=== PATIENT | female | born 1930 | race Caucasian/White ===

== ENCOUNTER 2016-12-20 10:37 | Inpatient (IN) ==
--- OUTSIDE RECORDS SUMMARY | 2016-12-20 10:58 | External Medical Summary | Summary of Care ---
:1930 Author Name Bandar Santana M.D. Address Unavailable Unavailable , Care Team Providers Name Role Phone Max Salinas, Bandar Frye Unavailable Unavailable David Epperson M.D. Unavailable Unavailable Uday Santana Unavailable Unavailable [facility] (MD) Unavailable Unavailable [facility] (MD) Unavailable Unavailable Unavailable Unavailable Unavailable Functional Status Functional Status Health Issues Name Dates Details Functional status health issues are not documented Status: Cognitive Status Health Issues Name Dates Details Cognitive status health issues are not documented Status: Problems Name Dates Details Do Not Resuscitate Form In Chart Active Status: Active Hyperglycemia (790.29, R73.9) Status: Active Left ankle pain (719.47, M25.572) Status: Active Syncope (780.2, R55) Status: Active NSAID long-term use (V58.64, Z79.1) Status: Active Arthritis (716.90, M19.90) Status: Active Edema (782.3, R60.9) Status: Active Encounter for screening mammogram for malignant neoplasm of breast (V76.12, Z12.31) Status: Active Menopause (627.2, Z78.0) Status: Active Orthopedic aftercare for joint replacement (V54.81, Z47.1) Status: Active Osteoarthritis of right hand, 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, 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 Osteoporosis (733.00, M81.0) Status: Active Diastolic dysfunction (429.9, I51.9) Status: Active Hypercholesterolemia (272.0, E78.00) Status: Active 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, 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) Status: Active Right knee pain (719.46, M25.561) Status: Active Gastroesophageal reflux disease without esophagitis (530.81, K21.9) Status: Active De Quervain's tenosynovitis (727.04, M65.4) Status: Active Pes anserine bursitis (726.61, M70.50) Status: Active Knee pain, left anterior (719.46, M25.562) Status: Active Allergic rhinitis (477.9, J30.9) Status: Active Pulmonary hypertension, mild (416.8, I27.2) Status: Active Acute frontal sinusitis, recurrence not specified (461.1, J01.10) Status: Active Acute bronchitis, unspecified organism (466.0, J20.9) Status: Active CAD (coronary atherosclerotic disease) (414.00, I25.10) Status: Active PTCA Status: Active Hyperlipidemia (272.4, E78.5) Status: Active Dermatitis (692.9, L30.9) Status: Active 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, G90.3) Status: Active Anxiety (300.00, F41.9) Status: Active Hypotension (458.9, I95.9) Status: Active Anemia (285.9, D64.9) Status: Active Abdominal pain, acute, right upper quadrant (789.01, R10.11) Status: Active Abdominal pain, acute, left upper quadrant (789.02, R10.12) Status: Active Pain, abdominal, epigastric (789.06, R10.13) Status: Active Nausea and/or vomiting (787.01, R11.2) Status: Active Diarrhea, unspecified type (787.91, R19.7) Status: Active Constipation (564.00, K59.00) Status: Active Hip pain, acute, right (719.45, M25.551) Status: Active Hip pain, left (719.45, M25.552) Status: Active Low back pain (724.2, M54.5) Status: Active 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, Z96.652) Status: Active Arthrofibrosis of knee joint, 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, 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) Status: Active Dizziness (780.4, R42) Status: Active UTI (urinary tract infection) (599.0, N39.0) Status: Active Elevated d-dimer (790.92, R79.89) Status: Active Chest pain (786.50, R07.9) Status: Active Great toe pain, left (729.5, M79.675) Status: Active Left elbow pain (719.42, M25.522) Status: Active Left shoulder pain (719.41, M25.512) Status: Active Rib pain (786.50, R07.81) Status: Active Left knee pain (719.46, M25.562) Status: Active Depression (311, F32.9) Status: Active Shortness of breath (786.05, R06.02) Status: Active Exposure to influenza (V01.79, Z20.828) Status: Active Ingrowing nail (703.0, L60.0) Status: Active Medications Name Dates Details Cetirizine HCl - 10 MG Oral Tablet TAKE 1 TABLET BY MOUTH EVERY DAY FOR ALLERGY Quantity: 31 Refills: 3 Max Dean.Reva, Uday Portillo Start Active Vitamin C 500 MG Oral Tablet take 2 tabs daily Refills: 0 Uday Santana M.D. Start 12-Sep-2011 Active Latanoprost 0.005 % Ophthalmic Solution INSTILL 1 DROP IN BOTH EYES AT BEDTIME. Refills: 0 Uday Santana M.D. Start 04-Sep-2013 Active Hydrocodone-Acetaminophen 5-325 MG Oral Tablet take 1/2-1 tab po every 4-6 hours PRN Quantity: 15 Refills: 0 Max Dean.Reva, Uday Portillo Start 04-Sep-2013 Active Meloxicam 7.5 MG Oral Tablet TAKE 1 TABLET DAILY FOR ARTHRITIS Quantity: 31 Refills: 0 Uday Santana M.D. Start Active Esomeprazole Magnesium 40 MG Oral Capsule Delayed Release TAKE 1 CAPSULE DAILY. Quantity: 31 Refills: 5 Max Dean.Uday Ardon Start Active Vitamin D3 2000 UNIT Oral Tablet TAKE ONE TAB PO DAILY Refills: 0 Max Dean.Uday Ardon Start 20-Feb-2015 Active Atorvastatin Calcium 20 MG Oral Tablet TAKE 1 TABLET DAILY AT BEDTIME Quantity: 31 Refills: 0 Max Dean.Uday Ardon Start 26-Feb-2015 Active Aspirin 81 MG TABS Refills: 0 Zeenat SalinasDomingo Start 10-Mar-2015 Active Mapap 325 MG Oral Tablet TAKE 1 TO 2 TABLETS EVERY 4 HOURS NEEDED Refills: 0 Uday Santana M.D. Start 17-Jun-2015 Active Bisacodyl 10 MG Rectal Suppository INSERT 1 SUPPOSITORY RECTALLY ONCE DAILY. Refills: 0 Max Salinas, Uday Portillo Start 12-Jan-2016 Active Mucinex 600 MG Oral Tablet Extended Release 12 Hour TAKE 1 TABLET TWICE DAILY NEEDED. Refills: 0 Uday Santana M.D. Start 12-Jan-2016 Active Triamcinolone Acetonide 0.1 % External Cream APPLY THIN FILM TO AFFECTED AREA(S) ONCE DAILY. Refills: 0 Uday Santana M.D. Start 12-Jan-2016 Active Milk of Magnesia 1200 MG/15ML Oral Suspension USE DIRECTED. Refills: 0 Max Salinas, Uday Portillo Start 08-Feb-2016 Active Tylenol 325 MG Oral Tablet TAKE 1 TO 2 TABLETS EVERY 4 HOURS NEEDED Refills: 0 Uday Santana M.D. Start 08-Feb-2016 Active Pepto-Bismol 262 MG Oral Tablet Chewable USE DIRECTED. Refills: 0 Uday Santana M.D. Start 08-Feb-2016 Active Maalox Max 400-400-40 MG/5ML Oral Suspension USE DIRECTED. Refills: 0 Uday Santana M.D. Start 08-Feb-2016 Active Mylanta 200-200-20 MG/5ML Oral Suspension USE DIRECTED. Refills: 0 Uday Santana M.D. Start 08-Feb-2016 Active Midodrine HCl - 5 MG Oral Tablet take 1 tablet two times daily Quantity: 60 Refills: 5 Start 16-Feb-2016 Active ZyrTEC Allergy 10 MG Oral Capsule TAKE ONCE DAILY NEEDED FOR ALLERGIES Refills: 0 Uday Santana M.D. Start 12-Apr-2016 Active Ondansetron 4 MG Oral Tablet Dispersible TAKE 1 TABLET EVERY 6 HOURS NEEDED FOR NAUSEA/VOMITTING Quantity: 20 Refills: 0 Max Salinas, Uday Portillo Start 12-Apr-2016 Active Allergies and Adverse Reactions Name Dates Details Codeine Derivatives (Allergy) Reaction: Rash Status: Active Morphine Derivatives (Allergy) Reaction: Rash Status: Active Penicillins (Allergy) Reaction: Rash Status: Active Sulfa Drugs (Allergy) Reaction: Rash Status: Active Past Medical History Name Dates Details History of Abrasion, cheek with infection (910.1, S00.81XA) Status: Resolved History of Acute upper back pain (724.5, M54.9) Status: Resolved History of backache (V13.59, Z87.39) Status: Resolved History of Benign colon polyp (211.3, K63.5) Status: Resolved History of bronchitis (V12.69, Z87.09) Status: Resolved History of candidiasis (V12.09, Z86.19) Status: Resolved History of Dental infection (522.4, K04.7) Status: Resolved History of diarrhea (V12.79, Z87.898) Status: Resolved History of hematuria (V13.09, Z87.448) Status: Resolved History of herpes zoster (V12.09, Z86.19) Status: Resolved History of hypertension (V12.59, Z86.79) Status: Resolved History of Ingrown toenail (703.0, L60.0) Status: Resolved History of Joint pain, knee (719.46, M25.569) Status: Resolved History of Pleural effusion, left (511.9, J90) Status: Resolved History of Thoracic back pain (724.1, M54.6) Status: Resolved History of urethritis (V13.09, Z87.448) Status: Resolved History of Urinary retention (788.20, R33.9) Status: Resolved History of Urinary symptom or sign (788.99, R39.9) Status: Resolved History of Urinary Tract Infection (V13.02) Status: Resolved History of vomiting (V13.89, Z87.898) Status: Resolved History of Wheezing (786.07, R06.2) Status: Resolved Procedures Procedure Dates Details History of Total Abdominal Hysterectomy With Removal Of Both Ovaries History of Total Hip Replacement History of Total Knee Arthroplasty History of Neuroplasty Decompression Median Nerve At Carpal Tunnel History of Cath Stent Placement History of Diagnostic Esophagogastroduodenoscopy Completed: 03-May-2009 History of Cystoscopy With Biopsy Completed: 22-Dec-2010 History of Cystoscopy With Ureteral Catheterization Completed: 22-Dec-2010 History of Cath Stent Placement History of Spinal Diskectomy History of Complete Colonoscopy Completed: 19-Mar-2007 History of Appendectomy History of Cholecystectomy Procedures not documented Immunization Name Dates Details Pneumo (Pneumovax) on: 17-Feb-2005 Pneumo (Pneumovax) on: 28-Feb-2006 Influenza on: 25-Dec-2008 Prevnar 13 Intramuscular Suspension on: 09-Jan-2015 Lot #: [id number] Family History natural son Name Dates Details Family history of Bone Cancer Status: Active Family history of Family Health Status Children Status: Active Mother Name Dates Details Family history of Breast Cancer (V16.3) Status: Active Father Name Dates Details Family history of Coronary Artery Disease Status: Active Sister Name Dates Details Family history of Colon Cancer (V16.0) Status: Active Brother Name Dates Details Family history of Coronary Artery Disease Status: Active Social History Name Dates Details - Status: Smoking Status Name Dates Details Never smoker Vital Signs Date Test Result Details 23-Jun-2016 07:46 BP Systolic 122 mm[Hg] Status: Comments: Location: ; Position: BP Diastolic 64 mm[Hg] Status: Comments: Location: ; Position: Temperature 97.7 f Status: Comments: Method: Heart Rate 87 /min Status: Comments: Location: ; Physical Findings 20 Status: Comments: Respiration Weight 153.5 lb Status: Body Mass Index Calculated 22.67 kg/m2 Status: Body Surface Area Calculated 1.85 m2 Status: Results Date Description Value Details Results not documented Plan of Care Name Dates Details Planned Observations Planned Goals not documented Planned Encounters Appointment; Provider: Jag Jenkins M.D. On 15:00 Appointment; Provider: Lanie Conn On 14:00 Appointment; Provider: Uday Santana M.D. On 11-Jul-2016 10:00 Interventions Provided Medication ChangesHydrocodone-Acetaminophen 5-325 MG Oral Tablet - Renew Instructions Name Dates Details Instructions not documented Encounters Appointment; Allegra Estrada A.P.R.N. On 23-Jun-2016 Encounter Diagnosis: Problem not documented 09:30 Appointment; Uday Santana M.D. On 31-May-2016 Encounter Diagnosis: Problem not documented 13:45 Appointment; Uday Santana M.D. On 09-May-2016 Encounter Diagnosis: Problem not documented 13:30 Appointment; Nely Pantoja DPM On 27-Apr-2016 Encounter Diagnosis: Problem not documented 13:30 Appointment; Nely Pantoja DPM On 13-Apr-2016 Encounter Diagnosis: Problem not documented 09:45 Appointment; Uday Santana M.D. On 12-Apr-2016 Encounter Diagnosis: Problem not documented 10:00 Appointment; Graciela Barron P.A. On 05-Apr-2016 Encounter Diagnosis: Problem not documented 14:40 Appointment; Juan Moon M.D. On 08-Mar-2016 Encounter Diagnosis: Problem not documented 09:45 Appointment; Allegra Estrada A.P.R.N. On 23-Feb-2016 Encounter Diagnosis: Problem not documented 10:45 Appointment; Uday Santana M.D. On 08-Feb-2016 Encounter Diagnosis: Problem not documented 10:00 Appointment; Pierre Bruno D.O. On 03-Feb-2016 Encounter Diagnosis: Problem not documented 14:20 Appointment; Uday Santana M.D. On 12-Jan-2016 Encounter Diagnosis: Problem not documented 10:00 Appointment; Uday Santana M.D. On Encounter Diagnosis: Problem not documented 11:00 Appointment; Jag Jenkins M.D. On Encounter Diagnosis: Problem not documented 13:15 Appointment; Domingo Epperson M.D. On Encounter Diagnosis: Problem not documented 09:30 Appointment; Uday Santana M.D. On 22-Sep-2015 Encounter Diagnosis: Problem not documented 10:00 Appointment; Emilie Romo M.D. On 19-Sep-2015 Encounter Diagnosis: Problem not documented 15:50 Appointment; Jenny Lopez P.A. On 17-Sep-2015 Encounter Diagnosis: Problem not documented 13:00 Appointment; Juan Moon M.D. On 15-Sep-2015 Encounter Diagnosis: Problem not documented 09:15 Appointment; Juan Moon M.D. On 01-Sep-2015 Encounter Diagnosis: Problem not documented 10:15 Appointment; Uday Santana M.D. On 11-Aug-2015 Encounter Diagnosis: Problem not documented 13:15 Appointment; Uday Santana M.D. On 29-Jul-2015 Encounter Diagnosis: Problem not documented 11:00 Appointment; Uday Santana M.D. On 17-Jun-2015 Encounter Diagnosis: Problem not documented 10:00 Appointment; Jenny Lopez PMarin On 28-May-2015 Encounter Diagnosis: Problem not documented 13:00 Appointment; Uday Santana M.D. On 17-Apr-2015 Encounter Diagnosis: Problem not documented 09:30 Appointment; Ciro Lewis P.A. On 13-Apr-2015 Encounter Diagnosis: Problem not documented 11:30 Appointment; Domingo Epperson M.D. On 02-Apr-2015 Encounter Diagnosis: Problem not documented 14:45 Appointment; Uday Santana M.D. On 18-Mar-2015 Encounter Diagnosis: Problem not documented 14:30 Appointment; Juan Moon M.D. On 17-Mar-2015 Encounter Diagnosis: Problem not documented 08:45 Appointment; Domingo Epperson M.D. On 10-Mar-2015 Encounter Diagnosis: Problem not documented 13:00 Appointment; Juan Moon M.D. On 03-Mar-2015 Encounter Diagnosis: Problem not documented 09:45 Appointment; Jenny Lopez PMarin On 20-Feb-2015 Encounter Diagnosis: Problem not documented 09:30 Appointment; Uday Santana M.D. On 27-Jan-2015 Encounter Diagnosis: Problem not documented 13:15 Appointment; Juan Moon M.D. On 20-Jan-2015 Encounter Diagnosis: Problem not documented 14:30 Appointment; Uday Santana M.D. On 09-Jan-2015 Encounter Diagnosis: Problem not documented 10:00 Appointment; Uday Santana M.D. On Encounter Diagnosis: Problem not documented 09:15 Appointment; Uday Santana M.D. On 26-Sep-2014 Encounter Diagnosis: Problem not documented 16:30 Appointment; Jenny Lopez PZayAZay On 21-Aug-2014 Encounter Diagnosis: Problem not documented 13:15 Appointment; Jag Jenkins M.D. On 10-Jul-2014 Encounter Diagnosis: Problem not documented 14:30 Appointment; Uday Santana M.D. On 02-Jul-2014 Encounter Diagnosis: Problem not documented 09:00
--- OUTSIDE RECORDS SUMMARY | 2016-12-20 10:58 | External Medical Summary | Summary of Care ---
:1930 Author Name Bandar Santana M.D. Address Unavailable Unavailable , Care Team Providers Name Role Phone Bandar Santana M.D. Unavailable Unavailable David Epperson M.D. 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9, J30.9) Status: [...] Status: Active Anxiety (300.00, F41.9) Status: Active Left knee pain (719.46, M25.562) Status: Active Medications Name Dates Details Latanoprost 0.005 % Ophthalmic Solution INSTILL 1 DROP IN BOTH EYES AT BEDTIME. Refills: 0 Uday Santana M.D. Started 04-Sep-2013 ActiveCetirizine HCl - 10 MG Oral Tablet TAKE 1 TABLET BY MOUTH EVERY DAY FOR ALLERGY Quantity: 31 Refills: 3 Uday Santana M.D. Started ActiveEsomeprazole Magnesium 40 MG Oral Capsule Delayed Release TAKE 1 CAPSULE DAILY. Quantity: 31 Refills: 5 Uday Santana M.D. Started ActiveVitamin C 500 MG Oral Tablet take 2 tabs daily Refills: 0 Uday Santana M.D. Started 12-Sep-2011 ActiveMeloxicam 7.5 MG Oral Tablet TAKE 1 TABLET DAILY FOR ARTHRITIS Quantity: 31 Refills: 0 Uday Santana M.D. Started ActiveSertraline HCl - 50 MG Oral Tablet Take 1 tablet daily Quantity: 31 Refills: 0 Uday Santana M.D. Started 23-Dec-2011 ActiveHydrocodone-Acetaminophen 5-325 MG Oral Tablet take 1/2 tab po BID prn Quantity: 15 Refills: 0 Uday Santana M.D. Started 04-Sep-2013 ActiveHydrocortisone 1 % External Cream APPLY SPARINGLY AND RUB IN WELL TO AFFECTED AREA(S) DIRECTED. Refills: 0 Uday Santana M.D. Started 27-Jan-2015 ActiveVitamin D3 2000 UNIT Oral Tablet TAKE ONE TAB PO DAILY Refills: 0 Uday Santana M.D. Started 20-Feb-2015 ActiveAspirin 81 MG TABS Refills: 0 Domingo Epperson M.D. Started 10-Mar-2015 ActiveMapap 325 MG Oral Tablet TAKE 1 TO 2 TABLETS EVERY 4 HOURS NEEDED Refills: 0 Uday Santana M.D. Started 17-Jun-2015 ActiveAtorvastatin Calcium 20 MG Oral Tablet TAKE 1 TABLET DAILY AT BEDTIME Quantity: 31 Refills: 0 Uday Santana M.D. Started 26-Feb-2015 ActiveMidodrine HCl - 5 MG Oral Tablet TAKE 1 TABLET 3 TIMES DAILY. Quantity: 90 Refills: 1 Uday Santana M.D. Started 25-Feb-2015 Active Allergies and Adverse Reactions Name Dates Details Codeine Derivatives Reaction: Rash Status: Active Morphine Derivatives Reaction: Rash Status: Active Penicillins Reaction: Rash Status: Active Sulfa Drugs Reaction: Rash Status: Active Past Medical History Name Dates Details History of Abrasion, cheek with infection (910.1, S00.81XA) Status: Resolved History of Acute upper back pain (724.5, M54.9) Status: Resolved History of backache (V13.59, Z87.39) Status: Resolved History of Benign colon polyp (211.3, K63.5) Status: Resolved History of bronchitis (V12.69, Z87.09) Status: Resolved History of candidiasis (V12.09, Z86.19) Status: Resolved History of chest pain (V13.89, Z87.898) Status: Resolved History of Dental infection (522.4, [...] Resolved Procedures Procedure Dates Details History of Appendectomy History of Cholecystectomy History of Total Abdominal Hysterectomy With Removal Of Both Ovaries History of Total Hip Replacement History of Total Knee Arthroplasty History of Neuroplasty Decompression Median Nerve At Carpal Tunnel History of Cath Stent Placement History of Diagnostic Completed:03-May-2009 Esophagogastroduodenoscopy History of Cystoscopy With Biopsy Completed:22-Dec-2010 History of Cystoscopy With Ureteral Completed:22-Dec-2010 Catheterization History of Cath Stent Placement History of Spinal Diskectomy History of Complete Colonoscopy Completed:19-Mar-2007 BASIC METABOLIC PROFILE 1210 Ordered: CBC w/ Auto Diff 7150 Ordered: XRay SPINE-LUMBAR Ordered:22-Sep-2015 Immunization Name Dates Details Pneumo (Pneumovax) Administered on:17-Feb-2005 Pneumo (Pneumovax) Administered on:28-Feb-2006 Influenza Administered on:25-Dec-2008 Prevnar 13 Intramuscular Suspension Administered on:09-Jan-2015 Lot #: [id number] Family History natural son Name Dates Details [...] Status: Active Social History Name Dates Details Smoking StatusNever smoker Vital Signs Date Test Result Details 10:25 BP Systolic 134 mm[Hg] Status: BP Diastolic 68 mm[Hg] Status: Temperature 96.8 f Status: Heart Rate 94 /min Status: Respiration Rate 18 /min Status: Weight 169.375 lb Status: Body Mass Index Calculated 25.01 kg/m2 Status: Body Surface Area Calculated 1.92 m2 Status: 13:31 BP Systolic 160 mm[Hg] Status: BP Diastolic 74 mm[Hg] Status: Heart Rate 86 /min Status: Weight 171 lb Status: Body Mass Index Calculated 25.25 kg/m2 Status: Body Surface Area Calculated 1.93 m2 Status: 09:21 BP Systolic 132 mm[Hg] Status: BP Diastolic 74 mm[Hg] Status: Heart Rate 68 /min Status: Height 69 in Status: O2 SAT 98 % Status: Results Date Description Value Details 10:25 BASIC METABOLIC PROFILE 1210 SODIUM 142 mmol/L Range: 133-144 (Better) POTASSIUM 4.6 mmol/L Range: 3.5-5.1 (Better) CHLORIDE 105 mmol/L Range: 98-110 (Better) CARBON DIOXIDE 25.6 mmol/L Range: 23.0-33.0 (Better) ANION GAP 11 mmol/L (Better) Range: 6-16 BUN 20 mg/dL (Above Range: 7-18 high threshold) CREATININE, SERUM 1.02 mg/dL Range: 0.55-1.02 (Better) Comments: Please note new reference ranges effective 2014.- ---- EST GFR, >60 ml/min Range: >60 (Better) EST GFR, NON-AFR BURMESE 51 ml/min (Below Range: >60 low threshold) Comments: EST GFR is reported in ml/min per 1.73 m2 of body surface area. For -Maldivian, please multiple result by 1.2.----- BUN:CREATININE RATIO 20 (Better) GLUCOSE 98 mg/dL (Better) Range: 70-100 CALCIUM 9.3 mg/dL (Better) Range: 8.5-10.1 10:53 HEMOGLOBIN A1C 3507 Hemoglobin A1C 5.8 % (Better) ESTIMATED AVG. GLUCOSE 120 (Better) Plan of Care Planned Observations Name Dates Details Planned Goals not documented Goal Planned Encounters Appointment; Provider: Jag Jenkins On 15:00 Appointment; Provider: Domingo Epperson On 09:30 Appointment; Provider: Uday Santana On 12-Jan-2016 10:00 Appointment; Provider: Schedule Radiology On 20-Mar-2015 14:00 Appointment; Provider: Schedule Radiology On 12-Feb-2015 14:20 Appointment; Provider: Schedule Radiology On 12-Feb-2015 14:20 Appointment; Provider: Schedule Radiology On 12-Feb-2015 14:00 Appointment; Provider: Barry Macdonald On 22-Dec-2010 11:45 Appointment; Provider: Bryan Melara On 03-May-2009 08:30 Instructions Instructions not documented Encounters Appointment; Uday Santana On Encounter Diagnosis: Problem not documented 11:00 Appointment; Jag Jenkins On Encounter Diagnosis: Problem not documented 13:15 Appointment; Domingo Epperson On Encounter Diagnosis: Problem not documented 09:30 Appointment; Uday Santana On 22-Sep-2015 Encounter Diagnosis: Problem not documented 10:00 Appointment; Emilie Romo On 19-Sep-2015 Encounter Diagnosis: Problem not documented 15:50 Appointment; Jenny Lopez On 17-Sep-2015 Encounter Diagnosis: Problem not documented 13:00 Appointment; Juan Moon On 15-Sep-2015 Encounter Diagnosis: Problem not documented 09:15 Appointment; Juan Moon On 01-Sep-2015 Encounter Diagnosis: Problem not documented 10:15 Appointment; Uday Santana On 11-Aug-2015 Encounter Diagnosis: Problem not documented 13:15 Appointment; Uday Santana On 29-Jul-2015 Encounter Diagnosis: Problem not documented 11:00 Appointment; Uday Santana On 17-Jun-2015 Encounter Diagnosis: Problem not documented 10:00 Appointment; Jenny Lopez On 28-May-2015 Encounter Diagnosis: Problem not documented 13:00 Appointment; Uday Santana On 17-Apr-2015 Encounter Diagnosis: Problem not documented 09:30 Appointment; Ciro Lewis On 13-Apr-2015 Encounter Diagnosis: Problem not documented 11:30 Appointment; Domingo Epperson On 02-Apr-2015 Encounter Diagnosis: Problem not documented 14:45 Appointment; Uday Santana On 18-Mar-2015 Encounter Diagnosis: Problem not documented 14:30 Appointment; Juan Moon On 17-Mar-2015 Encounter Diagnosis: Problem not documented 08:45 Appointment; Domingo Epperson On 10-Mar-2015 Encounter Diagnosis: Problem not documented 13:00 Appointment; Juan Moon On 03-Mar-2015 Encounter Diagnosis: Problem not documented 09:45 Appointment; Jenny Lopez On 20-Feb-2015 Encounter Diagnosis: Problem not documented 09:30 Appointment; Uday Santana On 27-Jan-2015 Encounter Diagnosis: Problem not documented 13:15 Appointment; Juan Moon On 20-Jan-2015 Encounter Diagnosis: Problem not documented 14:30 Appointment; Uday Santana On 09-Jan-2015 Encounter Diagnosis: Problem not documented 10:00 Appointment; Uday Santana On Encounter Diagnosis: Problem not documented 09:15 Appointment; Uday Snatana On 26-Sep-2014 Encounter Diagnosis: Problem not documented 16:30 Appointment; Jenny Lopez On 21-Aug-2014 Encounter Diagnosis: Problem not documented 13:15 Appointment; Jag Jenkins On 10-Jul-2014 Encounter Diagnosis: Problem not documented 14:30 Appointment; Uday Santana On 02-Jul-2014 Encounter Diagnosis: Problem not documented 09:00 Appointment; Uday Santana On 28-May-2014 Encounter Diagnosis: Problem not documented 09:30 Appointment; Jenny Lopez On 19-Mar-2014 Encounter Diagnosis: Problem not documented 13:00 Appointment; Uday Santana On 20-Feb-2014 Encounter Diagnosis: Problem not documented 09:00 Appointment; Uday Santana On 18-Dec-2013 Encounter Diagnosis: Problem not documented 10:30 Appointment; Allegra Keating On Encounter Diagnosis: Problem not documented 09:45
--- OUTSIDE RECORDS SUMMARY | 2016-12-20 10:59 | External Medical Summary | Summary of Care ---
:1930 Author Name Emilie Romo M.D. Address [address], [place] [id number] Care Team Providers Name Role Phone Max Salinas, Bandar Frye Unavailable Unavailable David Epperson M.D. Unavailable Unavailable Uday Santana Primary Care Provider Unavailable [facility] ([place]) Referring Provider Unavailable Unavailable Unavailable Unavailable Functional Status Functional Status Health Issues Name Dates Details Functional status health issues are not documented Status: Cognitive Status Health Issues Name Dates Details Cognitive status health issues are not documented Status: Problems Name Dates Details Do Not Resuscitate Form In Chart Active Status: Active Anxiety (300.00, F41.9) Status: Active Hyperglycemia (790.29, R73.9) Status: Active Hematuria (599.70, R31.9) Status: Active Allergic rhinitis (477.9, J30.9) Status: Active Benign colon polyp (211.3, K63.5) Status: Active Left ankle pain (719.47, M25.572) Status: Active Joint pain, knee (719.46, M25.569) Status: Active Syncope (780.2, R55) Status: Active Hyperlipidemia (272.4, E78.5) Status: Active PTCA Status: Active Ingrown toenail (703.0, L60.0) Status: Active NSAID long-term use (V58.64, Z79.1) Status: Active Arthritis (716.90, M19.90) Status: Active Edema (782.3, R60.9) Status: Active Urinary symptom or sign (788.99, R39.9) Status: Active Knee pain, left anterior (719.46, M25.562) Status: Active Encounter for screening mammogram for malignant neoplasm of breast (V76.12, Z12.31) Status: Active Menopause (627.2, Z78.0) Status: Active Orthopedic aftercare for joint replacement (V54.81, Z47.1) Status: Active Osteoarthritis of right hand, 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, 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, Z96.652) Status: Active Bronchitis (490, J40) Status: Active 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, 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) Status: Active Left knee pain (719.46, M25.562) Status: Active Anemia (285.9, D64.9) Status: Active Osteoporosis (733.00, M81.0) Status: Active Hypotension (458.9, I95.9) Status: Active Pes anserine bursitis (726.61, M70.50) Status: Active Pleural effusion, left (511.9, J90) Status: Active Pulmonary hypertension, mild (416.8, I27.2) Status: Active Chest pain (786.50, R07.9) Status: Active Thoracic back pain (724.1, M54.6) Status: Active CAD (coronary atherosclerotic disease) (414.00, I25.10) Status: Active Depression (311, F32.9) Status: Active Diastolic dysfunction (429.9, I51.9) Status: Active Hypercholesterolemia (272.0, E78.0) Status: Active Gastroesophageal reflux disease without esophagitis (530.81, K21.9) Status: Active Medications Name Dates Details Cetirizine HCl - 10 MG Oral Tablet TAKE 1 TABLET BY MOUTH EVERY DAY FOR ALLERGY Quantity: 31 Refills: 11 Uday Santana M.D. Started ActiveVitamin C 500 MG Oral Tablet Take 1 tablet twice daily Refills: 0 Uday Santana M.D. Started 12-Sep-2011 ActiveSertraline HCl - 50 MG Oral Tablet Take 1 tablet daily Quantity: 31 Refills: 5 Uday Santana M.D. Started 23-Dec-2011 ActiveChildrens Aspirin 81 MG Oral Tablet Chewable CHEW AND SWALLOW 1 TABLET DAILY. Refills: 0 Uday Santana M.D. Started 04-Sep-2013 ActiveLatanoprost 0.005 % Ophthalmic Solution INSTILL 1 DROP IN BOTH EYES AT BEDTIME. Refills: 0 Uday Santana M.D. Started 04-Sep-2013 ActiveHydrocodone-Acetaminophen 5-325 MG Oral Tablet take 1/2 tab po BID prn Quantity: 15 Refills: 0 Uday Santana M.D. Started 04-Sep-2013 ActiveMeloxicam 7.5 MG Oral Tablet TAKE 1 TABLET DAILY FOR ARTHRITIS Quantity: 31 Refills: 0 Uday Santana M.D. Started ActiveFurosemide 40 MG Oral Tablet TAKE 1 TABLET Every morning Quantity: 31 Refills: 3 Uday Santana M.D. Started ActiveAtorvastatin Calcium 40 MG Oral Tablet TAKE 1/2 TABLET DAILY. Quantity: 15 Refills: 0 Uday Santana M.D. Started 24-Dec-2013 ActiveEsomeprazole Magnesium 40 MG Oral Capsule Delayed Release TAKE 1 CAPSULE DAILY. Quantity: 30 Refills: 5 Uday Santana M.D. Started ActiveHydrocortisone 1 % External Cream APPLY SPARINGLY AND RUB IN WELL TO AFFECTED AREA(S) DIRECTED. Refills: 0 Uday Santana M.D. Started 27-Jan-2015 ActiveMucinex 600 MG Oral Tablet Extended Release 12 Hour Take 1 po bid x10 days then prn Refills: 0 Started 27-Jan-2015 ActiveVitamin D3 2000 UNIT Oral Tablet TAKE ONE TAB PO DAILY Refills: 0 Uday Santana M.D. Started 20-Feb-2015 ActiveAlendronate Sodium 70 MG Oral Tablet TAKE 1 TABLET 30-60 MINUTES PRIOR TO BREAKFAST ON AN EMPTY STOMACH. DO NOT LIE DOWN AFTER TAKING MEDICATION. Refills: 0 Uday Santana M.D. Started 20-Feb-2015 ActiveMidodrine HCl - 5 MG Oral Tablet TAKE 1 TABLET BID Quantity: 60 Refills: 0 Uday Santana M.D. Started 25-Feb-2015 ActiveAtorvastatin Calcium 20 MG Oral Tablet TAKE 1 TABLET DAILY AT BEDTIME Quantity: 31 Refills: 0 Uday Santana M.D. Started 26-Feb-2015 ActiveAspirin 81 MG Oral Tablet Refills: 0 Domingo Epperson M.D. Started 10-Mar-2015 Active Allergies and Adverse Reactions Name Dates Details Codeine Derivatives Reaction: Rash Status: Active Morphine Derivatives Reaction: Rash Status: Active Penicillins Reaction: Rash Status: Active Sulfa Drugs Reaction: Rash Status: Active Past Medical History Name Dates Details History of Abrasion, cheek with infection (910.1, S00.81XA) Status: Resolved History of backache (V13.59, Z87.39) Status: Resolved History of candidiasis (V12.09, Z86.19) Status: Resolved History of Dental infection (522.4, K04.7) Status: Resolved History of diarrhea (V12.79, Z87.898) Status: Resolved History of herpes zoster (V12.09, Z86.19) Status: Resolved History of hypertension (V12.59, Z86.79) Status: Resolved History of urethritis (V13.09, Z87.448) Status: Resolved History of Urinary retention (788.20, R33.9) Status: Resolved History of Urinary Tract Infection [...] Spinal Diskectomy History of Complete Colonoscopy Completed:19-Mar-2007 ORTHO KNEE LEFT (3 VIEWS ONLY) Ordered:20-Jan-2015 CT CHEST WITHOUT IV CONTRAST Ordered:10-Mar-2015 ULTRASOUND THORACENTESIS SONO Ordered:10-Mar-2015 Immunization Name Dates Details Pneumo (Pneumovax) Administered on:17-Feb-2005 Pneumo (Pneumovax) Administered on:28-Feb-2006 Influenza Administered on:25-Dec-2008 Prevnar 13 Intramuscular Suspension Administered on:09-Jan-2015 Lot #: [id number] Family History natural son Name Dates Details [...] smoker Vital Signs Date Test Result Details 10-Mar-2015 12:59 BP Systolic 122 mm[Hg] Status: BP Diastolic 68 mm[Hg] Status: Heart Rate 73 /min Status: Height 68.1 in Status: Weight 169.5 lb Status: O2 SAT 97 % Status: Body Mass Index Calculated 25.7 kg/m2 Status: Body Surface Area Calculated 1.91 m2 Status: 20-Feb-2015 15:08 BP Systolic 140 mm[Hg] Status: BP Diastolic 60 mm[Hg] Status: Temperature 97 f Status: Heart Rate 75 /min Status: Respiration Rate 14 /min Status: Results Date Description Value Details 12-Feb-2015 15:03 MAMMOGRAM-SCREENING Comments: Exam Date: 02/12/2015 13: 57Dictation Date: 02/12/2015 15:03 XM SCREENING (Better) 15:03 DEXA Comments: Exam Date: 02/12/2015 13:56Dictation Date: 2014 15:03 XD DEXA (Better) 10-Mar-2015 11:07 CBC w/ Auto Diff 7150 WBC 9.7 K/uL (Better) Range: 4.5-11.0 RBC 4.09 mil/uL Range: 3.60-5.00 (Better) HGB 12.3 g/dL Range: 12.0-16.0 (Better) HCT 38.7 % (Better) Range: 36.0-48.0 MCV 94.7 fL (Better) Range: 80.0-99.0 MCH 30.0 pg (Better) Range: 27.3-32.5 MCHC 31.7 % (Below low Range: 32.0-36.0 threshold) RDW 13.5 % (Better) Range: 11.6-14.8 PLATELETS 254 K/uL (Better) Range: 150-400 MPV 7.3 fL (Better) Range: 6.0-11.0 %NEUTRO 70.7 % (Better) Range: 37.0-80.0 %LYMPHS 19.2 % (Better) Range: 13.0-50.0 %MONO 5.7 % (Better) Range: 0.0-12.0 %EOS 2.0 % (Better) Range: 0.0-7.0 %BASO 0.6 % (Better) Range: 0.0-2.5 %RIANNA 1.9 % (Better) Range: 0.0-5.0 NEUTRO 6.8 K/uL (Better) Range: 2.0-6.9 LYMPHS 1.9 K/uL (Better) Range: 0.6-3.4 MONOS 0.6 K/uL (Better) Range: 0.0-0.9 EOS 0.2 K/uL (Better) Range: 0.0-0.7 BASO 0.1 K/uL (Better) Range: 0.0-0.2 11:30 Comprehensive Metabolic Panel 1212 SODIUM 139 mmol/L Range: 133-144 (Better) POTASSIUM 3.9 mmol/L Range: 3.5-5.1 (Better) CHLORIDE 103 mmol/L Range: 98-110 (Better) CARBON DIOXIDE 24.9 mmol/L Range: 23.0-33.0 (Better) ANION GAP 11 mmol/L Range: 6-16 (Better) BUN 21 mg/dL (Above Range: 7-18 high threshold) CREATININE, SERUM 1.38 mg/dL (Above Range: 0.55-1.02 high threshold) Comments: Please note new reference ranges effective 09/20.----- BUN:CREATININE RATIO 15 (Better) EST GFR, 44 ml/min (Below Range: >60 low threshold) EST GFR, NON-AFR [place] 36 ml/min (Below Range: >60 low threshold) Comments: EST GFR is reported in ml/min per 1.73 m2 of body surface area. For -Samoan, please multiple result by 1.2.----- GLUCOSE 80 mg/dL (Better) Range: 70-100 ALK PHOSPHATASE 111 U/L (Better) Range: 46-116 TOTAL BILIRUBIN 0.50 mg/dL Range: 0.20-1.00 (Better) AST 17 U/L (Better) Range: 8-35 ALT 18 U/L (Better) Range: 14-59 Comments: Please note new reference ranges. Effective 07/10/2014.----- ALBUMIN 3.2 g/dL (Below Range: 3.4-5.0 low threshold) TOTAL PROTEIN 7.0 g/dL (Better) Range: 6.4-8.2 A/G RATIO 0.8 units (Below Range: 1.0-1.8 low threshold) CALCIUM 8.4 mg/dL (Below Range: 8.5-10.1 low threshold) 11:23 ECG/ EKG (Specialists) Electro CardioGram (Better) 11:57 THYROID STIM. HORMONE 3602 THYROID STIM. HORMONE 1.734 uIU/mL Range: 0.550-4.780 (Better) Comments: No established reference ranges for infants and children <2 years of age----- Plan of Care Planned Observations Name Dates Details Planned Goals not documented Goal Planned Encounters Appointment; Provider: Jag Jenkins On 09-Jul-2015 15:15 Appointment; Provider: Uday Santana On 17-Apr-2015 09:30 Appointment; Provider: Schedule Radiology On 20-Mar-2015 15:00 Appointment; Provider: Schedule Radiology On 20-Mar-2015 14:00 Appointment; Provider: Juan Moon On 17-Mar-2015 08:45 Appointment; Provider: Schedule Radiology On 12-Feb-2015 14:20 Appointment; Provider: Schedule Radiology On 12-Feb-2015 14:20 Appointment; Provider: Schedule Radiology On 12-Feb-2015 14:00 Appointment; Provider: Barry Macdonald On 22-Dec-2010 11:45 Appointment; Provider: Bryan Melara On 03-May-2009 08:30 Instructions Instructions not documented Encounters Appointment; Domingo Epperson On 10-Mar-2015 Encounter Diagnosis: [...] Problem not documented 09:15 Appointment; Uday Santana On 26-Sep-2014 Encounter Diagnosis: Problem not documented [...] On Encounter Diagnosis: Problem not documented 09:45 Appointment; Uday Santana On 18-Sep-2013 Encounter Diagnosis: Problem not documented 09:45 Appointment; Uday Santana On 18-Jul-2013 Encounter Diagnosis: Problem not documented 10:15 Appointment; Uday Santana On 16-Jul-2013 Encounter Diagnosis: Problem not documented 09:45 Appointment; Jag Jenkins On 11-Jul-2013 Encounter Diagnosis: Problem not documented 14:30 Appointment; Uday Santana On 03-Jun-2013 Encounter Diagnosis: Problem not documented 14:45 Appointment; Uday Santana On 14-May-2013 Encounter Diagnosis: Problem not documented 10:45 Appointment; Uday Santana On 12-Apr-2013 Encounter Diagnosis: Problem not documented 09:30
--- OUTSIDE RECORDS SUMMARY | 2016-12-20 10:59 | External Medical Summary | Summary of Care ---
:1930 Author Name David Epperson M.D. Address [address], [place] [id number] Care Team Providers Name Role Phone Max Salinas, Bandar Frye Unavailable Unavailable David Epperson M.D. Unavailable Unavailable Uday Santana Primary Care Provider Unavailable [facility] ([place]) Referring Provider Unavailable Unavailable Unavailable Unavailable Functional Status Functional Status Health Issues Name Dates Details Functional status health issues are not documented Status: Cognitive Status Health Issues Name Dates Details Cognitive status health issues are not documented Status: Problems Name Dates Details Do Not Resuscitate Form In Chart Active Status: Active Anxiety (300.00, F41.9) Status: Active Hyperglycemia (790.29, R73.9) Status: Active Allergic rhinitis (477.9, J30.9) Status: Active Benign colon polyp (211.3, K63.5) Status: Active Left ankle pain (719.47, M25.572) Status: Active Syncope (780.2, R55) Status: Active PTCA Status: Active NSAID long-term use (V58.64, Z79.1) Status: Active Arthritis (716.90, M19.90) Status: Active Edema (782.3, R60.9) Status: Active Knee pain, left anterior (719.46, M25.562) Status: Active Encounter for screening mammogram for malignant neoplasm of breast (V76.12, Z12.31) Status: Active Menopause (627.2, Z78.0) Status: Active Orthopedic aftercare for joint replacement (V54.81, Z47.1) Status: Active Osteoarthritis of right hand, 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, 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, 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) Status: Active 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, 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) Status: Active Left knee pain (719.46, M25.562) Status: Active Anemia (285.9, D64.9) Status: Active Osteoporosis (733.00, M81.0) Status: Active Pes anserine bursitis (726.61, M70.50) Status: Active Diastolic dysfunction (429.9, I51.9) Status: Active Hypercholesterolemia (272.0, E78.0) Status: Active Gastroesophageal reflux disease without esophagitis (530.81, K21.9) Status: Active 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 Started 12-Sep-2011 ActiveChildrens Aspirin 81 MG Oral Tablet Chewable CHEW AND SWALLOW 1 TABLET DAILY. Refills: 0 Uday Santana M.D. Started 04-Sep-2013 ActiveLatanoprost 0.005 % Ophthalmic Solution INSTILL 1 DROP IN BOTH EYES AT BEDTIME. Refills: 0 Uday Santana M.D. Started 04-Sep-2013 ActiveSertraline HCl - 50 MG Oral Tablet Take 1 tablet daily Quantity: 31 Refills: 5 Uday Santana M.D. Started 23-Dec-2011 ActiveHydrocodone-Acetaminophen 5-325 MG Oral Tablet take 1/2 tab po BID prn Quantity: 15 Refills: 0 Uday Santana M.D. Started 04-Sep-2013 ActiveFurosemide 40 MG Oral Tablet TAKE 1 TABLET Every morning Quantity: 31 Refills: 3 Uday Santana M.D. Started ActiveHydrocortisone 1 % External Cream APPLY SPARINGLY AND RUB IN WELL TO AFFECTED AREA(S) DIRECTED. Refills: 0 Uday Santana M.D. Started 27-Jan-2015 ActiveVitamin D3 2000 UNIT Oral Tablet TAKE ONE TAB PO DAILY Refills: 0 Uday Santana M.D. Started 20-Feb-2015 ActiveAtorvastatin Calcium 20 MG Oral Tablet TAKE 1 TABLET DAILY AT BEDTIME Quantity: 31 Refills: 0 Uday Santana M.D. Started 26-Feb-2015 ActiveMeloxicam 7.5 MG Oral Tablet TAKE 1 TABLET DAILY FOR ARTHRITIS Quantity: 31 Refills: 0 Uday Santana M.D. Started ActiveAspirin 81 MG Oral Tablet Refills: 0 Doimngo Epperson M.D. Started 10-Mar-2015 ActivePredniSONE 20 MG Oral Tablet TAKE 3 TABLET with breakfast Refills: 0 Uday Santana M.D. Started 18-Mar-2015 ActiveAlendronate Sodium 70 MG Oral Tablet TAKE 1 TABLET Weekly Quantity: 4 Refills: 3 Uday Santana M.D. Started 20-Feb-2015 ActiveMidodrine HCl - 5 MG Oral Tablet Take 1 tablet twice a day Quantity: 60 Refills: 0 Uday Santana M.D. Started 25-Feb-2015 ActiveCetirizine HCl - 10 MG Oral Tablet TAKE 1 TABLET BY MOUTH EVERY DAY FOR ALLERGY Quantity: 31 Refills: 0 Uday Santana M.D. Started ActiveEsomeprazole Magnesium 40 MG Oral Capsule Delayed Release TAKE 1 CAPSULE DAILY. Quantity: 30 Refills: 0 Uday Santana M.D. Started ActiveBaclofen 10 MG Oral Tablet TAKE 1 TABLET 3 TIMES DAILY NEEDED FOR MUSCLE SPASM. Refills: 0 Uday Santana M.D. Started 18-Mar-2015 Active Allergies and Adverse Reactions Name Dates [...] backache (V13.59, Z87.39) Status: Resolved History of bronchitis (V12.69, Z87.09) [...] Spinal Diskectomy History of Complete Colonoscopy Completed:19-Mar-2007 Amylase Body Fluid 1251 Ordered:16-Mar-2015 Glucose, Body Fluid 1134 Ordered:16-Mar-2015 BODY FLUID CELL COUNT 7629 Ordered:16-Mar-2015 Triglycerides, Body Fluid 1257 Ordered:16-Mar-2015 Ph Body Fluid 1128 Ordered:16-Mar-2015 Total Protein, Body Fluid 1152 Ordered:16-Mar-2015 MYCOBACTERIA ( AFB) CULTURE 5220 Ordered:16-Mar-2015 FLUID CULTURE (Aerobic) Ordered:16-Mar-2015 GLUCOSE 1100 Ordered:16-Mar-2015 TOTAL PROTEIN 1150 Ordered:16-Mar-2015 LDH 1140 Ordered:16-Mar-2015 CBC w/ Auto Diff 7150 Ordered:17-Apr-2015 BASIC METABOLIC PROFILE 1210 Ordered:17-Apr-2015 ULTRASOUND THORACENTESIS SONO Ordered:10-Mar-2015 Immunization Name Dates Details Pneumo (Pneumovax) Administered on:17-Feb-2005 Pneumo (Pneumovax) Administered on:28-Feb-2006 Influenza Administered on:25-Dec-2008 Prevnar 13 Intramuscular Suspension Administered on:09-Jan-2015 Lot #: [id number] Family History natural son Name Dates Details [...] smoker Vital Signs Date Test Result Details 17-Apr-2015 09:31 BP Systolic 118 mm[Hg] Status: BP Diastolic 60 mm[Hg] Status: Temperature 97.7 f Status: Heart Rate 72 /min Status: O2 SAT 95 % Status: 13-Apr-2015 11:35 BP Systolic 120 mm[Hg] Status: BP Diastolic 58 mm[Hg] Status: Heart Rate 80 /min Status: Weight 171 lb Status: Body Mass Index Calculated 25.93 kg/m2 Status: Body Surface Area Calculated 1.91 m2 Status: 02-Apr-2015 13:44 BP Systolic 120 mm[Hg] Status: BP Diastolic 84 mm[Hg] Status: Heart Rate 86 /min Status: O2 SAT 97 % Status: Results Date Description Value Details Results not documented Plan of Care Planned Observations Name Dates Details Planned Goals not documented Goal Planned Encounters Appointment; Provider: Jag Jenkins On 13:15 Appointment; Provider: Domingo Epperson On 09:30 Appointment; Provider: Uday Santana On 29-Jul-2015 11:00 Appointment; Provider: Jag Jenkins On 09-Jul-2015 15:15 Appointment; Provider: Jenny Lopez On 28-May-2015 13:00 Appointment; Provider: Schedule Radiology On 20-Mar-2015 14:00 Appointment; Provider: Schedule Radiology On 12-Feb-2015 14:20 Appointment; Provider: Schedule Radiology On 12-Feb-2015 14:20 Appointment; Provider: Schedule Radiology On 12-Feb-2015 14:00 Appointment; Provider: Barry Macdonald On 22-Dec-2010 11:45 Appointment; Provider: Bryan Melara On 03-May-2009 08:30 Instructions Instructions not documented Encounters Appointment; Uday Santana On 17-Apr-2015 Encounter Diagnosis: [...]
--- OUTSIDE RECORDS SUMMARY | 2016-12-20 10:59 | External Medical Summary | Summary of Care ---
:1930 Author Name Bandar Santana M.D. Address [address], [place] [id number] Care Team Providers Name Role Phone Bandar Santana M.D. Unavailable Unavailable David Epperson M.D. 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 Started ActiveVitamin C 500 MG Oral Tablet take 2 tabs daily Refills: 0 Uday Santana M.D. Started 12-Sep-2011 ActiveSertraline HCl - 50 MG Oral Tablet Take 1 tablet daily Quantity: 31 Refills: 0 Uday Santana M.D. Started 23-Dec-2011 ActiveChildrens Aspirin [...] DAILY FOR ARTHRITIS Quantity: 31 Refills: 0 dUay Santana M.D. Started ActiveEsomeprazole Magnesium 40 MG Oral Capsule Delayed Release TAKE 1 CAPSULE DAILY. Quantity: 31 Refills: 5 Uday Santana M.D. Started ActiveHydrocortisone [...] Refills: 1 Uday Santana M.D. Started 25-Feb-2015 ActiveAtorvastatin Calcium 20 MG Oral Tablet TAKE 1 TABLET DAILY AT BEDTIME Quantity: 31 Refills: 0 Uday Santana M.D. Started 26-Feb-2015 ActiveAspirin 81 MG Oral Tablet Refills: 0 Domingo Epperson M.D. Started 10-Mar-2015 ActiveBaclofen 10 MG Oral Tablet TAKE 1 TABLET 3 TIMES DAILY NEEDED FOR MUSCLE SPASM. Refills: 0 Uday Santana M.D. Started 18-Mar-2015 ActiveMapap 325 MG Oral Tablet TAKE 1 TO 2 TABLETS EVERY 4 HOURS NEEDED Refills: 0 Uday Santana M.D. Started 17-Jun-2015 Active Allergies and Adverse Reactions Name Dates [...] Cath Stent Placement History of Diagnostic Esophagogastroduodenoscopy Completed:03-May-2009 History of Cystoscopy With Biopsy Completed:22-Dec-2010 History of Cystoscopy With Ureteral Catheterization Completed:22-Dec-2010 History of Cath Stent Placement History of Spinal Diskectomy History of Complete Colonoscopy Completed:19-Mar-2007 Procedures not documented Immunization Name Dates Details Pneumo (Pneumovax) Administered on:17-Feb-2005 Pneumo (Pneumovax) Administered on:28-Feb-2006 Influenza Administered on:25-Dec-2008 Prevnar 13 Intramuscular Suspension Administered on:09-Jan-2015 Lot #: [id number] Family History natural son Name Dates Details [...] smoker Vital Signs Date Test Result Details 29-Jul-2015 11:29 BP Systolic 122 mm[Hg] Status: BP Diastolic 76 mm[Hg] Status: Heart Rate 84 /min Status: Weight 167 lb Status: Body Mass Index Calculated 25.32 kg/m2 Status: Body Surface Area Calculated 1.9 m2 Status: Results Date Description Value Details 29-Jul-2015 08:09 CBC w/ Auto Diff 7150 WBC 9.4 K/uL (Better) Range: 4.5-11.0 RBC 4.19 mil/uL Range: 3.60-5.00 (Better) HGB 12.9 g/dL (Better) Range: 12.0-16.0 HCT 39.3 % (Better) Range: 36.0-48.0 MCV 93.7 fL (Better) Range: 80.0-99.0 MCH 30.9 pg (Better) Range: 27.3-32.5 MCHC 32.9 % (Better) Range: 32.0-36.0 RDW 13.0 % (Better) Range: 11.6-14.8 PLATELETS 213 K/uL (Better) Range: 150-400 MPV 7.6 fL (Better) Range: 6.0-11.0 %NEUTRO 61.3 % (Better) Range: 37.0-80.0 %LYMPHS 27.8 % (Better) Range: 13.0-50.0 %MONO 6.8 % (Better) Range: 0.0-12.0 %EOS 1.8 % (Better) Range: 0.0-7.0 %BASO 0.6 % (Better) Range: 0.0-2.5 %RIANNA 1.8 % (Better) Range: 0.0-5.0 NEUTRO 5.7 K/uL (Better) Range: 2.0-6.9 LYMPHS 2.6 K/uL (Better) Range: 0.6-3.4 MONOS 0.6 K/uL (Better) Range: 0.0-0.9 EOS 0.2 K/uL (Better) Range: 0.0-0.7 BASO 0.1 K/uL (Better) Range: 0.0-0.2 08:16 BASIC METABOLIC PROFILE 1210 SODIUM 137 mmol/L Range: 133-144 (Better) POTASSIUM 3.7 mmol/L Range: 3.5-5.1 (Better) CHLORIDE 100 mmol/L Range: 98-110 (Better) CARBON DIOXIDE 24.6 mmol/L Range: 23.0-33.0 (Better) ANION GAP 12 mmol/L (Better) Range: 6-16 BUN 20 mg/dL (Above Range: 7-18 high threshold) CREATININE, SERUM 1.36 mg/dL (Above Range: 0.55-1.02 high threshold) Comments: Please note new reference ranges effective 09/20.----- EST GFR, 45 ml/min (Below Range: >60 low threshold) EST GFR, NON-AFR NIGERIEN 37 ml/min (Below Range: >60 low threshold) Comments: EST GFR is reported in ml/min per 1.73 m2 of body surface area. For -Serbian, please multiple result by 1.2.----- BUN:CREATININE RATIO 15 (Better) GLUCOSE 99 mg/dL (Better) Range: 70-100 CALCIUM 9.2 mg/dL (Better) Range: 8.5-10.1 Plan of Care Planned Observations Name Dates Details Planned Goals not documented Goal Planned Encounters Appointment; Provider: Jag Jenkins On 13:15 Appointment; Provider: Domingo Epperson On 09:30 Appointment; Provider: Schedule Radiology On 20-Mar-2015 14:00 Appointment; Provider: Schedule Radiology On 12-Feb-2015 14:20 Appointment; Provider: Schedule Radiology On 12-Feb-2015 14:20 Appointment; Provider: Schedule Radiology On 12-Feb-2015 14:00 Appointment; Provider: Barry Macdonald On 22-Dec-2010 11:45 Appointment; Provider: Bryan Melara On 03-May-2009 08:30 Instructions Instructions not documented Encounters Appointment; Uday Santana On 29-Jul-2015 Encounter Diagnosis: [...]
--- OUTSIDE RECORDS SUMMARY | 2016-12-20 10:59 | External Medical Summary | Summary of Care ---
:1930 Author Name Bandar Santana M.D. Address [address], [place] [id number] Care Team Providers Name Role Phone Bandar Santana M.D. Unavailable Unavailable Uday Santana Primary Care Provider Unavailable [facility] ([place]) Referring Provider Unavailable Unavailable Unavailable Unavailable Functional Status Functional Status Health Issues Name Dates Details Functional status health issues are not documented Status: Cognitive Status Health Issues Name Dates Details Cognitive status health issues are not documented Status: Problems Name Dates Details Do Not Resuscitate Form In Chart Active Status: Active Anxiety (300.00, F41.9) Status: Active Routine history and physical examination of adult (V70.0, Z00.00) Status: Active Hyperglycemia (790.29, R73.9) Status: Active Hematuria (599.70, R31.9) Status: Active Allergic rhinitis (477.9, J30.9) Status: Active Abnormal weight loss (783.21, R63.4) Status: Active Benign colon polyp (211.3, K63.5) Status: Active Left ankle pain (719.47, M25.572) Status: Active Joint pain, knee (719.46, M25.569) Status: Active Dyspnea (786.09, R06.00) Status: Active Depression (311, F32.9) Status: Active Anemia (285.9, D64.9) Status: Active Syncope (780.2, R55) Status: Active CAD (coronary atherosclerotic disease) (414.00, I25.10) Status: Active PTCA Status: Active Hyperlipidemia (272.4, E78.5) Status: Active Hypotension (458.9, I95.9) Status: Active Ingrown toenail (703.0, L60.0) Status: Active NSAID long-term use (V58.64, Z79.1) Status: Active Arthritis (716.90, M19.90) Status: Active Esophageal reflux (530.81, K21.9) Status: Active Edema (782.3, R60.9) Status: Active Medications Name Dates Details Cetirizine [...] TABLET DAILY FOR ARTHRITIS Quantity: 31 Refills: 5 Uday Santana M.D. Started ActiveFurosemide 40 MG Oral Tablet TAKE 1 TABLET Every morning Quantity: 31 Refills: 5 Uday Santana M.D. Started ActiveAtorvastatin Calcium 40 MG Oral Tablet TAKE 1/2 TABLET DAILY. Refills: 0 Uday Santana M.D. Started 24-Dec-2013 [id number] Tablet Bottle Esomeprazole Magnesium 40 MG Oral Capsule Delayed Release TAKE 1 CAPSULE DAILY. Quantity: 30 Refills: 5 Uday Santana M.D. Started ActiveNystatin [id number] UNIT/GM External Cream APPLY 2-3 TIMES DAILY TO AFFECTED AREA(S). Refills: 0 Uday Santana M.D. Started Active Allergies and Adverse Reactions Name Dates [...] K04.7) Status: Resolved History of diarrhea (V12.79, Z87.19) Status: Resolved History of herpes zoster (V12.09, [...] Pneumo (Pneumovax) Administered on:28-Feb-2006 Influenza Administered on:25-Dec-2008 Family History natural son Name Dates Details [...] Social History Name Dates Details Smoking StatusNever smokerNever smoker Vital Signs Date Test Result Details 09:09 BP Systolic 132 mm[Hg] Status: BP Diastolic 80 mm[Hg] Status: Heart Rate 80 /min Status: Weight 178 lb Status: Body Mass Index Calculated 29.62 kg/m2 Status: Body Surface Area Calculated 1.88 m2 Status: 26-Sep-2014 16:45 BP Systolic 130 mm[Hg] Status: BP Diastolic 80 mm[Hg] Status: Heart Rate 80 /min Status: Weight 170 lb Status: Body Mass Index Calculated 28.29 kg/m2 Status: Body Surface Area Calculated 1.85 m2 Status: Results Date Description Value Details Results not documented Plan of Care Planned Observations Name Dates Details Planned Goals not documented Goal Planned Encounters Appointment; Provider: Jag Jenkins On 09-Jul-2015 15:15 Appointment; Provider: Uday Santana On 09-Jan-2015 10:00 Appointment; Provider: Barry Macdonald On 22-Dec-2010 11:45 [...] 12-Apr-2013 Encounter Diagnosis: Problem not documented 09:30 Appointment; Uday Santana On 07-Feb-2013 Encounter Diagnosis: Problem not documented 09:15 Appointment; Uday Santana On 05-Dec-2012 Encounter Diagnosis: Problem not documented 10:45
--- OUTSIDE RECORDS SUMMARY | 2016-12-20 11:00 | External Medical Summary | Summary of Care ---
:1930 Author Name Bandar Santana M.D. Address Unavailable Unavailable , Care Team Providers Name Role Phone Max Salinas, Bandar Frye Unavailable Unavailable David Epperson M.D. Unavailable Unavailable Uday Santana Unavailable Unavailable [facility] ([place]) Unavailable Unavailable [facility] ([place]) Unavailable Unavailable Unavailable Unavailable Unavailable Functional Status [...] Active Rib pain (786.50, R07.81) Status: Active Ingrowing nail (703.0, L60.0) Status: Active Left knee pain (719.46, M25.562) Status: Active Depression (311, F32.9) Status: Active Shortness of breath (786.05, R06.02) Status: Active Exposure to influenza (V01.79, Z20.828) Status: Active Medications Name Dates Details Cetirizine [...] 13 Intramuscular Suspension on: 09-Jan-2015 Lot #: [id number] Family History natural son Name Dates Details [...] smoker Vital Signs Date Test Result Details 31-May-2016 13:31 BP Systolic 110 mm[Hg] Status: Comments: Location: ; Position: BP Diastolic 68 mm[Hg] Status: Comments: Location: ; Position: Temperature 97.2 f Status: Comments: Method: Heart Rate 92 /min Status: Comments: Location: ; Results Date Description Value Details Results not documented Plan of Care Name Dates Details Planned Observations Planned Goals not documented Planned Encounters Appointment; Provider: Jag Jenkins M.D. On 15:00 Appointment; Provider: Lanie Conn On 14:00 Appointment; Provider: Uday Santana M.D. On 11-Jul-2016 10:00 Interventions Provided Labs/Procedures/ImagingXRay ELBOW-Left; Done: May 09 2016 3:12PMXRay RIBS-Left ; Done: May 09 2016 3:13PMXRay SHOULDER-Left; Done: May 09 2016 3:12PM Instructions Name Dates Details Instructions not documented Encounters Appointment; Nely Pantoja DPM On 27-Apr-2016 Encounter [...] Diagnosis: Problem not documented 15:50 Appointment; Jenny Lopez, PZayAZay On 17-Sep-2015 Encounter Diagnosis: Problem not documented [...] Problem not documented 10:00 Appointment; Jenny Lopez P.AZay On 28-May-2015 Encounter Diagnosis: Problem not documented 13:00 Appointment; Uday Snatana M.D. On 17-Apr-2015 Encounter Diagnosis: Problem not [...] Problem not documented 16:30 Appointment; Jenny Lopez P.AZay On 21-Aug-2014 Encounter Diagnosis: Problem not documented 13:15 Appointment; Jag Jenkins M.D. On 10-Jul-2014 Encounter Diagnosis: Problem not documented 14:30 Appointment; Uday Santana M.D. On 02-Jul-2014 Encounter Diagnosis: Problem not documented 09:00
--- OUTSIDE RECORDS SUMMARY | 2016-12-20 11:00 | External Medical Summary | Summary of Care ---
:1930 Author Name Kimmy Man Address [address], [place] [id number] Care Team Providers Name Role Phone Max Salinas, Bandar Frye Unavailable Unavailable David Epperson M.D. 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 Started 26-Feb-2015 ActiveAspirin 81 MG TABS Refills: 0 Domingo [...] Spinal Diskectomy History of Complete Colonoscopy Completed:19-Mar-2007 XRay SPINE-LUMBAR Ordered:29-Jul-2015 XRay KNEE-Left Ordered:11-Aug-2015 Immunization Name Dates Details Pneumo (Pneumovax) Administered on:17-Feb-2005 Pneumo (Pneumovax) Administered on:28-Feb-2006 Influenza Administered on:25-Dec-2008 Prevnar 13 Intramuscular Suspension Administered on:09-Jan-2015 Lot #: [id number] Family History natural son Name Dates Details [...] smoker Vital Signs Date Test Result Details No Known Vitals to report Results Date Description Value Details Results not documented Plan of Care Planned Observations Name Dates Details Planned Goals not documented Goal Planned Encounters Appointment; Provider: Uday Santana On 11:00 Appointment; Provider: Jag Jenkins On 13:15 Appointment; Provider: Domingo Epperson On 09:30 Appointment; Provider: Jenny Lopez On 17-Sep-2015 13:00 Appointment; Provider: Schedule Radiology On 20-Mar-2015 14:00 Appointment; Provider: Schedule Radiology On 12-Feb-2015 14:20 Appointment; Provider: Schedule Radiology On 12-Feb-2015 14:20 Appointment; Provider: Schedule Radiology On 12-Feb-2015 14:00 Appointment; Provider: Barry Macdonald On 22-Dec-2010 11:45 Appointment; Provider: Bryan Melara On 03-May-2009 08:30 Instructions Instructions not documented Encounters Appointment; Juan Moon On 15-Sep-2015 Encounter Diagnosis: [...] Diagnosis: Problem not documented 09:30 Appointment; Jenny Lpoez On 19-Mar-2014 Encounter Diagnosis: Problem not documented 13:00 Appointment; Uday Santana On 20-Feb-2014 Encounter Diagnosis: Problem not documented 09:00 Appointment; Uday Santana On 18-Dec-2013 Encounter Diagnosis: Problem not documented 10:30 Appointment; Allegra Keating On Encounter Diagnosis: Problem not documented 09:45 Appointment; Uday Santana On 18-Sep-2013 Encounter Diagnosis: Problem not documented 09:45
--- OUTSIDE RECORDS SUMMARY | 2016-12-20 11:00 | External Medical Summary | Summary of Care ---
:1930 Author Name Emilie Romo M.D. Address [address], [place] [id number] Care Team Providers Name Role Phone Max Salinas, Bandar Frye Unavailable Unavailable David Epperson M.D. 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) Status: Active Anxiety (300.00, F41.9) Status: Active Knee pain, left anterior (719.46, M25.562) Status: Active Hypotension (458.9, I95.9) Status: Active Hip pain, acute, right (719.45, M25.551) Status: Active Acute bronchitis (466.0, J20.9) Status: Active Acute frontal sinusitis, recurrence not specified (461.1, J01.10) Status: Active Allergic rhinitis (477.9, J30.9) Status: Active Medications Name Dates Details Cetirizine [...] History of Complete Colonoscopy Completed:19-Mar-2007 XRay SPINE-LUMBAR Ordered:22-Sep-2015 XRay KNEE-Left Ordered:11-Aug-2015 Immunization Name Dates Details Pneumo (Pneumovax) Administered on:17-Feb-2005 Pneumo (Pneumovax) Administered on:28-Feb-2006 Influenza Administered on:25-Dec-2008 Prevnar 13 Intramuscular Suspension Administered on:09-Jan-2015 Lot #: [id number] Family History natural son Name Dates Details [...] smoker Vital Signs Date Test Result Details 22-Sep-2015 10:20 BP Systolic 136 mm[Hg] Status: BP Diastolic 78 mm[Hg] Status: Temperature 97.5 f Status: Heart Rate 72 /min Status: Respiration Rate 18 /min Status: Weight 176.8 lb Status: Body Mass Index Calculated 26.8 kg/m2 Status: Body Surface Area Calculated 1.94 m2 Status: 19-Sep-2015 15:57 BP Systolic 144 mm[Hg] Status: BP Diastolic 76 mm[Hg] Status: Temperature 97.2 f Status: Heart Rate 88 /min Status: O2 SAT 96 % Status: Results Date Description Value Details 22-Sep-2015 11:21 XRay HIP-Right Comments: Exam Date: 09/22/2015 10: 45Dictation Date: 09/22/2015 11:21 X HIP COMP (MIN 2V) RT (Better) 11:22 Xray PELVIS (AP ONLY) Comments: Exam Date: 09/22/2015 11: 04Dictation Date: 09/22/2015 11:22 X PELVIS (AP ONLY) (Better) 11:23 XRay CHEST-PA & LAT Comments: Exam Date: 09/22/2015 10: 44Dictation Date: 09/22/2015 11:23 X CHEST PA & LAT (Better) 12:57 X SPINE L-S COMPLETE (Better) Comments: Exam Date: 09/22/2015 10: 45Dictation Date: 09/22/2015 12:57 Plan of Care Planned Observations Name Dates [...] not documented Encounters Appointment; Uday Santana On 22-Sep-2015 Encounter Diagnosis: [...]
--- OUTSIDE RECORDS SUMMARY | 2016-12-20 11:00 | External Medical Summary ---
:1930 Author Name GENERATED, SYSTEM Care Team Providers Name Role Phone MD JAMEL, JESSICA BAUMAN Primary Care Provider [phone] Reason For Visit Reason for Visit from 03/12/2015 1:48 PM:Pt Stated Reason for Adm : chest/back pain Chief Complaint CHEST PAIN Social History Social History from 03/14/2015 1:38 PM:Tobacco Use? : Never SmokerSocial History from 03/12/2015 1:48 PM:Tobacco Use? : Never Smoker Functional Status Functional Status from 03/14/2015 2:46 PM:# Assists : 1Functional Status from 8:04 AM:LOC : AlertOriented To : Person,Place,Time,EventWeight Bearing Status : FullAssist Level : Partial# Assists : 1Functional Status from 2014 8:08 PM:LOC : AlertOriented To : Person,Place,TimeWeight Bearing Status : FullAssist Level : Partial# Assists : 1Functional Status from 03/13/2015 8:26 AM :LOC : AlertOriented To : Person,Place,TimeWeight Bearing Status : FullAssist Level : Partial# Assists : 1Functional Status from 03/12/2015 8:17 PM:LOC : Resting quietly, eyes closedOriented To : Resting quietly,eyes closedWeight Bearing Status : FullAssist Level : Dependent# Assists : 1Functional Status from 03/12/2015 1:48 PM:LOC : AlertOriented To : Person,Place,Time,EventWeight Bearing Status : FullAssist Level : Partial# Assists : 1 Vital Signs Hospital Vital Signs from 03/14/2015 2:44 PM:Height : 5/4 ft,inTemperature : 97.4 FPulse : 82Respirations : 20BP : 126/58Hospital Vital Signs from 2014 11:04 AM:Height : 5/4 ft,inTemperature : 98.7 FPulse : 73Respirations : 20BP : 151/67Hospital Vital Signs from 03/14/2015 8:04 AM:Heart Rate : 65Hospital Vital Signs from 03/14/2015 6:57 AM:Height : 5/4 ft,inTemperature : 98.0 FPulse : 67Respirations : 18BP : 156/70Hospital Vital Signs from 2014 4:40 AM:Weight : 77.7/ kgHeight : 5/4 ft,inHospital Vital Signs from 2014 10:35 PM:Height : 5/4 ft,inTemperature : 98.7 FPulse : 66Respirations : 20BP : 150/67Hospital Vital Signs from 03/13/2015 8:08 PM:Heart Rate : 61Hospital Vital Signs from 03/13/2015 7:22 PM:Height : 5/4 ft,inTemperature : 99.0 FPulse : 61Respirations : 20BP : 140/65Hospital Vital Signs from 2014 3:09 PM:Height : 5/4 ft,inTemperature : 98.0 FPulse : 70Respirations : 20BP : 146/67Hospital Vital Signs from 03/13/2015 9:06 AM:Height : 5/4 ft, inHospital Vital Signs from 03/13/2015 8:26 AM:Heart Rate : 70Hospital Vital Signs from 03/13/2015 7:23 AM:Height : 5/4 ft,inTemperature : 98.2 FPulse : 72Respirations : 18BP : 141/74Hospital Vital Signs from 03/13/2015 2:58 AM: Weight : 79.0/ kgHeight : 5/4 ft,inTemperature : 97.2 FPulse : 68Respirations : 20BP : 145/64Hospital Vital Signs from 03/12/2015 10:51 PM:Height : 5/4 ft, inTemperature : 97.2 FPulse : 66Respirations : 20BP : 173/99Hospital Vital Signs from 03/12/2015 8:17 PM:Heart Rate : 62Hospital Vital Signs from 2014 6:47 PM:Height : 5/4 ft,inTemperature : 98.7 FPulse : 70Respirations : 20BP : 137/64Hospital Vital Signs from 03/12/2015 4:06 PM:Heart Rate : 69Hospital Vital Signs from 03/12/2015 3:46 PM:Height : 5/4 ft,inTemperature : 98.6 FPulse : 73Respirations : 20BP : 131/60Hospital Vital Signs from 2014 1:48 PM:Weight : 77.1/ kgHeight : 5/4 ft,inHospital Vital Signs from 2014 1:00 PM:Weight : 77.1/ kgHeight : 5/4 ft,inTemperature : 97.5 FPulse : 75Respirations : 20BP : 158/64 Results Chemistry from 03/13/2015 6:47 [id number] MMOL/L (136-145 MMOL/L) POTASSIUM4.9 MMOL/L (3.5-5.1 MMOL/L) VCHMFAMB967 MMOL/L H (98-107 MMOL/L) AEV955.0 MMOL/L (21.0-32.0 MMOL/L) *ANION GAP8.0 MMOL/L (8.0-16.0 MMOL/L) BUN20 MG/DL H (7-18 MG/DL) CREATININE1.00 MG/DL (0.55-1.02 MG/DL) *BUN/CREATININE RATIO20.0 H (9.1-17.0 ) JVFBGHJ12 MG/DL (65-99 MG/DL) *GFR EST NON AFR GIGZPURR94 ML/MIN *GFRA EST AFR AMER59 ML/MIN CALCIUM8.8 MG/DL (8.5-10.1 MG/DL) EGCOUQXVRHN435 MG/DL (50-199 MG/DL) MGMVKXRNRWCAP23 MG/DL (0-149 MG/DL) HDL ELQESBAEDVV24 MG/DL (40-60 MG/DL) *LDL (CALCULATED) CHOL43 MG/DL (0-99 MG/DL)Chemistry from 03/13/2015 12:10 AMTROPONIN-I<0.04 (SEE BELOW )Chemistry from 03/12/2015 8:10 PMTROPONIN-I< 0.04 (SEE BELOW )Hematology from 03/13/2015 6:47 AMWBC10.4 X10e3/UL (3.6-11.2 X10e3/UL) RBC3.95 X10e6/UL (3.63-4.92 X10e6/UL) XXBEPOQNCN19.8 G/DL (11.0-14.3 G/DL) JPQTUUPYEF62.3 % (31.2-41.9 %) *MCV92.0 FL (79.0-98.0 FL) *MCH29.9 PG (27.0-33.0 PG) *MCHC32.5 G/DL (32.0-36.0 G/DL) *RDW13.2 % (12.3-17.0 %) DSPDINCL287 X10e3/UL (159-386 X10e3/UL) *MPV7.7 FL (7.4-10.4 FL) AUTOMATED DIFFPERFORMED SEGS69.5 % *EJEQKFFMRXI29.3 % *MONOCYTES6.3 % *EOSINOPHILS2.8 % *BASOPHILS1.1 % *ABSOLUTE NEUTROPHILS7.20 X10e3/UL (1.80-7.80 X10e3/UL) *ABSOLUTE LYMPHOCYTES2.10 X10e3/UL (1.00-3.00 X10e3/UL) *ABSOLUTE MONOCYTES0.70 X10e3/UL (0.30-1.00 X10e3/UL) *ABSOLUTE EOSINOPHILS0.30 X10e3/UL (0.00-0.50 X10e3/UL) *ABSOLUTE BASOPHILS0.10 X10e3/UL (0.00-0.20 X10e3/UL)Nuclear Medicine from 03/13 11:00 AMMYOCARDIAL PERFUSION PHARMACOLOGICALHistory: Chest Pain. Technique: The patient was given 10 millicuries of Tc99m Myoview and spect images were obtained of the heart. The patient was then stressed with 0.4mg intravenous lexiscan per protocol and given a second injection of 30 millicuries of Tc99m Myoview. Gated spect images were then obtained of the heart. Priors: None. Findings: When comparing the stress and rest images, there is no evidence of chronic infrct or stress induced ischemia.Left ventricular ejection fraction measures 81%. Impression: No evidence of chronic infarct or stress induced ischemia Left ventricular ejection fraction of 81%. Electronically signed by: Adonay Coon MD Dictated: 03/14/2015 11:37 Problems Encounter Diagnosis Chest Pain Status:Active.Coronary Arteriosclerosis Status:Active.Fall Risk Status:Active.Infection Risk Status:Active.Mobility Impairment Status: Active.Skin Integrity Impairment Risk Status:Active. Encounters Encounter Diagnosis Chest Pain Status:Active.Coronary Arteriosclerosis Status:Active.Fall Risk Status:Active.Infection Risk Status:Active.Mobility Impairment Status: Active.Skin Integrity Impairment Risk Status:Active. Plan of Care Follow-up Appointments from 03/14/2015 1:38 PM:#1 Office appointment: : Dr Bowling in 3-6 days#2 Office appointment: : Dr Jenkins in 1 monthTreatment Plan from 03/14/2015 1:13 PM:Care Management Note : PT to return to [facility] today. SUZY called nurse, Abilio, at [facility]. He would like discharge about 2:30. SUZY faxed orders and pt prescriptions to Abilio at [facility]. Informed hospital RN and pt of plan for discharge. Pt verbalized she was happy to be going back to [facility].Treatment Plan from 03/13/2015 7:23 AM:Care Management Note : Patient was admitted as observation d/t chest pain. Troponin's have been negative, chest xray, CTA of chest, and CT of spine all were negative. POC is to consult cardio , place on tele, monitor orthostatics, and complete a stress test. At this point in time patient is appropriate for observation, will continue to follow. Procedures Completed , on 12/22/2010 12:00 AMCompleted , on 12/22/2010 12:00 AMCompleted , on 12/22/2010 12:00 AMCompleted , on 05/02/2009 12:00 AM Immunizations No immunizations administered or ordered. Hospital Course Hospital Discharge Instructions How to care for yourself at home from 03/14/2015 1:38 PM:Discharge Activity : Activity as toleratedDischarge Diet : Modification as given by physicianDischarge Diet: : Resume previous dietCall your doctor if: : Fever over 101 F or severe chills,Chest pain or other unexplained symptoms,Tingling or numbness develops,A sudden increase or decrease in weight,You have persistent or worsening symptoms,If you have Heart Failure and you gain 3 pounds within 1 week or your symptoms worsen. (Weigh at home tomorrow morning) Specific Discharge Teaching Instructions provided: : NoDischarge on Warfarin : No Allergies, Adverse Reactions, Alerts raw pineapple (as Food allergen) causes Too acidic.cantalope (as Food allergen) causes Hives and eyes swell shut.Codeine causes Rash.Morphine causes Moderate confusion.Sulfa (Sulfonamide Antibiotics) causes Moderate Chills.Penicillins causes Moderate Rash.No Latex Allergy.No IV Contrast Allergy. Medication It is the responsibility of the patient or patient enrollment representative to confirm the list of medicationswith either the patient's personal care provider or the patient's follow-up care provider to ensure the patient has an appropriate list of medications to take at home. Preliminary list - medication reconciliation not completed.Discharge medicationsNew medicationspredniSONE 20 mg Tablet, Ordered By: JESSICA MCCULLOUGH MD Directions: 3 tablets oral daily with breakfast Additional Instructions: taper as written baclofen 10 mg Tablet, Ordered By: JESSICA MCCULLOUGH MD Directions: 1 tablet oral three times a day PRN back pain or spasm Continued medicationsalendronate 70 mg Tablet, Ordered By: JESSICA MCCULLOUGH MD Directions: 1 tablet oral every Monday aspirin (Aspirin Low Dose) 81 mg tablet,delayed release (DR/EC), Ordered By: JESSICA MCCULLOUGH MD Directions: 1 tablet oral daily atorvastatin 20 mg Tablet, Ordered By: JESSICA MCCULLOUGH MD Directions: 1 tablet oral daily at bedtime cetirizine 10 mg Tablet, Ordered By: JESSICA MCCULLOUGH MD Directions: 1 tablet oral daily esomeprazole magnesium (NexIUM) 40 mg capsule,delayed release(DR/EC), Ordered By : JESSICA MCCULLOUGH MD Directions: 1 capsule oral daily meloxicam 7.5 mg Tablet, Ordered By: JESSICA MCCULLOUGH MD Directions: 1 tablet oral daily midodrine 5 mg Tablet, Ordered By: JESSICA MCCULLOUGH MD Directions: 1 tablet oral twice a day sertraline 50 mg Tablet, Ordered By: JESSICA MCCULLOUGH MD Directions: 1 tablet oral daily furosemide 40 mg Tablet, Ordered By: JESSICA MCCULLOUGH MD Directions: 1 tablet oral daily HYDROcodone-acetaminophen 5 mg-325 mg Tablet, Ordered By: JESSICA MCCULLOUGH MD Directions: 1 tablet oral every six hours PRN pain latanoprost 0.005 % Drops, Ordered By: JESSICA MCCULLOUGH MD Directions: 1 drop ophthalmic, both eyes daily at bedtime ascorbic acid (Vitamin C) 500 mg Tablet, Ordered By: JESSICA MCCULLOUGH MD Directions: 2 tablet oral daily cholecalciferol (vitamin D3) (Vitamin D3) 1,000 unit Tablet, Ordered By: JESSICA MCCULLOUGH MD Directions: 1 tablet oral daily Stopped medicationsNone
--- OUTSIDE RECORDS SUMMARY | 2016-12-20 11:00 | External Medical Summary | Summary of Care ---
:1930 Author Name David Epperson M.D. Address [address], [place] [id number] Care Team Providers Name Role Phone Max Salinas, Bandar Frye Unavailable Unavailable David Epperson M.D. Unavailable Unavailable Uday Santana Primary Care Provider Unavailable [facility] ([place]) Referring Provider Unavailable Unavailable Unavailable Unavailable [...] (780.2, R55) Status: Active PTCA Status: Active Hyperlipidemia (272.4, E78.5) Status: Active Ingrown toenail (703.0, L60.0) Status: [...] Pes anserine bursitis (726.61, M70.50) Status: Active Thoracic back pain (724.1, M54.6) Status: Active CAD (coronary atherosclerotic disease) (414.00, I25.10) Status: Active Depression (311, F32.9) Status: Active Diastolic dysfunction (429.9, I51.9) Status: Active Hypercholesterolemia (272.0, E78.0) Status: Active Gastroesophageal reflux disease without esophagitis (530.81, K21.9) Status: Active 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, Z96.651) Status: Active Right knee pain (719.46, M25.561) Status: Active Chest pain (786.50, R07.9) Status: Active Acute upper back pain (724.5, M54.9) Status: Active Pulmonary hypertension, mild (416.8, I27.2) Status: Active Medications Name Dates Details Cetirizine HCl - 10 MG Oral Tablet TAKE 1 TABLET BY MOUTH EVERY DAY FOR ALLERGY Quantity: 31 Refills: 0 Uday Santana M.D. Started ActiveVitamin C 500 [...] 30 Refills: 0 Uday Santana M.D. Started ActiveHydrocortisone 1 % [...] Refills: 0 Domingo Epperson M.D. Started 10-Mar-2015 ActivePredniSONE 20 MG Oral Tablet TAKE 3 TABLET with breakfast Refills: 0 Uday Santana M.D. Started 18-Mar-2015 ActiveBaclofen 10 MG Oral Tablet TAKE 1 [...] hypertension (V12.59, Z86.79) Status: Resolved History of Pleural effusion, left (511.9, J90) Status: Resolved History of urethritis (V13.09, Z87.448) [...] 1251 Ordered:16-Mar-2015 Glucose, Body Fluid 1134 Ordered:16-Mar-2015 LDH, Body Fluid 1131 Ordered:16-Mar-2015 BODY FLUID CELL COUNT 7629 Ordered:16-Mar-2015 Triglycerides, Body Fluid 1257 Ordered:16-Mar-2015 Ph Body Fluid 1128 Ordered:16-Mar-2015 Total Protein, Body Fluid 1152 Ordered:16-Mar-2015 FUNGUS CULTURE (OTHER SOURCE) [id number] Ordered:16-Mar-2015 MYCOBACTERIA ( AFB) CULTURE 5220 Ordered:16-Mar-2015 FLUID CULTURE (Aerobic) Ordered:16-Mar-2015 GLUCOSE 1100 Ordered:16-Mar-2015 TOTAL PROTEIN 1150 Ordered:16-Mar-2015 LDH 1140 Ordered:16-Mar-2015 ULTRASOUND THORACENTESIS SONO Ordered:10-Mar-2015 Immunization Name Dates Details Pneumo (Pneumovax) Administered on:17-Feb-2005 Pneumo (Pneumovax) Administered on:28-Feb-2006 Influenza Administered on:25-Dec-2008 Prevnar 13 Intramuscular Suspension Administered on:09-Jan-2015 Lot #: [id number] Family History natural son Name Dates Details [...] smoker Vital Signs Date Test Result Details 02-Apr-2015 13:44 BP Systolic 120 mm[Hg] Status: BP Diastolic 84 mm[Hg] Status: Heart Rate 86 /min Status: O2 SAT 97 % Status: 18-Mar-2015 15:50 BP Systolic 122 mm[Hg] Status: BP Diastolic 60 mm[Hg] Status: Temperature 97.7 f Status: Heart Rate 90 /min Status: O2 SAT 95 % Status: 10-Mar-2015 12:59 BP Systolic 122 mm[Hg] Status: BP Diastolic 68 mm[Hg] Status: Heart Rate 73 /min Status: Height 68.1 in Status: Weight 169.5 lb Status: O2 SAT 97 % Status: Body Mass Index Calculated 25.7 kg/m2 Status: Body Surface Area Calculated 1.91 m2 Status: Results Date Description Value Details 10-Mar-2015 11:07 CBC w/ Auto Diff 7150 [...] Range: >60 low threshold) EST GFR, NON-AFR MONEGASQUE 36 ml/min (Below Range: >60 low threshold) Comments: EST GFR is reported in ml/min per 1.73 m2 of body surface area. For -Lithuanian, please multiple result by 1.2.----- GLUCOSE 80 [...] infants and children <2 years of age----- 20-Mar-2015 14:11 XRay CHEST-PA & LAT Comments: Exam Date: 03/20/2015 13:37Dictation Date: 03/20/2015 14:11 X CHEST PA & LAT (Better) 14:32 CT CHEST WITHOUT IV Comments: Exam Date: 03/20/2015 14:15Dictation Date: 03/20/2015 14:32 CONTRAST XC CHEST (Better) Plan of Care Planned Observations Name Dates Details Planned Goals not documented Goal Planned Encounters Appointment; Provider: Domingo Epperson On 09:30 Appointment; Provider: Jag Jenkins On 09-Jul-2015 15:15 Appointment; Provider: Uday Santana On 17-Apr-2015 09:30 Appointment; Provider: Ciro Lewis On 13-Apr-2015 11:30 Appointment; Provider: Schedule [facility]iology On 20-Mar-2015 14:00 Appointment; Provider: [facility] On 12-Feb-2015 14:20 Appointment; Provider: [facility] On 12-Feb-2015 14:20 Appointment; Provider: [facility] On 12-Feb-2015 14:00 Appointment; Provider: Barry Macdonald On 22-Dec-2010 11:45 Appointment; Provider: Bryan Melara On 03-May-2009 08:30 Instructions Instructions not documented Encounters Appointment; Domingo Epperson On 02-Apr-2015 Encounter Diagnosis: [...] Diagnosis: Problem not documented 09:45 Appointment; Jag Jnekins On 11-Jul-2013 Encounter Diagnosis: Problem not documented 14:30 Appointment; Uday Santana On 03-Jun-2013 Encounter Diagnosis: Problem not documented 14:45 Appointment; Uday Santana On 14-May-2013 Encounter Diagnosis: Problem not documented 10:45 Appointment; Uday Santana On 12-Apr-2013 Encounter Diagnosis: Problem not documented 09:30
--- OUTSIDE RECORDS SUMMARY | 2016-12-20 11:00 | External Medical Summary | Summary of Care ---
:1930 Author Name Bandar Santana M.D. Address [address], [place] [id number] Care Team Providers Name Role Phone Bandar Santana M.D. 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 Refills: 0 Started 17-Feb-2015 ActiveVitamin D3 2000 UNIT Oral Tablet TAKE ONE TAB PO DAILY Refills: 0 Uday Santana M.D. Started 20-Feb-2015 ActiveAlendronate Sodium 70 MG Oral Tablet TAKE 1 TABLET 30-60 MINUTES PRIOR TO BREAKFAST ON AN EMPTY STOMACH. DO NOT LIE DOWN AFTER TAKING MEDICATION. Refills: 0 Uday Santana M.D. Started 20-Feb-2015 Active Allergies and Adverse Reactions Name Dates [...] ORTHO KNEE LEFT (3 VIEWS ONLY) Ordered:20-Jan-2015 Immunization Name Dates Details Pneumo (Pneumovax) Administered on:17-Feb-2005 Pneumo (Pneumovax) Administered on:28-Feb-2006 Influenza Administered on:25-Dec-2008 Prevnar 13 Intramuscular Suspension Administered on:09-Jan-2015 Lot #: [id number] Family History natural son Name Dates Details [...] smoker Vital Signs Date Test Result Details 20-Feb-2015 15:08 BP Systolic 140 mm[Hg] Status: BP Diastolic 60 mm[Hg] Status: Temperature 97 f Status: Heart Rate 75 /min Status: Respiration Rate 14 /min Status: 27-Jan-2015 13:46 BP Systolic 134 mm[Hg] Status: BP Diastolic 82 mm[Hg] Status: Heart Rate 80 /min Status: Weight 170 lb Status: O2 SAT 94 % Status: Body Mass Index Calculated 28.29 kg/m2 Status: Body Surface Area Calculated 1.85 m2 Status: Results Date Description Value Details 27-Jan-2015 14:08 XRay CHEST-PA & LAT Comments: Exam Date: 01/27/2015 13:08Dictation Date: 01/27/2015 14:08 X CHEST PA & LAT ([facility]) 12-Feb-2015 15:03 MAMMOGRAM-SCREENING Comments: Exam Date: 02/12/2015 13: 57Dictation Date: 02/12/2015 15:03 XM SCREENING (Better) 15:03 DEXA Comments: Exam Date: 02/12/2015 13:56Dictation Date: 2014 15:03 XD DEXA (Better) Plan of Care Planned Observations Name Dates Details Planned Goals not documented Goal Planned Encounters Appointment; Provider: Jag Jenkins On 09-Jul-2015 15:15 Appointment; Provider: Uday Santana On 17-Apr-2015 09:30 Appointment; Provider: Domingo Epperson On 10-Mar-2015 13:00 Appointment; Provider: Juan Moon On 03-Mar-2015 09:45 Appointment; Provider: [facility] On 12-Feb-2015 14:20 Appointment; Provider: [facility] On 12-Feb-2015 14:20 Appointment; Provider: [facility] On 12-Feb-2015 14:00 Appointment; Provider: Barry Macdonald On 22-Dec-2010 11:45 Appointment; Provider: Bryan Melara On 03-May-2009 08:30 Instructions Instructions not documented Encounters Appointment; Jenny Lopez On 20-Feb-2015 Encounter Diagnosis: [...]
--- OUTSIDE RECORDS SUMMARY | 2016-12-20 11:01 | External Medical Summary | Summary of Care ---
:1930 Author Name Allegra Estrada APRN Address [address] Unavailable [place], [place] [id number] Care Team Providers Name Role Phone Allegra Estrada APRN Unavailable Unavailable Max Salinas, Bandar Frye Unavailable Unavailable Zeenat Salinas, David Lane Unavailable Unavailable Uday Santana Unavailable Unavailable [facility]) Unavailable Unavailable [facility]) Unavailable Unavailable Unavailable Unavailable Unavailable Functional Status [...] FOR ALLERGY Quantity: 31 Refills: 3 Max Dean.Theodora., Uday Portillo Start Active Vitamin C 500 MG Oral Tablet take 2 tabs daily Refills: 0 Max Dean.Uday Ardon Start 12-Sep-2011 Active Latanoprost 0.005 % Ophthalmic Solution INSTILL 1 DROP IN BOTH EYES AT BEDTIME. Refills: 0 Max Dean.Uday Ardon Start 04-Sep-2013 Active Hydrocodone-Acetaminophen 5-325 MG Oral Tablet take 1/2-1 tab po every 4-6 hours PRN Quantity: 15 Refills: 0 Max Dean.Theodora.Uday Start 04-Sep-2013 Active Meloxicam 7.5 MG Oral Tablet TAKE 1 TABLET DAILY FOR ARTHRITIS Quantity: 31 Refills: 0 Max Dean.Uday Ardon Start Active Esomeprazole Magnesium 40 MG Oral Capsule Delayed Release TAKE 1 CAPSULE DAILY. Quantity: 31 Refills: 5 Max Dean.Theodora., Uday Portillo Start Active Vitamin D3 2000 UNIT Oral Tablet TAKE ONE TAB PO DAILY Refills: 0 Max Dean.Reva, Uday Portillo Start 20-Feb-2015 Active Atorvastatin Calcium 20 MG Oral Tablet TAKE 1 TABLET DAILY AT BEDTIME Quantity: 31 Refills: 0 Max M.Reva, Uday Portillo Start 26-Feb-2015 Active Aspirin 81 MG TABS Refills: 0 Zeenat SalinasDomingo Start 10-Mar-2015 Active Mapap 325 MG Oral Tablet TAKE 1 TO 2 TABLETS EVERY 4 HOURS NEEDED Refills: 0 Uday Santana M.D. Start 17-Jun-2015 Active Bisacodyl 10 MG Rectal Suppository INSERT 1 SUPPOSITORY RECTALLY ONCE DAILY. Refills: 0 Uday Santana M.D. Start 12-Jan-2016 Active Mucinex 600 MG Oral Tablet Extended Release 12 Hour TAKE 1 TABLET TWICE DAILY NEEDED. Refills: 0 Uday Santana M.D. Start 12-Jan-2016 Active Triamcinolone Acetonide 0.1 % External Cream APPLY THIN FILM TO AFFECTED AREA(S) ONCE DAILY. Refills: 0 Uday Santana M.D. Start 12-Jan-2016 Active Milk of Magnesia 1200 MG/15ML Oral Suspension USE DIRECTED. Refills: 0 Uday Santana M.D. Start 08-Feb-2016 Active Tylenol 325 MG Oral [...] NEEDED FOR NAUSEA/VOMITTING Quantity: 20 Refills: 0 Uday Santana M.D. Start 12-Apr-2016 Active Allergies and Adverse Reactions [...] 13 Intramuscular Suspension on: 09-Jan-2015 Lot #: [id number] Family History natural son Name Dates Details [...] Body Surface Area Calculated 1.85 m2 Status: 31-May-2016 13:31 BP Systolic 110 mm[Hg] Status: [...] Provider: Uday Santana M.D. On 11-Jul-2016 10:00 Instructions Name Dates Details Instructions not documented Encounters Appointment; Uday Santana M.D. On 31-May-2016 Encounter [...] Diagnosis: Problem not documented 09:45 Appointment; Jenny Lopez, P.AZay On 20-Feb-2015 Encounter Diagnosis: Problem not documented [...] Diagnosis: Problem not documented 16:30 Appointment; Jenny Lopez, P.AZay On 21-Aug-2014 Encounter Diagnosis: Problem not documented 13:15 Appointment; Jag Jenkins M.D. On 10-Jul-2014 Encounter Diagnosis: Problem not documented 14:30 Appointment; Uday Santana M.D. On 02-Jul-2014 Encounter Diagnosis: Problem not documented 09:00
--- OUTSIDE RECORDS SUMMARY | 2016-12-20 11:01 | External Medical Summary | Summary of Care ---
:1930 Author Name Bandar Santana M.D. Address Unavailable Unavailable , Care Team Providers Name Role Phone Max Salinas, Bandar Frye Unavailable Unavailable David Epperson M.D. Unavailable Unavailable Uday Santana Unavailable Unavailable [facility] ([place]) Un[place] Unavailable [facility] [place]) Unavailable Unavailable Unavailable Unavailable Unavailable Functional Status [...] Left knee pain (719.46, M25.562) Status: Active Hypotension (458.9, I95.9) [...] Active Chest pain (786.50, R07.9) Status: Active Ingrowing nail (703.0, L60.0) Status: Active Great toe pain, left (729.5, M79.675) Status: Active Left elbow pain (719.42, M25.522) Status: Active Left shoulder pain (719.41, M25.512) Status: Active Rib pain (786.50, R07.81) Status: Active Medications Name Dates Details Latanoprost 0.005 % Ophthalmic Solution INSTILL 1 DROP IN BOTH EYES AT BEDTIME. Refills: 0 Uday Santana M.D. Start 04-Sep-2013 Active Cetirizine HCl - 10 MG Oral Tablet TAKE 1 TABLET BY MOUTH EVERY DAY FOR ALLERGY Quantity: 31 Refills: 3 Uday Santana M.D. Start Active Esomeprazole Magnesium 40 MG Oral Capsule Delayed Release TAKE 1 CAPSULE DAILY. Quantity: 31 Refills: 5 Uday Santana M.D. Start Active Vitamin C 500 MG Oral Tablet take 2 tabs daily Refills: 0 Uday Santana M.D. Start 12-Sep-2011 Active Meloxicam 7.5 MG Oral Tablet TAKE 1 TABLET DAILY FOR ARTHRITIS Quantity: 31 Refills: 0 dUay Santana M.D. Start Active Hydrocodone-Acetaminophen 5-325 MG Oral Tablet take 1/2-1 tab po every 4-6 hours PRN Quantity: 15 Refills: 0 Uday Santana M.D. Start 04-Sep-2013 Active Vitamin D3 2000 UNIT Oral Tablet TAKE ONE TAB PO DAILY Refills: 0 Uday Santana M.D. Start 20-Feb-2015 Active Aspirin 81 MG TABS Refills: 0 Domingo Epperson M.D. Start 10-Mar-2015 Active Mapap 325 MG Oral Tablet TAKE 1 TO 2 TABLETS EVERY 4 HOURS NEEDED Refills: 0 Uday Santana M.D. Start 17-Jun-2015 Active Atorvastatin Calcium 20 MG Oral Tablet TAKE 1 TABLET DAILY AT BEDTIME Quantity: 31 Refills: 0 Max Salinas, Uday Deckery Start 26-Feb-2015 Active Bisacodyl 10 MG Rectal Suppository INSERT 1 SUPPOSITORY RECTALLY ONCE DAILY. Refills: 0 Max Salinas, Uday Portillo Start 12-Jan-2016 Active Mucinex 600 MG Oral Tablet Extended Release 12 Hour TAKE 1 TABLET TWICE DAILY NEEDED. Refills: 0 Max Salinas, Uday Portillo Start 12-Jan-2016 Active Triamcinolone Acetonide 0.1 % External Cream APPLY THIN FILM TO AFFECTED AREA(S) ONCE DAILY. Refills: 0 Max Salinas, Uday Portillo Start 12-Jan-2016 Active Milk of Magnesia 1200 MG/15ML Oral Suspension USE DIRECTED. Refills: 0 Max Salinas, Uday Portillo Start 08-Feb-2016 Active Tylenol 325 MG Oral Tablet TAKE 1 TO 2 TABLETS EVERY 4 HOURS NEEDED Refills: 0 Max Salinas, Uday Portillo Start 08-Feb-2016 Active Pepto-Bismol 262 MG Oral Tablet Chewable USE DIRECTED. Refills: 0 Max Salinas, Uday Portillo Start 08-Feb-2016 Active Maalox Max 400-400-40 MG/5ML Oral Suspension USE DIRECTED. Refills: 0 Max Salinas, Uday Portillo Start 08-Feb-2016 Active Mylanta 200-200-20 MG/5ML Oral Suspension USE DIRECTED. Refills: 0 Uday Santana M.D. Start 08-Feb-2016 Active Midodrine HCl - 5 MG Oral Tablet take 1 tablet two times daily Quantity: 60 Refills: 5 Start 16-Feb-2016 Active ZyrTEC Allergy 10 MG Oral Capsule TAKE ONCE DAILY NEEDED FOR ALLERGIES Refills: 0 Max Salinas, Uday Bandar Start 12-Apr-2016 Active Ondansetron 4 MG Oral [...] of Cath Stent Placement History of Diagnostic Completed: 03-May-2009 Esophagogastroduodenoscopy History of Cystoscopy With Biopsy Completed: 22-Dec-2010 History of Cystoscopy With Ureteral Completed: 22-Dec-2010 Catheterization History of Cath Stent Placement History of Spinal Diskectomy History of Complete Colonoscopy Completed: 19-Mar-2007 History of Appendectomy History of Cholecystectomy CP Echo Ordered: 13-Apr-2016 THYROID STIM. HORMONE 3602 Ordered: 12-Apr-2016 LIPID PROFILE 1184 Ordered: 12-Apr-2016 Comprehensive Metabolic Panel 1212 Ordered: 12-Apr-2016 CBC w/ Auto Diff 7150 Ordered: 12-Apr-2016 CT CTA CHEST Ordered: 05-Apr-2016 Immunization Name Dates Details Pneumo (Pneumovax) on: 17-Feb-2005 Pneumo (Pneumovax) on: 28-Feb-2006 Influenza on: 25-Dec-2008 Prevnar 13 Intramuscular Suspension on: 09-Jan-2015 Lot #: [id number] Family History natural son Name Dates Details [...] smoker Vital Signs Date Test Result Details 09-May-2016 13:24 BP Systolic 114 mm[Hg] Status: Comments: Location: ; Position: BP Diastolic 70 mm[Hg] Status: Comments: Location: ; Position: Temperature 97.7 f Status: Comments: Method: Heart Rate 88 /min Status: Comments: Location: ; Results Date Description Value Details 09-May-2016 15:12 XRay ELBOW-Left Comments: Exam Date: 05/09/2016 14: 25Dictation Date: 05/09/2016 15:12 X ELBOW COMP (MIN 3V) LT 15:13 XRay RIBS-Left Comments: Exam Date: 05/09/2016 14:24Dictation Date: 12/2016 15:13 X RIBS UNILATERAL LT 15:12 XRay SHOULDER-Left Comments: Exam Date: 05/09/2016 14:25Dictation Date : 05/09/2016 15:12 X SHOULDER COMP (MIN 2V) LT Plan of Care Name Dates Details Planned Observations Planned Goals not documented Planned Encounters Appointment; Provider: Jag Jenkins M.D. On 15:00 Appointment; Provider: Lanie Conn On 14:00 Appointment; Provider: Uday Santana M.D. On 11-Jul-2016 10:00 Interventions Provided Medication ChangesHydrocodone-Acetaminophen 5-325 MG Oral Tablet - Renew Instructions Name Dates Details Instructions not documented Encounters Appointment; Uday Santana M.D. On 09-May-2016 Encounter [...] Diagnosis: Problem not documented 10:00 Appointment; Jenny Lopez, P.AZay On 28-May-2015 Encounter Diagnosis: Problem not [...] Problem not documented 09:45 Appointment; Jenny Lopez P.AZay On 20-Feb-2015 Encounter Diagnosis: Problem not [...] Problem not documented 09:00 Appointment; Uday Santana M.D. On 28-May-2014 Encounter Diagnosis: Problem not documented 09:30
--- OUTSIDE RECORDS SUMMARY | 2016-12-20 11:01 | External Medical Summary | Summary of Care ---
:1930 Author Name Bandar Santana M.D. Address Unavailable Unavailable , Care Team Providers Name Role Phone Max Salinas, Bandar Frye Unavailable Unavailable David Epperson M.D. Unavailable Unavailable Uday Santana Unavailable Unavailable [facility] ([place]) Unavailable Unavailable 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) Status: Active Anxiety (300.00, F41.9) Status: Active Pain, abdominal, epigastric (789.06, R10.13) Status: Active Nausea and/or vomiting (787.01, R11.2) Status: Active Hip pain, acute, right (719.45, M25.551) Status: Active Hip pain, left (719.45, M25.552) Status: Active Low back pain (724.2, M54.5) Status: Active 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, 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) Status: Active Arthrofibrosis of knee joint, 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, 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) Status: Active Dizziness (780.4, R42) Status: Active UTI (urinary tract infection) (599.0, N39.0) Status: Active Elevated d-dimer (790.92, R79.89) Status: Active Great toe pain, left (729.5, M79.675) Status: Active Left elbow pain (719.42, M25.522) Status: Active Left shoulder pain (719.41, M25.512) Status: Active Rib pain (786.50, R07.81) Status: Active Shortness of breath (786.05, R06.02) Status: Active Left knee pain (719.46, M25.562) Status: Active Exposure to influenza (V01.79, Z20.828) Status: Active Ingrowing nail (703.0, L60.0) Status: Active Constipation (564.00, K59.00) Status: Active Anemia (285.9, D64.9) Status: Active Hyperlipidemia (272.4, E78.5) Status: Active CAD (coronary atherosclerotic disease) (414.00, I25.10) Status: Active Abnormal weight loss (783.21, R63.4) Status: Active Visit for periodic health examination (V70.0, Z00.00) Status: Active Breast lump on left side at 12 o'clock position (611.72, N63) Status: Active Hypotension (458.9, I95.9) Status: Active Depression (311, F32.9) Status: Active Medications Name Dates Details Cetirizine HCl - 10 MG Oral Tablet TAKE 1 TABLET BY MOUTH EVERY DAY FOR ALLERGY Quantity: 31 Refills: 3 Max Dean.Uday Ardon Start Active Sertraline HCl - 50 MG Oral Tablet Take one tablet by mouth daily Quantity: 31 Refills: 2 Max Dean.Reva, Uday Portillo Start Active Vitamin C 500 MG Oral Tablet Take two tablets by mouth every morning Quantity: 62 Refills: 0 Uday Santana M.D. Start 04-Aug-2016 Active Latanoprost 0.005 % Ophthalmic Solution INSTILL ONE DROP IN EACH EYE AT BEDTIME Quantity: 2.5 Refills: 0 Uday Santana M.D. Start 19-Aug-2016 Active Hydrocodone-Acetaminophen 5-325 MG Oral Tablet take 1/2 po every 4 hours PRN Quantity: 15 Refills: 0 Uday Santana M.D. Start 04-Sep-2013 Active Meloxicam 7.5 MG Oral Tablet TAKE ONE TABLET BY MOUTH EVERY MORNING Quantity: 31 Refills: 0 Uday Santana M.D. Start 04-Aug-2016 Active Esomeprazole Magnesium 40 MG Oral Capsule Delayed Release TAKE 1 CAPSULE DAILY. Quantity: 31 Refills: 5 Uday Santana M.D. Start Active Vitamin D3 2000 UNIT Oral Tablet TAKE ONE TAB PO DAILY Refills: 0 Uday Santana M.D. Start 20-Feb-2015 Active Atorvastatin Calcium 20 MG Oral Tablet TAKE ONE TABLET BY MOUTH EVERY NIGHT AT BEDTIME Quantity: 31 Refills: 0 Uday Santana M.D. Start 04-Aug-2016 Active Aspirin 81 MG TABS Refills: 0 Domingo Epperson M.D. Start 10-Mar-2015 Active Mapap 325 MG Oral Tablet TAKE 1 TO 2 TABLETS EVERY 4 HOURS NEEDED Refills: 0 Max Salinas, Uday Portillo Start 17-Jun-2015 Active Bisacodyl 10 MG Rectal [...] M.D. Start 08-Feb-2016 Active Mylanta 200-200-20 MG/5ML SUSP USE DIRECTED. Refills: 0 Uday Santana M.D. [...] 0 Uday Santana M.D. Start 12-Apr-2016 Active Vitamin D3 1000 UNIT Oral Tablet TAKE ONE TABLET BY MOUTH EVERY MORNING Quantity: 31 Refills: 0 Uday Santana M.D. Start 04-Aug-2016 Active Aspir-Low 81 MG Oral Tablet Delayed Release TAKE ONE TABLET BY MOUTH EVERY MORNING Quantity: 31 Refills: 0 Max M.D., Uday Portillo Start 04-Aug-2016 Active Hydrocodone-Acetaminophen 5-325 MG Oral Tablet TAKE ONE TABLET(S) BY MOUTH DAILY AT BEDTIME FOR PAIN Quantity: 30 Refills: 0 Max M.D., Uday Portillo Start 23-Aug-2016 Active Allergies and Adverse Reactions Name Dates Details Codeine Derivatives (Allergy) Reaction: Rash Status: Active Morphine Derivatives (Allergy) Reaction: Rash Status: Active Penicillins (Allergy) Reaction: Rash Status: Active Sulfa Drugs (Allergy) Reaction: Rash Status: Active Past Medical History Name Dates Details History of Abdominal pain, acute, left upper quadrant (789.02, R10.12) Status: Resolved History of Abdominal pain, acute, right upper quadrant (789.01, R10.11) Status: Resolved History of Abrasion, cheek with infection (910.1, S00.81XA) Status: Resolved History of Acute bronchitis, unspecified organism (466.0, J20.9) Status: Resolved History of Acute frontal sinusitis, recurrence not specified (461.1, J01.10) Status: Resolved History of Acute upper back [...] diarrhea (V12.79, Z87.898) Status: Resolved History of Diarrhea, unspecified type (787.91, R19.7) Status: Resolved History of hematuria (V13.09, Z87.448) [...] 19-Mar-2007 History of Appendectomy History of Cholecystectomy MAMMOGRAM-DIAG UNILATERAL FOR LUMP PAIN Ordered: 11-Aug-2016 Immunization Name Dates Details Pneumo (Pneumovax) on: 17-Feb-2005 Pneumo (Pneumovax) on: 28-Feb-2006 Influenza on: 25-Dec-2008 Prevnar 13 Intramuscular Suspension on: 09-Jan-2015 Lot #: [id number] Family History natural son Name Dates Details [...] smoker Vital Signs Date Test Result Details 10-Aug-2016 16:58 BP Systolic 130 mm[Hg] Status: Comments: Location: ; Position: BP Diastolic 74 mm[Hg] Status: Comments: Location: ; Position: Temperature 98.4 f Status: Comments: Method: Heart Rate 76 /min Status: Comments: Location: ; Physical Findings 16 Status: Comments: Respiration Height 69 in Status: Weight 153.5 lb Status: Physical Findings 96 Status: Comments: O2 Saturation Body Mass Index Calculated 22.67 kg/m2 Status: Body Surface Area Calculated 1.85 m2 Status: Results Date Description Value Details 15-Aug-2016 11:37 ULTRASOUND BREAST LEFT Comments: Exam Date: 08/15/2016 11: 05Dictation Date: 08/15/2016 11:37 XS BREAST LEFT LIMITED Plan of Care Name Dates Details Planned Observations Planned Goals not documented Planned Encounters Appointment; Provider: Jag Jenkins M.D. On 15:00 Appointment; Provider: Uday Santana M.D. On 10:00 Appointment; Provider: Lanie Conn On 14:00 Interventions Provided Medication ChangesHydrocodone-Acetaminophen 5-325 MG Oral Tablet - Start Instructions Name Dates Details Instructions not documented Encounters Appointment; Joelle Huff A.P.RRomeo On 10-Aug-2016 Encounter Diagnosis: Problem not documented 13:15 Appointment; Uday Santana M.D. On 11-Jul-2016 Encounter Diagnosis: Problem not documented 10:00 Appointment; Allegra Estrada A.P.RRomeo On 23-Jun-2016 Encounter Diagnosis: Problem not documented [...] Diagnosis: Problem not documented 10:45 Appointment; Uday Santnaa M.D. On 08-Feb-2016 Encounter Diagnosis: Problem not [...] Problem not documented 15:50 Appointment; Jenny Lopez, P.AZay On 17-Sep-2015 Encounter Diagnosis: Problem not documented [...] Problem not documented 09:45 Appointment; Jenny Lopez P.A. On 20-Feb-2015 Encounter Diagnosis: Problem not documented [...]
--- OUTSIDE RECORDS SUMMARY | 2016-12-20 11:01 | External Medical Summary | Summary of Care ---
:1930 Author Name Bandar Santana M.D. Address [address], [place] [id number] Care Team Providers Name Role Phone Bandar Santana M.D. Unavailable Unavailable Uday Santana Primary Care Provider Unavailable [facility] ([place]) Referring Provider Unavailable Unavailable Unavailable Unavailable [...] Status: Active Menopause (627.2, Z78.0) Status: Active Osteoporosis (733.00, M81.0) Status: Active Medications Name Dates Details Cetirizine [...] 30 Refills: 5 Uday Santana M.D. Started Active Allergies and [...] Spinal Diskectomy History of Complete Colonoscopy Completed:19-Mar-2007 MAMMOGRAM-SCREENING Ordered:09-Jan-2015 DEXA Ordered:09-Jan-2015 Immunization Name Dates Details Pneumo (Pneumovax) Administered on:17-Feb-2005 Pneumo (Pneumovax) Administered on:28-Feb-2006 Influenza Administered on:25-Dec-2008 Prevnar 13 Intramuscular Suspension Administered on:09-Jan-2015 Lot #: [id number] Family History natural son Name Dates Details [...] smoker Vital Signs Date Test Result Details 09-Jan-2015 10:14 BP Systolic 104 mm[Hg] Status: BP Diastolic 68 mm[Hg] Status: Heart Rate 82 /min Status: Weight 173 lb Status: Body Mass Index Calculated 28.79 kg/m2 Status: Body Surface Area Calculated 1.86 m2 Status: Results Date Description Value Details 07-Jan-2015 08:36 CBC w/ Auto Diff 7150 WBC 9.0 K/uL (Better) Range: 4.5-11.0 RBC 4.19 mil/uL Range: 3.60-5.00 (Better) HGB 12.5 g/dL Range: 12.0-16.0 (Better) HCT 38.0 % (Better) Range: 36.0-48.0 MCV 90.7 fL (Better) Range: 80.0-99.0 MCH 29.7 pg (Better) Range: 27.3-32.5 MCHC 32.8 % (Better) Range: 32.0-36.0 RDW 13.4 % (Better) Range: 11.6-14.8 PLATELETS 227 K/uL (Better) Range: 150-400 MPV 7.8 fL (Better) Range: 6.0-11.0 %NEUTRO 67.0 % (Better) Range: 37.0-80.0 %LYMPHS 24.7 % (Better) Range: 13.0-50.0 %MONO 3.9 % (Better) Range: 0.0-12.0 %EOS 2.2 % (Better) Range: 0.0-7.0 %BASO 0.5 % (Better) Range: 0.0-2.5 %RIANNA 1.6 % (Better) Range: 0.0-5.0 NEUTRO 6.1 K/uL (Better) Range: 2.0-6.9 LYMPHS 2.2 K/uL (Better) Range: 0.6-3.4 MONOS 0.4 K/uL (Better) Range: 0.0-0.9 EOS 0.2 K/uL (Better) Range: 0.0-0.7 BASO 0.1 K/uL (Better) Range: 0.0-0.2 09:03 Comprehensive Metabolic Panel 1212 SODIUM 139 mmol/L Range: 133-144 (Better) POTASSIUM 3.7 mmol/L Range: 3.5-5.1 (Better) CHLORIDE 105 mmol/L Range: 98-110 (Better) CARBON DIOXIDE 26.5 mmol/L Range: 23.0-33.0 (Better) ANION GAP 8 mmol/L (Better) Range: 6-16 BUN 16 mg/dL (Better) Range: 7-18 CREATININE, SERUM 1.26 mg/dL (Above Range: 0.55-1.02 high threshold) Comments: Please note new reference ranges effective 09/20.----- BUN:CREATININE RATIO 13 (Better) EST GFR, 49 ml/min (Below Range: >60 low threshold) EST GFR, NON-AFR [place] 40 ml/min (Below Range: >60 low threshold) Comments: EST GFR is reported in ml/min per 1.73 m2 of body surface area. For -[place] Citizen, please multiple result by 1.2.----- GLUCOSE 97 mg/dL (Better) Range: 70-100 ALK PHOSPHATASE 106 U/L (Better) Range: 46-116 TOTAL BILIRUBIN 0.50 mg/dL Range: 0.20-1.00 (Better) AST 20 U/L (Better) Range: 8-35 ALT 18 U/L (Better) Range: 14-59 Comments: Please note new reference ranges. Effective 07/10/2014.----- ALBUMIN 3.3 g/dL (Below Range: 3.4-5.0 low threshold) TOTAL PROTEIN 7.0 g/dL (Better) Range: 6.4-8.2 A/G RATIO 0.9 units (Below Range: 1.0-1.8 low threshold) CALCIUM 8.9 mg/dL Range: 8.5-10.1 (Better) 09:03 LIPID PROFILE 1184 CHOLESTEROL 124 mg/dL Range: <200 (Better) TRIGLYCERIDES 128 mg/dL Range: 30-200 (Better) HDL Cholesterol 50 mg/dL (Better) Range: >39 NON HDL CHOLESTEROL 74 (Better) CARDIAC RSK FACTOR 2.5 units (Below Range: 4.4-5.0 low threshold) LDL - CALCULATED 48 mg/dL (Better) Range: 0-130 09:12 THYROID STIM. HORMONE 3602 THYROID STIM. HORMONE 1.477 uIU/mL Range: 0.550-4.780 (Better) Comments: No established reference ranges for infants and children <2 years of age----- 09-Jan-2015 12:29 Xray KNEE LEFT (2 Views Comments: Exam Date: 01/09/2015 11:20Dictation Date: 01/09/2015 12:29 Only) X KNEE (2V) LT (Better) Plan of Care Planned Observations Name Dates Details Planned Goals not documented Goal Planned Encounters Appointment; Provider: Jag Jenkins On 09-Jul-2015 15:15 Appointment; Provider: Uday Santana On 17-Apr-2015 09:30 Appointment; Provider: Jenny Lopez On 19-Feb-2015 13:00 Appointment; Provider: Schedule Radiology On 12-Feb-2015 14:20 Appointment; Provider: Schedule Radiology On 12-Feb-2015 14:20 Appointment; Provider: Schedule Radiology On 12-Feb-2015 14:00 Appointment; Provider: Juan Moon On 20-Jan-2015 14:30 Appointment; Provider: Barry Macdonald On 22-Dec-2010 11:45 Appointment; Provider: Bryan Melara On 03-May-2009 08:30 Instructions Instructions not documented Encounters Appointment; Uday Santana On 09-Jan-2015 Encounter Diagnosis: [...]
--- OUTSIDE RECORDS SUMMARY | 2016-12-20 11:02 | External Medical Summary | Summary of Care ---
:1930 Author Name Bandar Santana M.D. Address [address], [place] [id number] Care Team Providers Name Role Phone Bandar Santana M.D. Unavailable Unavailable Uday Santana Primary Care Provider Unavailable [facility] ([place]) Referring Provider Unavailable Unavailable Unavailable Unavailable Functional [...] symptom or sign (788.99, R39.9) Status: Active Medications Name Dates Details Cetirizine HCl - 10 MG Oral Tablet TAKE 1 TABLET BY MOUTH EVERY DAY FOR ALLERGY Quantity: 31 Refills: 11 Uday Santana M.D. Started ActiveSertraline HCl - [...] Refills: 0 Uday Santana M.D. Started 24-Dec-2013 ActiveVitamin C 500 MG Oral Tablet Take 1 tablet twice daily Refills: 0 Uday Santana M.D. Started 12-Sep-2011 ActiveNystatin 375169 UNIT/GM External Cream APPLY 2-3 TIMES DAILY TO AFFECTED AREA(S). Refills: 0 Uday Santana M.D. Started ActiveEsomeprazole [...]
--- OUTSIDE RECORDS SUMMARY | 2016-12-20 11:02 | External Medical Summary | Summary of Care ---
:1930 Author Name David Epperson M.D. Address [address], [place] [id number] Care Team Providers Name Role Phone Max Salinas, Bandar Frye Unavailable Unavailable David Epperson M.D. Unavailable Unavailable Uday Santana Primary Care Provider Unavailable [facility] ([place]) Referring Provider Unavailable Unavailable Unavailable Unavailable [...] Joint pain, knee (719.46, M25.569) Status: Active Depression (311, F32.9) Status: Active [...] Pes anserine bursitis (726.61, M70.50) Status: Active Hypercholesterolemia (272.0, E78.0) Status: Active Pleural effusion, left (511.9, J90) Status: Active Pulmonary hypertension, mild (416.8, I27.2) Status: Active Diastolic dysfunction (429.9, I51.9) Status: Active Medications Name Dates Details Cetirizine [...] 13 Intramuscular Suspension Administered on:09-Jan-2015 Lot #: [id number] Family History natural son Name Dates Details [...] Range: >60 low threshold) EST GFR, NON-AFR SCOTTISH 36 ml/min (Below Range: >60 low threshold) Comments: EST GFR is reported in ml/min per 1.73 m2 of body surface area. For -[place], please multiple result by 1.2.----- GLUCOSE 80 [...] 17-Apr-2015 09:30 Appointment; Provider: Domingo Epperson On 02-Apr-2015 14:00 Appointment; Provider: Juan Moon On 17-Mar-2015 [...] Encounter Diagnosis: Problem not documented 09:30 Appointment; eJnny Lopez On 19-Mar-2014 Encounter Diagnosis: Problem not [...]
--- OUTSIDE RECORDS SUMMARY | 2016-12-20 11:02 | External Medical Summary | Summary of Care ---
:1930 Author Name Meghna Salinas, ANYA, ,, Dianne Plunkett Address Unavailable Unavailable , Care Team Providers Name Role Phone Max Salinas, Bandar Frye Unavailable Unavailable David Epperson M.D. Unavailable Unavailable Uday Santana Primary Care Provider Unavailable [facility] ([place]) Referring Provider Unavailable Unavailable Unavailable Unavailable Functional [...] Status: Active Hyperlipidemia (272.4, E78.5) Status: Active Medications Name Dates Details Cetirizine [...] Refills: 0 Uday Santana M.D. Started 23-Dec-2011 ActiveLatanoprost 0.005 % Ophthalmic Solution INSTILL 1 [...] of Complete Colonoscopy Completed:19-Mar-2007 XRay SPINE-LUMBAR Ordered:22-Sep-2015 Immunization Name Dates Details Pneumo (Pneumovax) Administered on:17-Feb-2005 Pneumo (Pneumovax) Administered on:28-Feb-2006 Influenza Administered on:25-Dec-2008 Prevnar 13 Intramuscular Suspension Administered on:09-Jan-2015 Lot #: [id number] Family History natural son Name Dates Details [...] smoker Vital Signs Date Test Result Details 13:31 BP Systolic 160 mm[Hg] Status: BP [...] On 09:30 Appointment; Provider: Uday Santana On 11:00 Appointment; Provider: Schedule Radiology On 20-Mar-2015 14:00 Appointment; Provider: Schedule Radiology On 12-Feb-2015 14:20 Appointment; Provider: Schedule Radiology On 12-Feb-2015 14:20 Appointment; Provider: Schedule Radiology On 12-Feb-2015 14:00 Appointment; Provider: Barry Macdonald On 22-Dec-2010 11:45 Appointment; Provider: Bryan Melara On 03-May-2009 08:30 Instructions Instructions not documented Encounters Appointment; Jag Jenkins On Encounter Diagnosis: Problem [...] Encounter Diagnosis: Problem not documented 09:00 Appointment; Uady Santana On 18-Dec-2013 Encounter Diagnosis: Problem not documented 10:30 Appointment; Allegra Keating On Encounter Diagnosis: Problem not documented 09:45
--- OUTSIDE RECORDS SUMMARY | 2016-12-20 11:02 | External Medical Summary | Summary of Care ---
:1930 Author Name David Epperson M.D. Address [address], [place] [id number] Care Team Providers Name Role Phone Max Salinas, Bandar Frye Unavailable Unavailable Uday Santana Primary Care Provider Unavailable [facility] ([place]) Referring Provider Unavailable Unavailable Unavailable Unavailable Functional [...] Routine physical examination (V70.0, Z00.00) Status: Active Pes anserine bursitis (726.61, M70.50) Status: Active Medications Name Dates Details Cetirizine [...] po BID prn Quantity: 15 Refills: 0 dUay Santana M.D. Started 04-Sep-2013 ActiveMeloxicam 7.5 MG [...] Refills: 0 Uday Santana M.D. Started 26-Feb-2015 Active Allergies and Adverse Reactions Name Dates [...] 13 Intramuscular Suspension Administered on:09-Jan-2015 Lot #: [id number] Family History natural son Name Dates Details [...] Range: >60 low threshold) EST GFR, NON-AFR MALAWIAN 36 ml/min (Below Range: >60 low threshold) Comments: EST GFR is reported in ml/min per 1.73 m2 of body surface area. For -Nigerien, please multiple result by 1.2.----- GLUCOSE 80 [...] Uday Santana On 17-Apr-2015 09:30 Appointment; Provider: Juan Moon On 17-Mar-2015 08:45 Appointment; Provider: Domingo Epperson On 10-Mar-2015 13:00 Appointment; Provider: Schedule Radiology On 12-Feb-2015 14:20 Appointment; Provider: Schedule Radiology On 12-Feb-2015 14:20 Appointment; Provider: Schedule Radiology On 12-Feb-2015 14:00 Appointment; Provider: Barry Macdonald On 22-Dec-2010 11:45 Appointment; Provider: Bryan Melara On 03-May-2009 08:30 Instructions Instructions not documented Encounters Appointment; Juan Moon On 03-Mar-2015 Encounter Diagnosis: [...]
--- OUTSIDE RECORDS SUMMARY | 2016-12-20 11:03 | External Medical Summary | Summary of Care ---
:1930 Author Name Lisa Reece Address [address], [place] [id number] Care Team Providers Name Role Phone Bandar Santana M.D. 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 Left knee pain (719.46, M25.562) Status: Active Medications Name Dates Details Cetirizine [...] Complete Colonoscopy Completed:19-Mar-2007 MAMMOGRAM-SCREENING Ordered:09-Jan-2015 DEXA Ordered:09-Jan-2015 ORTHO KNEE LEFT (3 VIEWS ONLY) Ordered:20-Jan-2015 Immunization Name Dates Details Pneumo (Pneumovax) Administered on:17-Feb-2005 Pneumo (Pneumovax) Administered on:28-Feb-2006 Influenza Administered on:25-Dec-2008 Prevnar 13 Intramuscular Suspension Administered on:09-Jan-2015 Lot #: [id number] Family History natural son Name Dates Details [...] smoker Vital Signs Date Test Result Details 20-Jan-2015 14:45 BP Systolic 142 mm[Hg] Status: BP Diastolic 60 mm[Hg] Status: Heart Rate 78 /min Status: Respiration Rate 20 /min Status: 09-Jan-2015 10:14 BP Systolic 104 mm[Hg] Status: [...] Range: >60 low threshold) EST GFR, NON-AFR ROMANIAN 40 ml/min (Below Range: >60 low threshold) Comments: EST GFR is reported in ml/min per 1.73 m2 of body surface area. For -Venezuelan, please multiple result by 1.2.----- GLUCOSE 97 [...] not documented Encounters Appointment; Juan Moon On 20-Jan-2015 Encounter Diagnosis: [...]
--- OUTSIDE RECORDS SUMMARY | 2016-12-20 11:03 | External Medical Summary | Summary of Care ---
:1930 Author Name David Epperson M.D. Address [address], [place] [id number] Care Team Providers Name Role Phone Max Salinas, Bandar Frye Unavailable Unavailable David Epperson M.D. Unavailable Unavailable Uday Santana Primary Care Provider Unavailable [facility] ([place]) Referring Provider Unavailable Unavailable Unavailable Unavailable Functional [...] 7629 Ordered:16-Mar-2015 Triglycerides, Body Fluid 1257 Ordered:16-Mar-2015 FLUID CULTURE (Aerobic) Ordered:16-Mar-2015 GLUCOSE 1100 Ordered:16-Mar-2015 TOTAL PROTEIN 1150 Ordered:16-Mar-2015 LDH 1140 Ordered:16-Mar-2015 CBC w/ Auto Diff 7150 Ordered:17-Apr-2015 BASIC METABOLIC PROFILE 1210 Ordered:17-Apr-2015 ULTRASOUND THORACENTESIS SONO Ordered:10-Mar-2015 Immunization Name Dates Details Pneumo (Pneumovax) Administered on:17-Feb-2005 Pneumo (Pneumovax) Administered on:28-Feb-2006 Influenza Administered on:25-Dec-2008 Prevnar 13 Intramuscular Suspension Administered on:09-Jan-2015 Lot #: [id number] Family History natural son Name Dates Details [...]
--- OUTSIDE RECORDS SUMMARY | 2016-12-20 11:03 | External Medical Summary | Summary of Care ---
:1930 Author Name Bandar Santana M.D. Address Unavailable Unavailable , Care Team Providers Name Role Phone Max Salinas, Bandar Frye Unavailable Unavailable David Epperson M.D. Unavailable Unavailable Uday Santana Unavailable Unavailable [facility] ([place]) Unavailable Unavailable [facility] ([place]) Unavailable Unavailable Unavailable Unavailable Unavailable Functional Status [...] Refills: 3 Uday Santana M.D. Start Active Vitamin C 500 MG Oral Tablet take 2 tabs daily Refills: 0 Uday Santana M.D. Start 12-Sep-2011 Active Sertraline HCl - 50 MG Oral Tablet Take 1 tablet daily Quantity: 31 Refills: 0 Uday Santana M.D. Start 23-Dec-2011 Active Latanoprost 0.005 % Ophthalmic Solution INSTILL 1 DROP IN BOTH EYES AT BEDTIME. Refills: 0 Uday Santana M.D. Start 04-Sep-2013 Active Hydrocodone-Acetaminophen 5-325 MG Oral Tablet take 1/2 tab po BID prn Quantity: 15 Refills: 0 Uday Santana M.D. Start 04-Sep-2013 Active Meloxicam 7.5 MG Oral Tablet TAKE 1 TABLET DAILY FOR ARTHRITIS Quantity: 31 Refills: 0 Max Salinas, Uday Portillo Start Active Esomeprazole Magnesium 40 MG Oral Capsule Delayed Release TAKE 1 CAPSULE DAILY. Quantity: 31 Refills: 5 Max Gillis., Uday Portillo Start Active Hydrocortisone 1 % External Cream APPLY SPARINGLY AND RUB IN WELL TO AFFECTED AREA(S) DIRECTED. Refills: 0 Uday Santana M.D. Start 27-Jan-2015 Active Vitamin D3 2000 UNIT Oral Tablet TAKE ONE TAB PO DAILY Refills: 0 Uday Santana M.D. Start 20-Feb-2015 Active Midodrine HCl - 5 MG Oral Tablet TAKE 1 TABLET 3 TIMES DAILY. Quantity: 90 Refills: 1 Max Dean.Reva, Uday Portillo Start 25-Feb-2015 Active Atorvastatin Calcium 20 MG Oral Tablet TAKE 1 TABLET DAILY AT BEDTIME Quantity: 31 Refills: 0 Uday Santana M.D. Start 26-Feb-2015 Active Aspirin 81 MG TABS Refills: 0 Zeenat Salinas Domingo David Start 10-Mar-2015 Active Mapap 325 MG Oral [...] 0 Uday Santana M.D. Start 12-Jan-2016 Active Allergies and Adverse Reactions Name Dates [...] Diskectomy History of Complete Colonoscopy Completed: 19-Mar-2007 Procedures not documented Immunization Name Dates Details Pneumo (Pneumovax) on: 17-Feb-2005 Pneumo (Pneumovax) on: 28-Feb-2006 Influenza on: 25-Dec-2008 Prevnar 13 Intramuscular Suspension on: 09-Jan-2015 Lot #: [id number] Family History natural son Name Dates Details [...] smoker Vital Signs Date Test Result Details 12-Jan-2016 09:55 BP Systolic 128 mm[Hg] Status: Comments: Location: ; Position: BP Diastolic 78 mm[Hg] Status: Comments: Location: ; Position: Heart Rate 64 /min Status: Comments: Location: ; Weight 169 lb Status: Body Mass Index Calculated 24.96 kg/m2 Status: Body Surface Area Calculated 1.92 m2 Status: Results Date Description Value Details 08-Jan-2016 08:25 CBC w/ Auto Diff 7150 WBC 8.9 K/uL Range: 4.5-11.0 RBC 3.91 mil/uL Range: 3.60-5.00 HGB 11.9 g/dL (Below low threshold) Range: 12.0-16.0 HCT 37.6 % Range: 36.0-48.0 MCV 96.3 fL Range: 80.0-99.0 MCH 30.5 pg Range: 27.3-32.5 MCHC 31.7 % (Below low threshold) Range: 32.0-36.0 RDW 13.8 % Range: 11.6-14.8 PLATELETS 267 K/uL Range: 150-400 MPV 7.0 fL Range: 6.0-11.0 %NEUTRO 66.9 % Range: 37.0-80.0 %LYMPHS 21.6 % Range: 13.0-50.0 %MONO 5.0 % Range: 0.0-12.0 %EOS 4.1 % Range: 0.0-7.0 %BASO 0.4 % Range: 0.0-2.5 %RIANNA 2.1 % Range: 0.0-5.0 NEUTRO 6.0 K/uL Range: 2.0-6.9 LYMPHS 1.9 K/uL Range: 0.6-3.4 MONOS 0.5 K/uL Range: 0.0-0.9 EOS 0.4 K/uL Range: 0.0-0.7 BASO 0.0 K/uL Range: 0.0-0.2 08:41 BASIC METABOLIC PROFILE 1210 Comments: Fastin hours SODIUM 140 mmol/L Range: 133-144 POTASSIUM 3.9 mmol/L Range: 3.5-5.1 CHLORIDE 106 mmol/L Range: 98-110 CARBON DIOXIDE 26.6 mmol/L Range: 23.0-33.0 ANION GAP 7 mmol/L Range: 6-16 BUN 15 mg/dL Range: 7-18 CREATININE, SERUM 0.94 mg/dL Range: 0.55-1.02 EST GFR, >60 ml/min Range: >60 EST GFR, NON-AFR [facility] HELENIAN 56 ml/min (Below low Range: >60 threshold) Comments: EST GFR is reported in ml/min per 1.73 m2 of body surface area. ----- BUN:CREATININE RATIO 16 GLUCOSE 87 mg/dL Range: 70-100 CALCIUM 8.7 mg/dL Range: 8.5-10.1 Plan of Care Name Dates Details Planned Observations Planned Goals not documented Planned Encounters Appointment; Provider: Jag Jenkins M.D. On 15:00 Appointment; Provider: Domingo Epperson M.D. On 09:30 Appointment; Provider: Uday Santana M.D. On 12-Apr-2016 10:00 Instructions Name Dates Details Instructions not documented Encounters Appointment; Uday Santana M.D. On Encounter Diagnosis: [...] Diagnosis: Problem not documented 14:30 Appointment; Uday Satnana M.D. On 09-Jan-2015 Encounter Diagnosis: Problem not [...] Diagnosis: Problem not documented 09:30 Appointment; Jenny Lopez, P.A. On 19-Mar-2014 Encounter Diagnosis: Problem not documented 13:00 Appointment; Uday Santana M.D. On 20-Feb-2014 Encounter Diagnosis: Problem not documented 09:00
--- OUTSIDE RECORDS SUMMARY | 2016-12-20 11:03 | External Medical Summary | Summary of Care ---
:1930 Author Name Jenny Plasencia Address [address], [place] [address] Care Team Providers Name Role Phone Max Salinas, Bandar Frye Unavailable Unavailable David Epperson M.D. 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 Refills: 0 Uday aSntana M.D. Started 04-Sep-2013 ActiveHydrocodone-Acetaminophen 5-325 MG Oral [...] 13 Intramuscular Suspension Administered on:09-Jan-2015 Lot #: [id number] Family History natural son Name Dates Details [...] smoker Vital Signs Date Test Result Details 19-Sep-2015 15:57 BP Systolic 144 mm[Hg] Status: [...] On 09:30 Appointment; Provider: Uday Santana On 22-Sep-2015 10:00 Appointment; Provider: Schedule Radiology On 20-Mar-2015 14:00 Appointment; Provider: Schedule Radiology On 12-Feb-2015 14:20 Appointment; Provider: Schedule Radiology On 12-Feb-2015 14:20 Appointment; Provider: Schedule Radiology On 12-Feb-2015 14:00 Appointment; Provider: Barry Macdonald On 22-Dec-2010 11:45 Appointment; Provider: Bryan Melara On 03-May-2009 08:30 Instructions Instructions not documented Encounters Appointment; Emilie Romo On 19-Sep-2015 Encounter Diagnosis: [...]
--- OUTSIDE RECORDS SUMMARY | 2016-12-20 11:03 | External Medical Summary | Summary of Care ---
:1930 Author Name Graciela Curtis Address [address] [place] [address] Care Team Providers Name Role Phone Max Salinas, aBndar Frye Unavailable Unavailable David Epperson M.D. Unavailable Unavailable Uday Santana Primary Care Provider Unavailable [facility] ([place]) Referring Provider Unavailable Unavailable Unavailable Unavailable Functional [...] 1 tablet daily Quantity: 31 Refills: 5 dUay Santana M.D. Started 23-Dec-2011 ActiveChildrens Aspirin 81 [...] Fluid 1152 Ordered:16-Mar-2015 FUNGUS CULTURE (OTHER SOURCE) [id number] Ordered:16-Mar-2015 MYCOBACTERIA ( AFB) CULTURE 5220 Ordered:16-Mar-2015 FLUID CULTURE (Aerobic) Ordered:16-Mar-2015 GLUCOSE 1100 Ordered:16-Mar-2015 TOTAL PROTEIN 1150 Ordered:16-Mar-2015 LDH 1140 Ordered:16-Mar-2015 ULTRASOUND THORACENTESIS SONO Ordered:10-Mar-2015 Immunization Name Dates Details Pneumo (Pneumovax) Administered on:17-Feb-2005 Pneumo (Pneumovax) Administered on:28-Feb-2006 Influenza Administered on:25-Dec-2008 Prevnar 13 Intramuscular Suspension Administered on:09-Jan-2015 Lot #: [id number] Family History natural son Name Dates Details [...] Range: >60 low threshold) EST GFR, NON-AFR ISRAELI 36 ml/min (Below Range: >60 low threshold) Comments: EST GFR is reported in ml/min per 1.73 m2 of body surface area. For -Emirati, please multiple result by 1.2.----- GLUCOSE 80 [...] not documented Encounters Appointment; Uday Santana On 18-Mar-2015 Encounter Diagnosis: [...]
--- OUTSIDE RECORDS SUMMARY | 2016-12-20 11:04 | External Medical Summary | Summary of Care ---
:1930 Author Name Bandar Santana M.D. Address [address], [place] [id number] Care Team Providers Name Role Phone Bandar Santana M.D. Unavailable Unavailable David Epperson M.D. Unavailable Unavailable Uday Santana Primary Care Provider Unavailable [facility] ([place]) Referring Provider Unavailable Unavailable Unavailable Unavailable [...] Take 1 tablet twice a day Quantity: 62 Refills: 0 Uday Santana M.D. Started 25-Feb-2015 [...] Refills: 0 Uday Santana M.D. Started 17-Jun-2015 ActivePredniSONE 20 MG Oral Tablet 3tabs daily for 2 days, 2 tabs for 2 days, 1 tab for 2 days, 1/2 tab daily for 4 days Quantity: 15 Refills: 0 Uday Santana M.D. Started 17-Jun-2015 [...] Spinal Diskectomy History of Complete Colonoscopy Completed:19-Mar-2007 CBC w/ Auto Diff 7150 Ordered:17-Apr-2015 BASIC METABOLIC PROFILE 1210 Ordered:17-Apr-2015 Immunization Name Dates Details Pneumo (Pneumovax) Administered on:17-Feb-2005 Pneumo (Pneumovax) Administered on:28-Feb-2006 Influenza Administered on:25-Dec-2008 Prevnar 13 Intramuscular Suspension Administered on:09-Jan-2015 Lot #: [id number] Family History natural son Name Dates Details [...] smoker Vital Signs Date Test Result Details 17-Jun-2015 10:15 BP Systolic 132 mm[Hg] Status: BP Diastolic 74 mm[Hg] Status: Heart Rate 86 /min Status: Weight 164 lb Status: Body Mass Index Calculated 24.86 kg/m2 Status: Body Surface Area Calculated 1.88 m2 Status: 28-May-2015 13:39 BP Systolic 88 mm[Hg] Status: BP Diastolic 50 mm[Hg] Status: Temperature 97.4 f Status: Heart Rate 95 /min Status: Respiration Rate 17 /min Status: Weight 167.4 lb Status: Body Mass Index Calculated 25.38 kg/m2 Status: Body Surface Area Calculated 1.9 m2 Status: Results Date Description Value Details Results not documented Plan of Care Planned Observations Name Dates Details Planned Goals not documented Goal Planned Encounters Appointment; Provider: Jag Jenkins On 13:15 Appointment; Provider: Domingo Epperson On 09:30 Appointment; Provider: Uday Santana On 29-Jul-2015 11:00 Appointment; Provider: Jag Jenkins On 09-Jul-2015 15:15 Appointment; Provider: Schedule Radiology On 20-Mar-2015 14:00 Appointment; Provider: Schedule Radiology On 12-Feb-2015 14:20 Appointment; Provider: Schedule Radiology On 12-Feb-2015 14:20 Appointment; Provider: Schedule Radiology On 12-Feb-2015 14:00 Appointment; Provider: Barry Macdonald On 22-Dec-2010 11:45 Appointment; Provider: Bryan Melara On 03-May-2009 08:30 Instructions Instructions not documented Encounters Appointment; Uday Santana On 17-Jun-2015 Encounter Diagnosis: [...]
--- OUTSIDE RECORDS SUMMARY | 2016-12-20 11:04 | External Medical Summary | Summary of Care ---
:1930 Author Name Bandar Santana M.D. Address Unavailable Unavailable , Care Team Providers Name Role Phone Max Salinas, Bandar Frye Unavailable Unavailable David Epperson M.D. Unavailable Unavailable Uday Santana Unavailable Unavailable [facility] ([place]) Unavailable Unavailable [facility] ([place]) Unavailable Unavailable Unavailable Unavailable Unavailable Functional Status [...] pain, left anterior (719.46, M25.562) Status: Active Hip pain, acute, right (719.45, [...] Left knee pain (719.46, M25.562) Status: Active Low back pain (724.2, M54.5) Status: Active Hypotension (458.9, I95.9) Status: Active Anemia (285.9, D64.9) Status: Active Medications Name Dates Details Cetirizine [...] 13 Intramuscular Suspension on: 09-Jan-2015 Lot #: [id number] Family History natural son Name Dates Details [...] >60 ml/min Range: >60 EST GFR, NON-AFR UGANDAN 56 ml/min (Below low Range: >60 threshold) [...]
--- OUTSIDE RECORDS SUMMARY | 2016-12-20 11:04 | External Medical Summary | Summary of Care ---
:1930 Author Name Emilie Romo M.D. Address [address], [place] [id number] Care Team Providers Name Role Phone Max Salinas, Bandar Frye Unavailable Unavailable David Epperson M.D. Unavailable Unavailable Uday Santana Primary Care Provider Unavailable [facility] ([place]) Referring Provider Unavailable Unavailable [...] Take 1 tablet twice daily Refills: 0 Uady Santana M.D. Started 12-Sep-2011 ActiveSertraline HCl - [...] 13 Intramuscular Suspension Administered on:09-Jan-2015 Lot #: [id number] Family History natural son Name Dates Details [...] Range: >60 low threshold) EST GFR, NON-AFR CHILEAN 36 ml/min (Below Range: >60 low threshold) Comments: EST GFR is reported in ml/min per 1.73 m2 of body surface area. For -Malaysian, please multiple result by 1.2.----- GLUCOSE 80 [...]
--- OUTSIDE RECORDS SUMMARY | 2016-12-20 11:04 | External Medical Summary | Summary of Care ---
:1930 Author Name Bandar Santana M.D. Address Unavailable Unavailable , Care Team Providers Name Role Phone Max Salinas, Bandar Frye Unavailable Unavailable David Epperson M.D. 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 Start Active Vitamin C 500 MG Oral Tablet take 2 tabs daily Refills: 0 Max Salinas, Uday Portillo Start 12-Sep-2011 Active Latanoprost 0.005 % Ophthalmic [...] Oral Suspension USE DIRECTED. Refills: 0 Max Dean.Theodora., Uday Portillo Start 08-Feb-2016 Active Tylenol 325 MG Oral Tablet TAKE 1 TO 2 TABLETS EVERY 4 HOURS NEEDED Refills: 0 Max Dean.Theodora., Uday Portillo Start 08-Feb-2016 Active Pepto-Bismol 262 MG Oral Tablet Chewable USE DIRECTED. Refills: 0 Max Dean.Theodora., Uday Portillo Start 08-Feb-2016 Active Maalox Max 400-400-40 MG/5ML Oral Suspension USE DIRECTED. Refills: 0 Max Dean.Theodora., Uday Portillo Start 08-Feb-2016 Active Mylanta 200-200-20 MG/5ML Oral Suspension USE DIRECTED. Refills: 0 Max Dean.Theodora., Uday Portillo Start 08-Feb-2016 Active Midodrine HCl - 5 MG Oral Tablet take 1 tablet two times daily Quantity: 60 Refills: 5 Start 16-Feb-2016 Active Allergies and Adverse Reactions Name Dates [...] 13 Intramuscular Suspension on: 09-Jan-2015 Lot #: [id number] Family History natural son Name Dates Details [...] smoker Vital Signs Date Test Result Details 08-Mar-2016 10:02 BP Systolic 122 mm[Hg] Status: Comments: Location: ; Position: BP Diastolic 73 mm[Hg] Status: Comments: Location: ; Position: Heart Rate 95 /min Status: Comments: Location: ; Height 69 in Status: Results Date Description Value Details Results not documented Plan of Care Name Dates Details Planned Observations Planned Goals not documented Planned Encounters Appointment; Provider: Jag Jenkins M.D. On 15:00 Appointment; Provider: Uday Santana M.D. On 12-Apr-2016 10:00 Interventions Provided Medication ChangesHydrocodone-Acetaminophen 5-325 MG Oral Tablet - Renew Instructions Name Dates Details Instructions not documented Encounters Appointment; Juan Moon M.D. On 08-Mar-2016 Encounter [...] Problem not documented 10:00 Appointment; Jenny Lopez PZayAZay On 28-May-2015 Encounter Diagnosis: Problem not documented 13:00 Appointment; Uday Santana M.D. On 17-Apr-2015 Encounter Diagnosis: Problem not documented 09:30 Appointment; iCro Lewis P.A. On 13-Apr-2015 Encounter Diagnosis: Problem [...] Problem not documented 09:45 Appointment; Jenny Lopez PZayAZay On 20-Feb-2015 Encounter Diagnosis: Problem not documented [...]
--- NOTE | 2016-12-20 11:05 | Emergency Department Report ---
Psych HPI - General Chief Complaint: Psychiatric Symptoms Stated Complaint: [facility] Eval Time Seen by Provider: 12/20/16 10:53 Source: patient, old records reviewed Mode of arrival: ambulatory Limitations: altered mental status - History of Present Illness HPI Narrative: 86yo woman referred to the ER by her physician for admission to [facility]. 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 MD complaint: altered mental status Onset (ago): week(s) Duration: constant Prior Hospitalization: No - Related Data Home Medications Medication Instructions Recorded Confirmed Acetaminophen 325 - 500 mg PO Q4HPRN 12/20/16 12/20/16 Acetaminophen [Acetaminophen Extra 500 mg PO DAILY 12/20/16 12/20/16 Strength] Ascorbic Acid [Vitamin C] 1,000 mg PO DAILY 12/20/16 12/20/16 Aspirin [Adult Low Dose Aspirin EC] 81 mg PO DAILY 12/20/16 12/20/16 Bisacodyl Supp [Dulcolax] 10 mg RECTALLY PRN PRN 12/20/16 12/20/16 Bismuth Subsalicylate [Kaopectate] 262 mg PO Q6HPRN PRN 12/20/16 12/20/16 Cetirizine [Zyrtec] 10 mg PO PRN PRN 12/20/16 12/20/16 Cholecalciferol [Vit. D-3] 1,000 unit PO DAILY 12/20/16 12/20/16 Docusate Sodium [Colace] 1 cap PO HS 12/20/16 12/20/16 Esomeprazole Magnesium [Nexium] 20 mg PO DAILY 12/20/16 12/20/16 Hydrocodone/Acetaminophen 0.5 tab PO HS 12/20/16 12/20/16 [Hydrocodon-Acetaminophen 5-325] Hydrocodone/Acetaminophen 0.5 tab PO Q4-6HPRN PRN 12/20/16 12/20/16 [Hydrocodon-Acetaminophen 5-325] Latanoprost [Latanoprost] 1 drop EACH EYE HS 12/20/16 12/20/16 Mag Hydrox/Aluminum Hyd/Simeth 2 - 4 tsp PO Q8HPRN PRN 12/20/16 12/20/16 [Maalox Advanced Suspension] Meloxicam [Meloxicam] 7.5 mg PO DAILY 12/20/16 12/20/16 Midodrine [Proamatine] 5 mg PO BID 12/20/16 12/20/16 Milk of Magnesia [Mom] 30 - 60 ml PO PRN PRN 12/20/16 12/20/16 Ondansetron HCl 4 mg PO Q4HPRN PRN 12/20/16 12/20/16 Polyethylene Glycol 3350 [Miralax] 17 gm PO DAILY PRN 12/20/16 12/20/16 Propylene Glycol [Systane Balance] 1 drop OP BID 12/20/16 12/20/16 Sertraline [Zoloft] 50 mg PO DAILY 12/20/16 12/20/16 guaiFENesin [Mucinex] 600 mg PO [id number] PRN 12/20/16 12/20/16 Allergies Allergy/AdvReac Type Severity Reaction Status Date / Time codeine [Codiene] Allergy Unknown Verified 12/20/16 10:58 morphine Allergy Unknown Verified 12/20/16 10:58 Penicillins Allergy Unknown Verified 12/20/16 10:57 Sulfa (Sulfonamide Allergy Unknown Verified 12/20/16 10:58 Antibiotics) Review of Systems All systems: reviewed and negative except as stated Musculoskeletal: Reports: arthralgia PFSH Patient Stated Medical History Other HEENT Yes: Allergic Rhinitis Congestive Heart Failure Yes Coronary Artery Disease Yes Hypotension Yes Other Respiratory Yes: Hx of influenza Gastroesophageal Reflux Yes Disease Other GI Yes: constipation Hx Urinary Tract Infection Yes Anemia Yes Clotting Problems Yes Osteoarthritis Yes Other Musculoskeletal Yes: Arthrofibrosis, De Quervain's tenosynovitis , Osteoporosis, Bursitis Other Yes: Dermatitis Depression Yes Post Menopausal Yes Medical History Updates: Constipation. Atypical chest pain. Anemia. Hypotension. Hyperlipidemia. CAD. Weight loss, unintentional. Allergic rhinitis. Anxiety. Osteoarthritis, multiple joints. Dementia. GERD. DeQuervain's tenosynovitis Physical Exam - Limitations Limitations: altered mental status - General General appearance: alert, in no apparent distress - Normal Exams: Head:: Normocephalic without trauma Eyes:: Pupils are PERRLA w/ EOMI, No scleral icterus, irritation, or foreign bodies noted ENMT:: No facial trauma, nasal exudates Neck:: Full range of motion, without adenopathy Chest/Respirations:: Clear all jordan, with good airflow Cardiovascular:: Regular rate and rhythm, without murmur or gallop Abdomen:: Bowel sounds positive, soft, non-tender Lymphatic:: No lymphadenopathy Musculoskeletal:: No tenderness, or deformity noted Integumentary:: No rashes, hives, or bruising noted Neurological:: Patient is alert, and oriented Psychiatric:: Patient exhibits, appropriate attention Course - Consultations Consultation #1: [facility]: Will retrieve pt Time: 12:00 Vital Signs Temperature 98.1 F 12/20/16 10:40 Pulse Rate 77 12/20/16 10:40 Respiratory Rate 18 12/20/16 10:40 Blood Pressure 151/68 H 12/20/16 10:40 Pulse Oximetry 97 12/20/16 10:40 Temperature 98.1 F 12/20/16 10:40 Pulse Rate 77 12/20/16 10:40 Respiratory Rate 18 12/20/16 10:40 Blood Pressure 151/68 H 12/20/16 10:40 Pulse Oximetry 97 12/20/16 10:40 Psych - Differential Diagnosis Likely: acute psychosis, depression, drug-induced psychotic disorder, acute anxiety - Medical Records Attestation: I reviewed the patient's medical records. - Lab Data Attestation: I reviewed the patient's lab results. Result diagrams: 12/20/16 11:06 12/20/16 11:06 Lab Results 12/20/16 12/20/16 12/20/16 Range/Units 11:06 11:06 11:48 WBC 7.3 (4.5-11.0) T/MM3 RBC 3.61 L (4.00-5.20) M/MM3 Hgb 10.9 L (12-16) GM/DL Hct 33.6 L (36-46) % MCV 93.1 (80-100) UM3 MCH 30.2 (26-34) UUG MCHC 32.4 (31-37) GM/DL RDW Std Deviation 44.0 (36.9-50.2) FL Plt Count 215 (130-400) T/MM3 MPV 9.1 L (9.4-12.4) UM3 Immature Gran % (Auto) 0.1 (0.0-0.5) % Neut % (Auto) 68.4 H (33-66) % Lymph % (Auto) 24.2 (23-45) % Bacon % (Auto) 5.9 (0-9.0) % Eos % (Auto) 1.1 (0-4) % Baso % (Auto) 0.3 (0-2) % Neut # 5.0 (1.8-7.7) T/MM3 Lymph # 1.8 (1-4.8) T/MM3 Bacon # 0.4 (0-0.8) T/MM3 Eos # 0.1 (0-0.5) T/MM3 Baso # 0.0 (0-0.2) T/MM3 Abs Immat Gran (auto) 0.01 (0.00-0.03) T/MM3 Turbidity < 20 (0-20) Sodium 144 (134-144) MEQ/L Potassium 4.0 (3.6-5) MEQ/L Chloride 113 H (98-107) MEQ/L Carbon Dioxide 21 L (22-30) MEQ/L Anion Gap 10 (5-15) MEQ/L BUN 24.0 H (7-17) MG/DL Creatinine 0.9 (0.7-1.2) MG/DL GFR Calculation 59 BUN/Creatinine Ratio 27 H (6-26) RATIO Glucose 115 H (65-110) MG/DL Calculated Osmolality 282 H (261-280) MOSM/KG Calcium 9.5 (8.4-10.2) MG/DL Total Bilirubin 0.60 (0.20-1.30) MG/DL Icterus Index < 2 (0-7) AST 23 (14-36) U/L ALT 39 (9-52) U/L Alkaline Phosphatase 78 (38-126) U/L Total Protein 6.4 (6.3-8.2) G/DL Albumin 3.5 (3.5-5.0) G/DL Globulin 2.9 (2.4-3.6) G/DL Albumin/Globulin Ratio 1.2 (1.1-2.2) RATIO TSH 1.65 (0.47-4.68) MIU/L Specimen Hemolysis < 15 (0-25) Ur Collection Type Urine, clean catch Urine Color Yellow (YELLOW) Urine Clarity Cloudy Urine pH 6.5 (5.0-8.0) Ur Specific Thompson 1.015 (1.015-1.025) Urine Protein Trace A (NEGATIVE) Urine Glucose (UA) Negative (NEGATIVE) Urine Ketones Trace A (NEGATIVE) Urine Occult Blood Negative (NEGATIVE) Urine Nitrate Negative (NEGATIVE) Urine Bilirubin Negative (NEGATIVE) Urine Urobilinogen 1.0 (NORMAL) EU/DL Ur Leukocyte Esterase 2+ A (NEGATIVE) Urine RBC 0-1 (0-3) /HPF Urine WBC 30-50 H (0-5) /HPF Ur Squamous Epith Cells 20-50 Amorphous Sediment Moderate Urine Bacteria 4+ H (NEGATIVE) Ur Culture Indicated? Cult reflexed &setup Salicylates < 1.0 L (2-20) MG/DL Acetaminophen 15 (10-30) UG/ML Alcohol, Quantitative <10 (<10) MG/DL - Radiology Data Attestation: I reviewed the patient's radiology results. Disposition Clinical Impression: Cystitis Dementia Qualifiers: Dementia type: unspecified type Dementia behavioral disturbance: with behavioral disturbance Qualified Code(s): F03.91 - Unspecified dementia with behavioral disturbance Disposition: 63 To [facility] Condition: Improved Prescriptions: No Action Hydrocodone/Acetaminophen [Hydrocodon-Acetaminophen 5-325] 0.5 tab PO Q4- 6HPRN PRN PRN Reason: Pain Ondansetron HCl 4 mg PO Q4HPRN PRN PRN Reason: Nausea guaiFENesin [Mucinex] 600 mg PO [id number] PRN PRN Reason: Prn Orders Mag Hydrox/Aluminum Hyd/Simeth [Maalox Advanced Suspension] 2 - 4 tsp PO Q8HPRN PRN PRN Reason: Prn Orders Bismuth Subsalicylate [Kaopectate] 262 mg PO Q6HPRN PRN PRN Reason: Prn Orders Acetaminophen 325 - 500 mg PO Q4HPRN Bisacodyl Supp [Dulcolax] 10 mg RECTALLY PRN PRN PRN Reason: Prn Orders Esomeprazole Magnesium [Nexium] 20 mg PO DAILY Docusate Sodium [Colace] 1 cap PO HS Midodrine [Proamatine] 5 mg PO BID Latanoprost [Latanoprost] 1 drop EACH EYE HS Sertraline [Zoloft] 50 mg PO DAILY Propylene Glycol [Systane Balance] 1 drop OP BID Cholecalciferol [Vit. D-3] 1,000 unit PO DAILY Aspirin [Adult Low Dose Aspirin EC] 81 mg PO DAILY Meloxicam [Meloxicam] 7.5 mg PO DAILY Polyethylene Glycol 3350 [Miralax] 17 gm PO DAILY PRN PRN Reason: Constipation Cetirizine [Zyrtec] 10 mg PO PRN PRN PRN Reason: Prn Orders Milk of Magnesia [Mom] 30 - 60 ml PO PRN PRN PRN Reason: Constipation Hydrocodone/Acetaminophen [Hydrocodon-Acetaminophen 5-325] 0.5 tab PO HS Acetaminophen [Acetaminophen Extra Strength] 500 mg PO DAILY Ascorbic Acid [Vitamin C] 1,000 mg PO DAILY Time of Disposition: 12:09 - Seen By: physician
--- OUTSIDE RECORDS SUMMARY | 2016-12-20 11:05 | External Medical Summary | Summary of Care ---
:1930 Author Name Kimmy Jenkins M.D. Address Unavailable Unavailable , Care Team Providers Name Role Phone Alice Salinas, Kimmy Rm Unavailable Unavailable Max Salinas, Bandar Frye Unavailable Unavailable Zeenat Salinas, David Lane Unavailable Unavailable Uday Santana Unavailable Unavailable [facility] [place] Unavailable [facility] [place] Unavailable Unavailable Unavailable Unavailable Unavailable Functional Status Functional Status Health Issues Name Dates Details Functional status health issues are not documented Status: Cognitive Status Health Issues Name Dates Details Cognitive status health issues are not documented Status: Problems Name Dates Details Do Not Resuscitate Form On File Active Status: Active Hyperglycemia (790.29, R73.9) Status: [...] Active Allergic rhinitis (477.9, J30.9) Status: Active Dermatitis (692.9, L30.9) Status: Active [...] Status: Active Anemia (285.9, D64.9) Status: Active Abnormal weight loss (783.21, R63.4) Status: Active Visit for periodic health examination (V70.0, Z00.00) Status: Active Hypotension (458.9, I95.9) Status: Active Depression (311, F32.9) Status: Active Breast lump on left side at 12 o'clock position (611.72, N63) Status: Active Pulmonary hypertension, mild (416.8, I27.2) Status: Active CAD (coronary atherosclerotic disease) (414.00, I25.10) Status: Active PTCA Status: Active Hyperlipidemia (272.4, E78.5) Status: Active Medications Name Dates Details Cetirizine HCl - 10 MG Oral Tablet TAKE 1 TABLET BY MOUTH EVERY DAY FOR ALLERGY Quantity: 31 Refills: 3 Max M.D.Uday Start Active Sertraline HCl - 50 MG Oral Tablet TAKE ONE TABLET BY MOUTH EVERY MORNING Quantity: 31 Refills: 0 Max Dean.Uday Ardon Start Active Vitamin C 500 MG Oral Tablet Take two tablets by mouth every morning Quantity: 62 Refills: 0 Max Dean.Uday Ardon Start Active Latanoprost 0.005 % Ophthalmic Solution INSTILL 1 DROP INTO EACH EYE DAILY AT BEDTIME Quantity: 2.5 Refills: 0 Max Dean.Uday Ardon Start Active Hydrocodone-Acetaminophen 5-325 MG Oral Tablet take 1/2 po every 4 hours PRN Quantity: 15 Refills: 0 Max Dean.Uday Ardon Start 04-Sep-2013 Active Meloxicam 7.5 MG Oral Tablet TAKE ONE TABLET BY MOUTH EVERY MORNING Quantity: 31 Refills: 0 Max Dean.Uday Ardon Start Active Esomeprazole Magnesium 40 MG Oral Capsule Delayed Release TAKE 1 CAPSULE DAILY. Quantity: 31 Refills: 5 Max M.D.Udya Start Active Atorvastatin Calcium 20 MG Oral Tablet TAKE ONE TABLET BY MOUTH EVERY NIGHT AT BEDTIME Quantity: 31 Refills: 0 Max Dean.Uday Ardon Start Active Aspirin 81 MG TABS Refills: 0 [...] 0 Uday Santana M.D. Start 08-Feb-2016 Active ZyrTEC Allergy 10 MG Oral Capsule TAKE ONCE DAILY NEEDED FOR ALLERGIES Refills: 0 Uday Santana M.D. Start 12-Apr-2016 Active Ondansetron 4 MG Oral Tablet Disintegrating TAKE 1 TABLET EVERY 6 HOURS NEEDED FOR NAUSEA/VOMITTING Quantity: 20 Refills: 0 Uday Santana M.D. Start 12-Apr-2016 Active Midodrine HCl - 5 MG Oral Tablet Take one tablet by mouth twice a day Quantity: 60 Refills: 4 Uday Santana M.D. Start 06-Sep-2016 Active Aspir-Low 81 MG Oral Tablet Delayed Release TAKE ONE TABLET BY MOUTH EVERY MORNING Quantity: 31 Refills: 0 Uday Santana M.D. Start Active Vitamin D3 1000 UNIT Oral Tablet TAKE ONE TABLET BY MOUTH EVERY MORNING Quantity: 31 Refills: 0 Max M.D., Uday Portillo Start Active Ascorbic Acid 500 MG Oral Tablet TAKE TWO TABLETS (1000MG) BY MOUTH DAILY Refills: 0 Max M.D., Uday Portillo Start Active Ciprofloxacin HCl - 250 MG Oral Tablet TAKE 1 TABLET EVERY 12 HOURS DAILY x 10 days Quantity: 10 Refills: 0 Max M.D., Uday Portillo Start Active Allergies and Adverse Reactions Name Dates [...] Appendectomy History of Cholecystectomy CP Echo Ordered: BASIC METABOLIC PROFILE 1210 Ordered: CBC w/ Auto Diff 7150 Ordered: Immunization Name Dates Details Pneumo (Pneumovax) on: 17-Feb-2005 Pneumo (Pneumovax) on: 28-Feb-2006 Influenza on: 25-Dec-2008 Prevnar 13 Intramuscular Suspension on: 09-Jan-2015 Lot #: [id number] Family History natural son Name Dates Details [...] smoker Vital Signs Date Test Result Details 15:07 BP Systolic 138 mm[Hg] Status: Comments: Location: ; Position: BP Diastolic 76 mm[Hg] Status: Comments: Location: ; Position: Heart Rate 68 /min Status: Comments: Location: ; 10:26 BP Systolic 136 mm[Hg] Status: Comments: Location: ; Position: BP Diastolic 74 mm[Hg] Status: Comments: Location: ; Position: Heart Rate 64 /min Status: Comments: Location: ; Weight 154 lb Status: Body Mass Index Calculated 22.74 kg/m2 Status: Body Surface Area Calculated 1.85 m2 Status: 14:02 BP Systolic 126 mm[Hg] Status: Comments: Location: ; Position: BP Diastolic 74 mm[Hg] Status: Comments: Location: ; Position: Heart Rate 73 /min Status: Comments: Location: ; Height 69 in Status: Weight 155 lb Status: Physical Findings 98 Status: Comments: O2 Saturation Body Mass Index Calculated 22.89 kg/m2 Status: Body Surface Area Calculated 1.85 m2 Status: Results Date Description Value Details 11:00 Urinalysis, Reflex to Microscopic or Culture PRN 8005 pH 7.5 Range: 5.0-7.5 SP GRAVITY 1.010 Range: 1.010-1.030 APPEARANCE TURBID (Abnormal) Range: Clear COLOR YELLOW Range: Straw-Yellow PROTEIN 30 mg/dL (Abnormal) Range: Negative-Trace GLUCOSE NEGATIVE mg/dL Range: Negative KETONE NEGATIVE mg/dL Range: Negative BILIRUB NEGATIVE Range: Negative BLOOD SMALL (Abnormal) Range: Negative UROBIL 1.0 EU/dL Range: 0.2-1.0 NITRITE NEGATIVE Range: Negative LEUK LARGE (Abnormal) Range: Negative 11:00 Urine Microscopic UMIC WBC 21-50 /HPF (Abnormal) Range: 0-5 Comments: Specimen referred to Reference Lab for Culture----- RBC 0-2 /HPF Range: 0-2 BACTERIA 4+ /HPF (Abnormal) Range: Negative-Trace Comments: Specimen referred to Reference Lab for Culture----- EPITH 0-2 /HPF Range: 0-10 11:19 URINE CULTURE [id number] Comments: [facility] performed at: [facility], [address] [place], [address], Echocardiograph Tech: Clif Dunaway D.O., MPHQuest Collection Date/Time: [id number] Results Received Date/Time: [id number] Reported Date /Time: [id number] FASTING:NOQuest performed at : [place], [facility], [address] [place], [address], Echocardiograph Tech: Clif Dunaway D.O., MPHQuest Collection Date/Time: [id number] Results Received Date/Time: [id number] Reported Date/Time: FASTING:NO CULTURE, URINE, ROUTINE SEE NOTE Comments: CULTURE, URINE, ROUTINE MICRO NUMBER: [id number] TEST STATUS: FINAL SPECIMEN SOURCE: URINE SPECIMEN QUALITY: ADEQUATE RESULT: Three or more organisms present, each greater than 10,000 cu/mL. May represent normal james contamination from external genitalia. No further testing is required.[KS]----- Plan of Care Name Dates Details Planned Observations Planned Goals not documented Planned Encounters Appointment; Provider: Jag Jenkins M.D. On 13:30 Appointment; Provider: Lanie Conn On 13:00 Appointment; Provider: Joelle Huff A.P.R.N. On 18-Jan-2017 13:00 Appointment; Provider: Uday Santana M.D. On 13-Jan-2017 10:00 Instructions Name Dates Details Instructions not documented Encounters Appointment; Uday Santana M.D. On Encounter Diagnosis: Problem not documented 10:00 Appointment; Kirsten Mckeon P.A. On Encounter Diagnosis: Problem not documented 14:00 Appointment; Joelle Huff A.P.R.N. On 10-Aug-2016 Encounter Diagnosis: Problem not documented 13:15 Appointment; Uday Santana M.D. On 11-Jul-2016 Encounter Diagnosis: Problem not documented 10:00 Appointment; Allegra Estrada A.P.R.N. On 23-Jun-2016 Encounter [...] Problem not documented 09:45 Appointment; Jenny Lopez, PZayAZay On 20-Feb-2015 Encounter Diagnosis: Problem not documented 09:30 Appointment; Uday Santana M.D. On 27-Jan-2015 Encounter Diagnosis: Problem not documented 13:15 Appointment; Juan Moon M.D. On 20-Jan-2015 Encounter Diagnosis: Problem not documented 14:30 Appointment; Uday Santana M.D. On 09-Jan-2015 Encounter Diagnosis: Problem not documented 10:00
--- OUTSIDE RECORDS SUMMARY | 2016-12-20 11:05 | External Medical Summary | Summary of Care ---
:1930 Author Name Nely Pantoja DPM Address [address] Unavailable [place], [place] [id number] Care Team Providers Name Role Phone Nely Pantoja DPM Unavailable Unavailable Max Salinas, Bandar Frye Unavailable Unavailable Zeenat Salinas, David Lane Unavailable Unavailable Uday Santana Unavailable Unavailable [facility]) Unavailable Unavailable [facility]) Unavailable Unavailable Unavailable Unavailable Unavailable Functional Status [...] (599.0, N39.0) Status: Active Elevated d-dimer (790.92, R79.1) Status: Active Chest pain (786.50, R07.9) Status: Active Ingrowing nail (703.0, L60.0) Status: Active Great toe pain, left (729.5, M79.675) Status: Active Medications Name Dates Details Latanoprost 0.005 % Ophthalmic Solution INSTILL 1 DROP IN BOTH EYES AT BEDTIME. Refills: 0 Max Dean.Uday Ardon Start 04-Sep-2013 Active Vitamin D3 2000 UNIT Oral Tablet TAKE ONE TAB PO DAILY Refills: 0 Max Salinas, Uday Portillo Start 20-Feb-2015 Active Aspirin 81 MG TABS Refills: 0 Domingo Epperson M.D. Start 10-Mar-2015 Active Cetirizine HCl - 10 MG Oral Tablet TAKE 1 TABLET BY MOUTH EVERY DAY FOR ALLERGY Quantity: 31 Refills: 3 Max Dean.Theodora., Uday Portillo Start Active Esomeprazole Magnesium 40 MG Oral Capsule Delayed Release TAKE 1 CAPSULE DAILY. Quantity: 31 Refills: 5 Max Dean.Theodora.Uday Start Active Vitamin C 500 MG Oral Tablet take 2 tabs daily Refills: 0 Max Dean.Reva, Uday Portillo Start 12-Sep-2011 Active Mapap 325 MG Oral Tablet TAKE 1 TO 2 TABLETS EVERY 4 HOURS NEEDED Refills: 0 Uday Santana M.D. Start 17-Jun-2015 Active Meloxicam 7.5 MG Oral Tablet TAKE 1 TABLET DAILY FOR ARTHRITIS Quantity: 31 Refills: 0 Max Dean.Reva, Uday Portillo Start Active Atorvastatin Calcium 20 MG Oral Tablet TAKE 1 TABLET DAILY AT BEDTIME Quantity: 31 Refills: 0 Max Dean.Uday Ardon Start 26-Feb-2015 Active Bisacodyl 10 MG Rectal Suppository INSERT 1 SUPPOSITORY RECTALLY ONCE DAILY. Refills: 0 Max Dean.Uday Ardon Start 12-Jan-2016 Active Mucinex 600 MG Oral Tablet Extended Release 12 Hour TAKE 1 TABLET TWICE DAILY NEEDED. Refills: 0 Max Gillis., Uday Portillo Start 12-Jan-2016 Active Triamcinolone Acetonide 0.1 % External Cream APPLY THIN FILM TO AFFECTED AREA(S) ONCE DAILY. Refills: 0 Max Dean.Theodora., Uday Bandar Start 12-Jan-2016 Active Milk of Magnesia 1200 MG/15ML Oral Suspension USE DIRECTED. Refills: 0 Max Dean.Theodora., Uday Bandar Start 08-Feb-2016 Active Tylenol 325 MG Oral Tablet TAKE 1 TO 2 TABLETS EVERY 4 HOURS NEEDED Refills: 0 Max Dean.Theodora., Udaysusan Portillo Start 08-Feb-2016 Active Pepto-Bismol 262 MG Oral Tablet Chewable USE DIRECTED. Refills: 0 Max Dean.Theodora., Uday Bandar Start 08-Feb-2016 Active Maalox Max 400-400-40 MG/5ML Oral Suspension USE DIRECTED. Refills: 0 Max Dean.Theodora., Uday Bandar Start 08-Feb-2016 Active Mylanta 200-200-20 MG/5ML Oral Suspension USE DIRECTED. Refills: 0 Max Gillis., Udaysusan Portillo Start 08-Feb-2016 Active Midodrine HCl - 5 MG Oral Tablet take 1 tablet two times daily Quantity: 60 Refills: 5 Start 16-Feb-2016 Active Hydrocodone-Acetaminophen 5-325 MG Oral Tablet take 1/2-1 tab po every 4-6 hours PRN Quantity: 15 Refills: 0 Max Salinas, Uday Portillo Start 04-Sep-2013 Active ZyrTEC Allergy 10 MG Oral Capsule TAKE ONCE DAILY NEEDED FOR ALLERGIES Refills: 0 Max Gillis., Udaysusan Portillo Start 12-Apr-2016 Active Ondansetron 4 MG Oral Tablet Dispersible TAKE 1 TABLET EVERY 6 HOURS NEEDED FOR NAUSEA/VOMITTING Quantity: 20 Refills: 0 Max Dean.Theodora., Uday Portillo Start 12-Apr-2016 Active Allergies and [...] 19-Mar-2007 History of Appendectomy History of Cholecystectomy CBC w/ Auto Diff 7150 Ordered: 12-Apr-2016 Comprehensive Metabolic Panel 1212 Ordered: 12-Apr-2016 LIPID PROFILE 1184 Ordered: 12-Apr-2016 THYROID STIM. HORMONE 3602 Ordered: 12-Apr-2016 CT CTA CHEST Ordered: 05-Apr-2016 Immunization Name Dates Details Pneumo (Pneumovax) on: 17-Feb-2005 Pneumo (Pneumovax) on: 28-Feb-2006 Influenza on: 25-Dec-2008 Prevnar 13 Intramuscular Suspension on: 09-Jan-2015 Lot #: [id number] Family History natural son Name Dates Details [...] smoker Vital Signs Date Test Result Details 12-Apr-2016 10:08 BP Systolic 120 mm[Hg] Status: Comments: Location: ; Position: BP Diastolic 78 mm[Hg] Status: Comments: Location: ; Position: Heart Rate 62 /min Status: Comments: Location: ; 05-Apr-2016 15:01 BP Systolic 160 mm[Hg] Status: Comments: Location: ; Position: BP Diastolic 84 mm[Hg] Status: Comments: Location: ; Position: Temperature 97.5 f Status: Heart Rate 84 /min Status: Comments: Location: ; Physical Findings 96 Status: Comments: O2 Saturation Results Date Description Value Details 05-Apr-2016 15:37 ECG/ EKG (Specialists) Electro CardioGram 15:40 CBC w/ Auto Diff 7150 WBC 10.5 K/uL Range: 4.5-11.0 RBC 4.00 mil/uL Range: 3.60-5.00 HGB 12.4 g/dL Range: 12.0-16.0 HCT 36.4 % Range: 36.0-48.0 MCV 91.1 fL Range: 80.0-99.0 MCH 31.1 pg Range: 27.3-32.5 MCHC 34.1 % Range: 32.0-36.0 RDW 14.2 % Range: 11.6-14.8 PLATELETS 232 K/uL Range: 150-400 MPV 6.0 fL Range: 6.0-11.0 %NEUTRO 76.1 % Range: 37.0-80.0 %LYMPHS 17.1 % Range: 13.0-50.0 %MONO 3.1 % Range: 0.0-12.0 %EOS 1.8 % Range: 0.0-7.0 %BASO 0.3 % Range: 0.0-2.5 %RIANNA 1.6 % Range: 0.0-5.0 NEUTRO 8.0 K/uL (Above high threshold) Range: 2.0-6.9 LYMPHS 1.8 K/uL Range: 0.6-3.4 MONOS 0.3 K/uL Range: 0.0-0.9 EOS 0.2 K/uL Range: 0.0-0.7 BASO 0.0 K/uL Range: 0.0-0.2 15:59 Urinalysis, Reflex to Microscopic or Culture PRN 8005 pH 6.5 Range: 5.0-7.5 SP GRAVITY 1.020 Range: 1.010-1.030 APPEARANCE CLEAR Range: Clear COLOR YELLOW Range: Straw-Yellow PROTEIN TRACE mg/dL Range: Negative-Trace GLUCOSE NEGATIVE mg/dL Range: Negative KETONE TRACE mg/dL (Abnormal) Range: Negative BILIRUB NEGATIVE Range: Negative BLOOD NEGATIVE Range: Negative UROBIL 2.0 EU/dL (Abnormal) Range: 0.2-1.0 NITRITE NEGATIVE Range: Negative LEUK LARGE (Abnormal) Range: Negative 15:59 Urine Microscopic UMIC WBC 21-50 /HPF (Abnormal) Range: 0-5 Comments: Specimen referred to Reference Lab for Culture----- RBC 0-2 /HPF Range: 0-2 BACTERIA 1+ /HPF (Abnormal) Range: Negative-Trace EPITH 3-5 /HPF Range: 0-10 16:00 BNP 3103 BNP 348.8 pg/mL (Above high threshold) Range: 0.0-100.0 16:08 Comprehensive Metabolic Panel 1212 SODIUM 142 mmol/L Range: 133-144 POTASSIUM 4.0 mmol/L Range: 3.5-5.1 CHLORIDE 103 mmol/L Range: 98-110 CARBON DIOXIDE 28.4 mmol/L Range: 23.0-33.0 ANION GAP 11 mmol/L Range: 6-16 BUN 23 mg/dL (Above high Range: 7-18 threshold) CREATININE, SERUM 1.09 mg/dL (Above high Range: 0.55-1.02 threshold) BUN:CREATININE RATIO 21 EST GFR, 57 ml/min (Below low Range: >60 threshold) EST GFR, NON-AFR CAMBODIAN 47 ml/min (Below low Range: >60 threshold) Comments: EST GFR is reported in ml/min per 1.73 m2 of body surface area. ----- GLUCOSE 107 mg/dL (Above high Range: 70-100 threshold) ALK PHOSPHATASE 117 U/L (Above high Range: 46-116 threshold) TOTAL BILIRUBIN 0.50 mg/dL Range: 0.20-1.00 AST 19 U/L Range: 8-35 ALT 17 U/L Range: 14-59 ALBUMIN 3.1 g/dL (Below low Range: 3.4-5.0 threshold) TOTAL PROTEIN 6.6 g/dL Range: 6.4-8.2 A/G RATIO 0.9 units (Below low Range: 1.0-1.8 threshold) CALCIUM 9.1 mg/dL Range: 8.5-10.1 16:08 AMYLASE 1250 AMYLASE 22 U/L (Below low threshold) Range: 25-115 16:08 Lipase 1275 LIPASE 117 U/L Range: 73-393 16:08 TROPONIN I 3451 Comments: Result called to Tiana Sawant on 04/05/2016 at 4:13 PMVerified by Repeat Analysis TROPONIN I 0.04 ng/mL Range: <0.10 Comments: <0.10 ng/ml=Negative for MI0.10-0.59 ng/ml=Indeterminate for MI0.60-1.50 ng/ml=Suggestive of [place]----- 16:11 D - DIMER 7505 Comments: Critical result called to Margie/[facility] Josep Cochran on 04/05/2016 at 4:16 PM (DDIME) D-DIMER 0.47 ug/mL DDU (High alert) Range: 0.00-0.26 Comments: For patients with low clinical probability of PE of DVT, D- Dimer results of 0.25 ug/mL DDU and less have an excellent negative predictive value in excluding a diagnosis of acute PE or EVT. However, a t hromboembolic event cannot be excluded when D-Dimer values are greater than 0.25 ug/mL DDU.----- 08-Apr-2016 13:46 URINE CULTURE [id number] Comments: [employer] performed at: [facility] [place], [address], Commercial Sales Director: Clif Dunaway D.O., MPHQuest Collection Date/Time: [id number] Results Received Date/Time: [id number] Reported Date /Time: [id number] QNS FOR WILKERSON TOP CULTURE TUBE FASTING:NOQuest Accession # : [id number] performed at: [facility], [place], [address], Commercial Sales Director: Clif Dunaway D.O., MPHQuest Collection Date/Time: [id number] Results Received Date/Time: [id number] Rep orted Date/Time: [id number] QNS FOR WILKERSON TOP CULTURE TUBE FASTING:NO CULTURE, URINE, ROUTINE SEE NOTE (Abnormal) Comments: CULTURE, URINE, ROUTINE MICRO NUMBER: [id number] TEST STATUS: FINAL SPECIMEN SOURCE : URINE SPECIMEN QUALITY: ADEQUATE RESULT: Greater than 100,000 CFU/mL of Enterococcus s pecies COMMENT: The preferred specimen for urine culture is preserved and shipped in a BD urine transport tube that may be obtained from your [employer] supplier. Culture of unpreserved urine may produce falsely elevated bacterial counts. Additional organism(s) less than 10,000 CFU/mL isolated. These organisms, commonly found on external and internal genitalia, are considered colonizers. No further testin g performed. Enterococcus sp. INT MEGHANN AMPICILLIN S <=2 NITROFURANTOIN S & lt;=16 VANCOMYCIN S 1S=Susceptible I=Intermediate R= Resistant *=Not TestedNR=Not Reported NN=See Therapy Comments[NC]----- Plan of Care Name Dates Details Planned Observations Planned Goals not documented Planned Encounters Appointment; Provider: Jag Jenkins M.D. On 15:00 Appointment; Provider: Uday Santana M.D. On 11-Jul-2016 10:00 Instructions Name Dates Details Instructions not documented Encounters Appointment; Uday Santana M.D. On 12-Apr-2016 Encounter [...] Problem not documented 15:50 Appointment; Jenny Lopez PZayAZay On 17-Sep-2015 Encounter Diagnosis: Problem not [...]
--- OUTSIDE RECORDS SUMMARY | 2016-12-20 11:05 | External Medical Summary | Summary of Care ---
:1930 Author Name Ciro Pizano Address [address], [place] [id number] Care Team Providers Name Role Phone Max Salinas, Bandar Frye Unavailable Unavailable David Epperson M.D. Unavailable Unavailable Uday Santana Primary Care Provider Unavailable [facility] ([place]) Referring Provider Unavailable Unavailable Unavailable Unavailable Functional [...] (780.2, R55) Status: Active PTCA Status: Active Ingrown toenail [...] Thoracic back pain (724.1, M54.6) Status: Active Depression (311, F32.9) Status: Active [...] Fluid 1152 Ordered:16-Mar-2015 FUNGUS CULTURE (OTHER SOURCE) N24020 Ordered:16-Mar-2015 MYCOBACTERIA ( AFB) CULTURE 5220 Ordered:16-Mar-2015 FLUID CULTURE (Aerobic) Ordered:16-Mar-2015 GLUCOSE 1100 Ordered:16-Mar-2015 TOTAL PROTEIN 1150 Ordered:16-Mar-2015 LDH 1140 Ordered:16-Mar-2015 ULTRASOUND THORACENTESIS SONO Ordered:10-Mar-2015 Immunization Name Dates Details Pneumo (Pneumovax) Administered on:17-Feb-2005 Pneumo (Pneumovax) Administered on:28-Feb-2006 Influenza Administered on:25-Dec-2008 Prevnar 13 Intramuscular Suspension Administered on:09-Jan-2015 Lot #: [id number] Family History natural son Name Dates Details [...] smoker Vital Signs Date Test Result Details 13-Apr-2015 11:35 BP Systolic 120 mm[Hg] Status: [...] /min Status: O2 SAT 95 % Status: Results Date Description Value Details 20-Mar-2015 14:11 XRay CHEST-PA & LAT Comments: Exam Date: 03/20/2015 13:37Dictation Date: 03/20/2015 14:11 X CHEST PA & LAT (Better) 14:32 CT CHEST WITHOUT IV CONTRAST Comments: Exam Date: 03/20/2015 14: 15Dictation Date: 03/20/2015 14:32 XC CHEST (Better) Plan of Care Planned [...] 08:30 Instructions Instructions not documented Encounters Appointment; Ciro Lewis On 13-Apr-2015 Encounter Diagnosis: [...]
--- OUTSIDE RECORDS SUMMARY | 2016-12-20 11:05 | External Medical Summary ---
:1930 Author Name GENERATED, SYSTEM Care Team Providers Name Role Phone MD JAMEL, JESSICA BAUMAN Primary Care Provider [phone] Reason For Visit Chief Complaint FALL, HIT HEAD Social History Functional Status Vital Signs Results DX Radiology from 11/06/2015 2:22 PMHUMERUS RIGHT 2 VIEWSHistory: arm pain . Priors: None. Findings: No acute fractures or subluxations are identified. There are mild degenerative changes of the glenohumeral and acromioclavicular joints. Impression: No acute osseous abnormality. Electronically signed by: Kaitlin Quezada MD Dictated: 11/06/2015 15:00 SHOULDER LEFT 2 VIEWS MINHistory: shoulder pain . lives in [facility]. stood up and fell backwards. hit back of head. left arm, gigi knee, right arm and back pain. Patient is on blood thinner. Patient is dizzy, light headed. Technique: 3 view shoulder Priors: None. Findings: There is no fracture. There are mild degenerative changes of the glenohumeral and acromioclavicular joints. Alignment is within normal limits. Impression: No acute osseous abnormality. Electronically signed by: Kaitlin Quezada MD Dictated: 11/06/2015 14:59CT Scan from 11/06/2015 2:34 PMCT CEREBRAL W/O CONTRASTHistory: head/neck pain . lives in [facility]. stood up and fell backwards. hit back of head. left arm, gigi knee, right arm and back pain. Patient is on blood thinner. Patient is dizzy, light headed. Priors: CT head dated 02/14/2014 Findings: Ventricles and Extra axial spaces: Normal in size and morphology for the patient's age. Hemorrhage: None. Cerebral parenchyma: There is decreased attenuation within the periventricular white matter, suggestive of chronic microvascular ischemic changes. Mass effect/midline shift: None. Brainstem/Cerebellum: Normal. Calvarium: Normal. Visualized Paranasal sinuses/Mastoids: Clear. Impression: No acute intracranial abnormality. Electronically signed by: Kaitlin Quezada MD Dictated: 11/06/2015 14:55 CT SPINE CERVICAL W/O CONTRASTHistory: head/neck pain . lives in [facility]. stood up and fell backwards. hit back of head. left arm, gigi knee, right arm and back pain. Patient is on blood thinner. Patient is dizzy, light headed. Priors: CT of the cervical spine dated 04/25/2007 Findings: Cervical alignment is within normal limits. There is no acute fracture. There is moderate degenerative disc and facet disease at C4-5 and C5-6 producing mild central spinal stenosis and moderate right neural foraminal stenosis at C4-5 and mild bilateral neural foraminal stenosis at C5-6. There also mild degenerative changes at C3-4 and C6-7 without significant spinal stenosis. The thyroid gland is partially visualized with multiple low-density lesions noted bilaterally. The lung apices are unremarkable. Impression: No evidence of acute fracture or subluxation. Vvqk-rp-yvjtfcop degenerative disc and facet disease, greatest at C4-5 and C5-6, as described above. Incompletely visualized bilateral thyroid nodules. Follow-up thyroid ultrasound could be obtained for further evaluation as clinically indicated. Electronically signed by: Kaitlin Quezada MD Dictated: 11/06/2015 14:58 Problems Encounter Diagnosis No relevant problems exist. Additional Problems Chest Pain Comment:Problem resolved by [facility] upon Discharge, Status: Resolved.Coronary Arteriosclerosis Comment:Problem resolved by [facility] upon Discharge, Status:Resolved.Fall Risk Comment:Problem resolved by [facility] upon Discharge, Status:Resolved.Infection Risk Comment:Problem resolved by [facility] upon Discharge, Status:Resolved.Mobility Impairment Comment:Problem resolved by [facility] upon Discharge, Status: Resolved.Skin Integrity Impairment Risk Comment:Problem resolved by [facility] upon Discharge, Status:Resolved. Encounters Encounter Diagnosis No relevant problems exist. Plan of Care Procedures Completed , on 12/22/2010 12:00 AMCompleted , on 12/22/2010 12:00 AMCompleted , on 12/22/2010 12:00 AMCompleted , on 05/02/2009 12:00 AM Immunizations No immunizations administered or ordered. Hospital Course Hospital Discharge Instructions Allergies, Adverse Reactions, Alerts raw pineapple (as Food allergen) causes Too acidic.cantalope (as Food allergen) causes Hives and eyes swell shut.Codeine causes Rash.Morphine causes Moderate confusion.Sulfa (Sulfonamide Antibiotics) causes Moderate Chills.Penicillins causes Moderate Rash.Latex Allergy has not been assessed.IV Contrast Allergy has not been assessed. Medication Medication reconciliation has not been performed.
--- OUTSIDE RECORDS SUMMARY | 2016-12-20 11:06 | External Medical Summary | Summary of Care ---
:1930 Author Name Lisa Reece Address [address], [place] [id number] Care Team Providers Name Role Phone Max Salinas, Bandar Frye Unavailable Unavailable David Epperson M.D. Unavailable Unavailable Uday Santana Primary Care Provider Unavailable [facility] ([place]) Referring Provider Unavailable Unavailable Unavailable Unavailable Functional [...] Right knee pain (719.46, M25.561) Status: Active Medications Name Dates Details Cetirizine [...] Refills: 0 Uday Santana M.D. Started 04-Sep-2013 ActiveEsomeprazole Magnesium 40 MG Oral Capsule Delayed Release TAKE 1 CAPSULE DAILY. Quantity: 30 Refills: 5 Uday Santana M.D. Started ActiveAtorvastatin Calcium 40 MG Oral Tablet TAKE 1/2 TABLET DAILY. Quantity: 15 Refills: 0 Uday Santana M.D. Started 24-Dec-2013 ActiveHydrocodone-Acetaminophen 5-325 MG Oral Tablet take 1/2 [...] Fluid 1152 Ordered:16-Mar-2015 FUNGUS CULTURE (OTHER SOURCE) [id number] Ordered:16-Mar-2015 MYCOBACTERIA ( AFB) CULTURE 5220 Ordered:16-Mar-2015 FLUID CULTURE (Aerobic) Ordered:16-Mar-2015 GLUCOSE 1100 Ordered:16-Mar-2015 TOTAL PROTEIN 1150 Ordered:16-Mar-2015 LDH 1140 Ordered:16-Mar-2015 XRay CHEST-PA & LAT Ordered:16-Mar-2015 ORTHO KNEE LEFT (3 VIEWS ONLY) Ordered:20-Jan-2015 CT CHEST WITHOUT IV CONTRAST Ordered:10-Mar-2015 ULTRASOUND THORACENTESIS SONO Ordered:10-Mar-2015 Immunization Name Dates Details Pneumo (Pneumovax) Administered on:17-Feb-2005 Pneumo (Pneumovax) Administered on:28-Feb-2006 Influenza Administered on:25-Dec-2008 Prevnar 13 Intramuscular Suspension Administered on:09-Jan-2015 Lot #: [id number] Family History natural son Name Dates Details [...] /min Status: Results Date Description Value Details 10-Mar-2015 [...] Range: >60 low threshold) EST GFR, NON-AFR CYMRO 36 ml/min (Below Range: >60 low threshold) [...] 11:30 Appointment; Provider: Schedule Radiology On 20-Mar-2015 15:00 Appointment; Provider: Schedule Radiology On 20-Mar-2015 14:00 Appointment; Provider: Uday Santana On 18-Mar-2015 14:30 Appointment; Provider: Schedule Radiology On 12-Feb-2015 14:20 Appointment; Provider: Schedule Radiology On 12-Feb-2015 14:20 Appointment; Provider: Schedule Radiology On 12-Feb-2015 14:00 Appointment; Provider: Barry Macdonald On 22-Dec-2010 11:45 Appointment; Provider: Bryan Melara On 03-May-2009 08:30 Instructions Instructions not documented Encounters Appointment; Juan Moon On 17-Mar-2015 Encounter Diagnosis: [...]
--- OUTSIDE RECORDS SUMMARY | 2016-12-20 11:06 | External Medical Summary | Summary of Care ---
:1930 Author Name Bandar Santana M.D. Address [address], [place] [id number] Care Team Providers Name Role Phone Bandar Santana M.D. Unavailable Unavailable David Epperson M.D. Unavailable Unavailable Uday Santana Primary Care Provider Unavailable [facility] ([place]) Referring Provider Unavailable Unavailable Unavailable Unavailable Functional [...] 81 MG Oral Tablet Refills: 0 Domingo pEperson M.D. Started 10-Mar-2015 ActiveBaclofen 10 MG Oral [...] Refills: 0 Uday Santana M.D. Started 17-Jun-2015 ActiveSertraline HCl - 50 MG Oral Tablet Take 1 tablet daily Quantity: 31 Refills: 0 Uday Santana M.D. Started 23-Dec-2011 Active Allergies and Adverse Reactions Name Dates [...] 13 Intramuscular Suspension Administered on:09-Jan-2015 Lot #: [id number] Family History natural son Name Dates Details [...] Uday Santana On 29-Jul-2015 11:00 Appointment; Provider: Schedule Radiology On 20-Mar-2015 [...] Encounter Diagnosis: Problem not documented 09:00 Appointment; Udya Santana On 18-Dec-2013 Encounter Diagnosis: Problem not documented 10:30 Appointment; Allegra Keating On Encounter Diagnosis: Problem not documented 09:45 Appointment; Uday Santana On 18-Sep-2013 Encounter Diagnosis: Problem not documented 09:45
--- OUTSIDE RECORDS SUMMARY | 2016-12-20 11:06 | External Medical Summary | Summary of Care ---
:1930 Author Name Bandar Santana M.D. Address [address], [place] [id number] Care Team Providers Name Role Phone Bandar Santana M.D. Unavailable Unavailable Uday Santana Primary Care Provider Unavailable [facility] ([place]) Referring Provider Unavailable Unavailable Unavailable Unavailable Functional [...] examination of adult (V70.0, Z00.00) Status: Active Arthritis (716.90, M19.90) Status: Active Hyperglycemia (790.29, R73.9) Status: Active Hematuria (599.70, R31.9) Status: Active Allergic rhinitis (477.9, J30.9) Status: Active Abnormal weight loss (783.21, R63.4) Status: Active Benign colon polyp (211.3, K63.5) Status: Active Left ankle pain (719.47, M25.572) Status: Active Joint pain, knee (719.46, M25.569) Status: Active Dyspnea (786.09, R06.00) Status: Active Depression (311, F32.9) Status: Active Edema (782.3, R60.9) Status: Active Anemia (285.9, D64.9) Status: Active Syncope (780.2, R55) Status: Active CAD (coronary atherosclerotic disease) (414.00, I25.10) Status: Active PTCA Status: Active Hyperlipidemia (272.4, E78.5) Status: Active Hypotension (458.9, I95.9) Status: Active Esophageal reflux (530.81, K21.9) Status: Active Ingrown toenail (703.0, L60.0) Status: Active NSAID long-term use (V58.64, Z79.1) Status: Active Medications Name Dates Details Cetirizine [...] Refills: 0 Uday Santana M.D. Started 24-Dec-2013 [id number] Tablet Bottle Esomeprazole Magnesium 40 MG Oral Capsule Delayed Release TAKE 1 CAPSULE DAILY. Quantity: 30 Refills: 5 Uday Santana M.D. Started ActiveNystatin 747115 UNIT/GM External Cream APPLY 2-3 TIMES DAILY [...]
--- OUTSIDE RECORDS SUMMARY | 2016-12-20 11:06 | External Medical Summary | Summary of Care ---
:1930 Author Name Kimmy Man Address [address] [place], [place] [id number] Care Team Providers Name Role Phone Max Salinas, Bandar Frye Unavailable Unavailable Red Salinas, Aspen Martinez Unavailable Unavailable Zeenat Salinas, O Domingo Unavailable Unavailable Uday Santana Unavailable Unavailable [facility] ([place]) Unavailable Unavailable [facility]) Unavailable Unavailable Unavailable Unavailable Unavailable Functional Status [...] M24.662) Status: Active Medications Name Dates Details Vitamin C 500 MG Oral Tablet take 2 tabs daily Refills: 0 Uday Santana M.D. Start 12-Sep-2011 Active Latanoprost 0.005 % Ophthalmic Solution INSTILL 1 DROP IN BOTH EYES AT BEDTIME. Refills: 0 Uday Santana M.D. Start 04-Sep-2013 Active Hydrocodone-Acetaminophen 5-325 MG Oral Tablet take 1/2-1 tab po every 4-6 hours PRN Quantity: 15 Refills: 0 Uday Santana M.D. Start 04-Sep-2013 Active Esomeprazole Magnesium 40 MG Oral Capsule Delayed Release TAKE 1 CAPSULE DAILY. Quantity: 31 Refills: 5 Max Dean.Reva, Uday Portillo Start Active Atorvastatin Calcium 20 MG Oral Tablet TAKE 1 TABLET DAILY AT BEDTIME Quantity: 31 Refills: 0 Uday Santana M.D. Start 26-Feb-2015 Active Bisacodyl 10 MG Rectal [...] Max Salinas, Uday Portillo Start 08-Feb-2016 Active Mapap 325 MG Oral Tablet TAKE 1 TO 2 TABLETS EVERY 4 HOURS NEEDED Refills: 0 Max Salinas, Uday Portillo Start 17-Jun-2015 Active Aspirin 81 MG TABS Refills: 0 Zeenat Salinas Domingo David Start 10-Mar-2015 Active Vitamin D3 2000 UNIT Oral Tablet TAKE ONE TAB PO DAILY Refills: 0 Max Salinas, Uday Bandar Start 20-Feb-2015 Active Meloxicam 7.5 MG Oral Tablet TAKE 1 TABLET DAILY FOR ARTHRITIS Quantity: 31 Refills: 0 Max Salinas, Uday Portillo Start Active Cetirizine HCl - 10 MG Oral Tablet TAKE 1 TABLET BY MOUTH EVERY DAY FOR ALLERGY Quantity: 31 Refills: 3 Max Salinas, Uday Portillo Start Active Midodrine HCl - 5 MG Oral [...] 13 Intramuscular Suspension on: 09-Jan-2015 Lot #: [id number] Family History natural son Name Dates Details [...] Comments: Location: ; Height 69 in Status: 08-Feb-2016 10:05 BP Systolic 124 mm[Hg] Status: Comments: Location: ; Position: BP Diastolic 80 mm[Hg] Status: Comments: Location: ; Position: Heart Rate 68 /min Status: Comments: Location: ; Weight 170 lb Status: Body Mass Index Calculated 25.1 kg/m2 Status: Body Surface Area Calculated 1.93 m2 Status: Results Date Description Value Details 19-Feb-2016 08:48 Urinalysis, Reflex to Microscopic or Culture PRN 8005 pH 5.5 Range: 5.0-7.5 SP GRAVITY 1.020 Range: 1.010-1.030 APPEARANCE CLEAR Range: Clear COLOR YELLOW Range: Straw-Yellow PROTEIN NEGATIVE mg/dL Range: Negative-Trace GLUCOSE NEGATIVE mg/dL Range: Negative KETONE NEGATIVE mg/dL Range: Negative BILIRUB NEGATIVE Range: Negative BLOOD NEGATIVE Range: Negative UROBIL 0.2 EU/dL Range: 0.2-1.0 NITRITE NEGATIVE Range: Negative LEUK NEGATIVE Range: Negative 24-Feb-2016 10:45 XRay HIP-Left Comments: Exam Date: 02/24/2016 09: 47Dictation Date: 02/24/2016 10:45 X HIP COMP (MIN 2V) LT 10:46 Xray PELVIS (AP ONLY) Comments: Exam Date: 02/24/2016 09:47Dictation Date: 02/24/2016 10:46 X PELVIS (AP ONLY) 10:47 Xray Spine Lumbar (2 Views Only) Comments: Exam Date: 02/24/2016 09: 46Dictation Date: 02/24/2016 10:47 X SPINE L-S (2V) Plan of Care Name Dates Details Planned Observations Planned Goals not documented Planned Encounters Appointment; Provider: Jag Jenkins M.D. On 15:00 Appointment; Provider: Uday Santana M.D. On 12-Apr-2016 10:00 Instructions Name Dates Details Instructions not documented Encounters Appointment; Allegra Estrada A.P.R.N. On 23-Feb-2016 Encounter [...] Problem not documented 09:30 Appointment; Ciro Lewis PMarin On 13-Apr-2015 Encounter Diagnosis: Problem not documented [...] Problem not documented 16:30 Appointment; Jenny Lopez, P.A. On 21-Aug-2014 Encounter Diagnosis: Problem not documented 13:15 Appointment; Jag Jenkins M.D. On 10-Jul-2014 Encounter Diagnosis: Problem not documented 14:30 Appointment; Uday Santana M.D. On 02-Jul-2014 Encounter Diagnosis: Problem not documented 09:00 Appointment; Uday Santana M.D. On 28-May-2014 Encounter Diagnosis: Problem not documented 09:30 Appointment; Jenny Lopez, P.AZay On 19-Mar-2014 Encounter Diagnosis: Problem not documented 13:00
--- OUTSIDE RECORDS SUMMARY | 2016-12-20 11:06 | External Medical Summary | Summary of Care ---
:1930 Author Name Bandar Santana M.D. Address Unavailable Unavailable , Care Team Providers Name Role Phone Max Salinas, Bandar Frye Unavailable Unavailable David Epperson M.D. Unavailable Unavailable Uday Santana Unavailable Unavailable [facility] ([place]) Unavailable Unavailable [facility] [place]) Unavailable Unavailable Unavailable Unavailable Unavailable Functional Status [...] Status: Active Constipation (564.00, K59.00) Status: Active Medications Name Dates Details Cetirizine HCl - 10 MG Oral Tablet TAKE 1 TABLET BY MOUTH EVERY DAY FOR ALLERGY Quantity: 31 Refills: 3 Uday Santana M.D. Active Vitamin C 500 MG Oral Tablet take 2 tabs daily Refills: 0 Uday Santana M.D. Start 12-Sep-2011 Active Latanoprost 0.005 % Ophthalmic Solution INSTILL 1 DROP IN BOTH EYES AT BEDTIME. Refills: 0 Max Salinas, Uday Portillo Start 04-Sep-2013 Active Hydrocodone-Acetaminophen 5-325 MG Oral Tablet take 1/2-1 tab po every 4-6 hours PRN Quantity: 15 Refills: 0 Max Salinas, Uday Portillo Start 04-Sep-2013 Active Meloxicam 7.5 MG Oral Tablet TAKE 1 TABLET DAILY FOR ARTHRITIS Quantity: 31 Refills: 0 Max Salinas, Uday Portillo Start Active Esomeprazole Magnesium 40 MG Oral Capsule Delayed Release TAKE 1 CAPSULE DAILY. Quantity: 31 Refills: 5 Max Salinas, Uday Portillo Start Active Vitamin D3 2000 [...] EVERY 4 HOURS NEEDED Refills: 0 Max M.D., Uday Portillo Start 08-Feb-2016 Active Pepto-Bismol 262 MG Oral Tablet Chewable USE DIRECTED. Refills: 0 Max M.D., Uday Portillo Start 08-Feb-2016 Active Maalox Max 400-400-40 MG/5ML Oral Suspension USE DIRECTED. Refills: 0 Max M.D., Uday Portillo Start 08-Feb-2016 Active Mylanta 200-200-20 MG/5ML Oral Suspension USE DIRECTED. Refills: 0 Max M.D., Uday Portillo Start 08-Feb-2016 Active Midodrine HCl [...] 13 Intramuscular Suspension on: 09-Jan-2015 Lot #: [id number] Family History natural son Name Dates Details [...] smoker Vital Signs Date Test Result Details 08-Feb-2016 10:05 BP Systolic 124 mm[Hg] Status: Comments: Location: ; Position: BP Diastolic 80 mm[Hg] Status: Comments: Location: ; Position: Heart Rate 68 /min Status: Comments: Location: ; Weight 170 lb Status: Body Mass Index Calculated 25.1 kg/m2 Status: Body Surface Area Calculated 1.93 m2 Status: 03-Feb-2016 15:01 BP Systolic 167 mm[Hg] Status: Comments: Location: ; Position: BP Diastolic 75 mm[Hg] Status: Comments: Location: ; Position: Temperature 97.9 f Status: Heart Rate 91 /min Status: Comments: Location: ; Physical Findings 98 Status: Comments: O2 Saturation Results Date Description Value Details 03-Feb-2016 16:13 Urinalysis, Reflex to Microscopic or Culture PRN 8005 pH 5.5 Range: 5.0-7.5 SP GRAVITY 1.020 Range: 1.010-1.030 APPEARANCE CLOUDY (Abnormal) Range: Clear COLOR YELLOW Range: Straw-Yellow PROTEIN NEGATIVE mg/dL Range: Negative-Trace GLUCOSE NEGATIVE mg/dL Range: Negative KETONE NEGATIVE mg/dL Range: Negative BILIRUB NEGATIVE Range: Negative BLOOD SMALL (Abnormal) Range: Negative UROBIL 0.2 EU/dL Range: 0.2-1.0 NITRITE NEGATIVE Range: Negative LEUK LARGE (Abnormal) Range: Negative 16:15 Urine Microscopic UMIC WBC TNTC /HPF (Abnormal) Range: 0-5 Comments: Specimen referred to Reference Lab for Culture----- RBC 3-5 /HPF (Abnormal) Range: 0-2 BACTERIA 3+ /HPF (Abnormal) Range: Negative-Trace Comments: Specimen referred to Reference Lab for Culture----- EPITH 3-5 /HPF Range: 0-10 16:18 CBC w/ Auto Diff 7150 WBC 9.3 K/uL Range: 4.5-11.0 RBC 4.18 mil/uL Range: 3.60-5.00 HGB 12.7 g/dL Range: 12.0-16.0 HCT 39.1 % Range: 36.0-48.0 MCV 93.6 fL Range: 80.0-99.0 MCH 30.4 pg Range: 27.3-32.5 MCHC 32.5 % Range: 32.0-36.0 RDW 13.7 % Range: 11.6-14.8 PLATELETS 276 K/uL Range: 150-400 MPV 7.0 fL Range: 6.0-11.0 %NEUTRO 69.9 % Range: 37.0-80.0 %LYMPHS 20.0 % Range: 13.0-50.0 %MONO 5.8 % Range: 0.0-12.0 %EOS 2.1 % Range: 0.0-7.0 %BASO 0.3 % Range: 0.0-2.5 %RIANNA 1.8 % Range: 0.0-5.0 NEUTRO 6.5 K/uL Range: 2.0-6.9 LYMPHS 1.9 K/uL Range: 0.6-3.4 MONOS 0.5 K/uL Range: 0.0-0.9 EOS 0.2 K/uL Range: 0.0-0.7 BASO 0.0 K/uL Range: 0.0-0.2 16:25 CT AB/ PEL WITHOUT IV CONTRAST (FOR Comments: Exam Date: 02/03/2016 15: 52Dictation Date: 02/03/2016 16:25 KIDNEY STONE) XC ABD PEL W/O (RENAL STONE) 16:32 Comprehensive Metabolic Panel 1212 SODIUM 140 mmol/L Range: 133-144 POTASSIUM 4.3 mmol/L Range: 3.5-5.1 CHLORIDE 104 mmol/L Range: 98-110 CARBON DIOXIDE 28.1 mmol/L Range: 23.0-33.0 ANION GAP 8 mmol/L Range: 6-16 BUN 19 mg/dL (Above high Range: 7-18 threshold) CREATININE, SERUM 1.03 mg/dL (Above high Range: 0.55-1.02 threshold) BUN:CREATININE RATIO 18 EST GFR, >60 ml/min Range: >60 EST GFR, NON-AFR CITIZEN OF [place] 51 ml/min (Below low Range: >60 threshold) Comments: EST GFR is reported in ml/min per 1.73 m2 of body surface area. ----- GLUCOSE 112 mg/dL (Above high Range: 70-100 threshold) ALK PHOSPHATASE 108 U/L Range: 46-116 TOTAL BILIRUBIN 0.30 mg/dL Range: 0.20-1.00 AST 20 U/L Range: 8-35 ALT 28 U/L Range: 14-59 ALBUMIN 3.3 g/dL (Below low Range: 3.4-5.0 threshold) TOTAL PROTEIN 7.0 g/dL Range: 6.4-8.2 A/G RATIO 0.9 units (Below low Range: 1.0-1.8 threshold) CALCIUM 9.2 mg/dL Range: 8.5-10.1 16:32 AMYLASE 1250 AMYLASE 34 U/L Range: 25-115 16:32 Lipase 1275 LIPASE 147 U/L Range: 73-393 05-Feb-2016 08:21 URINE CULTURE [id number] Comments: CDP performed at: [facility] [employer], [address] [facility], [place], [address], [employer] Consultant: Clif Dunaway D.O., MPHQuest Collection Date/Time: [id number] Results Received Date/Time: [id number] Reported Date /Time: [id number] CULTURE, URINE, ROUTINE SEE NOTE Comments: Specimen cup submitted due to low sample volume. CULTURE, URINE, ROUTINE MICRO NUMBER: [id number] TEST STATUS: FINAL SPECIMEN SOURCE: NOT GIVEN SPECIMEN QUALITY: ADEQUATE RESULT: Three or more organisms present, each greater than 10,000 cu/mL. May represent normal james contamination from external genitalia. No further testing is required. COMMENT: The preferred specimen for urine culture is preserved and shipped in a BD urine transport tube that may be obtaine d from your [employer] supplier. Culture of unpreserved urine may produce falsely elevated bacterial counts.[NC]----- 19-Feb-2016 08:48 Urinalysis, Reflex to Microscopic or Culture PRN 8005 pH 5.5 Range: 5.0-7.5 SP GRAVITY 1.020 Range: 1.010-1.030 APPEARANCE CLEAR Range: Clear COLOR YELLOW Range: Straw-Yellow PROTEIN NEGATIVE mg/dL Range: Negative-Trace GLUCOSE NEGATIVE mg/dL Range: Negative KETONE NEGATIVE mg/dL Range: Negative BILIRUB NEGATIVE Range: Negative BLOOD NEGATIVE Range: Negative UROBIL 0.2 EU/dL Range: 0.2-1.0 NITRITE NEGATIVE Range: Negative LEUK NEGATIVE Range: Negative Plan of Care Name Dates Details Planned Observations Planned Goals not documented Planned Encounters Appointment; Provider: Jag Jenkins M.D. On 15:00 Appointment; Provider: Uday Santana M.D. On 12-Apr-2016 10:00 Interventions Provided Medication ChangesHydrocodone-Acetaminophen 5-325 MG Oral Tablet - Renew Instructions Name Dates Details Instructions not documented Encounters Appointment; Uday Santana M.D. On 08-Feb-2016 Encounter [...] Problem not documented 09:30 Appointment; Ciro Lewis P.Deborah On 13-Apr-2015 Encounter Diagnosis: Problem not documented [...]
--- OUTSIDE RECORDS SUMMARY | 2016-12-20 11:07 | External Medical Summary | Summary of Care ---
:1930 Author Name Allegra Estrada APRN Address [address] [place]available [place], [place] [id number] Care Team Providers Name Role Phone Allegra Estrada APRN Unavailable Unavailable Max Salinas, Bandar Frye Unavailable Unavailable Zeenat Salinas, David Lane Unavailable Unavailable Uday Santana Unavailable Unavailable [facility]) Unavailable Unavailable [facility]) Unavailable Unavailable Unavailable Unavailable Unavailable Functional Status [...] Active Ingrowing nail (703.0, L60.0) Status: Active Shortness of breath (786.05, R06.02) Status: Active Left knee pain (719.46, M25.562) Status: Active Depression (311, F32.9) Status: Active Exposure to influenza (V01.79, Z20.828) Status: Active Medications Name Dates Details Cetirizine HCl - 10 MG Oral Tablet TAKE 1 TABLET BY MOUTH EVERY DAY FOR ALLERGY Quantity: 31 Refills: 3 Uday Santana M.D. Start Active Latanoprost 0.005 % Ophthalmic Solution [...] 0 Domingo Epperson M.D. Start 10-Mar-2015 Active Esomeprazole Magnesium 40 MG Oral Capsule Delayed Release TAKE 1 CAPSULE DAILY. Quantity: 31 Refills: 5 Max Dean.Uday Ardon Start Active Vitamin C 500 MG Oral Tablet take 2 tabs daily Refills: 0 Uday Santana M.D. Start 12-Sep-2011 Active Mapap 325 MG Oral Tablet TAKE 1 TO 2 TABLETS EVERY 4 HOURS NEEDED Refills: 0 Uday Santana M.D. Start 17-Jun-2015 Active Atorvastatin Calcium 20 MG Oral Tablet TAKE 1 TABLET DAILY AT BEDTIME Quantity: 31 Refills: 0 Max Salinas, Uday Portillo Start 26-Feb-2015 Active Bisacodyl 10 MG Rectal Suppository INSERT 1 SUPPOSITORY RECTALLY ONCE DAILY. Refills: 0 Uday Santana M.D. Start 12-Jan-2016 Active Mucinex 600 MG Oral Tablet Extended Release 12 Hour TAKE 1 TABLET TWICE DAILY NEEDED. Refills: 0 Uday Santaan M.D. Start 12-Jan-2016 Active Triamcinolone Acetonide 0.1 [...] FOR ALLERGIES Refills: 0 Max Salinas, Uday Portillo Start 12-Apr-2016 Active Ondansetron 4 MG [...] 13 Intramuscular Suspension on: 09-Jan-2015 Lot #: [id number] Family History natural son Name Dates Details [...] Diagnosis: Problem not documented 09:45 Appointment; Uday Santnaa M.D. On 12-Apr-2016 Encounter Diagnosis: Problem not [...]
--- OUTSIDE RECORDS SUMMARY | 2016-12-20 11:07 | External Medical Summary | Summary of Care ---
:1930 Author Name Bandar Santana M.D. Address Unavailable Unavailable , Care Team Providers Name Role Phone Max Salinas, Bandar Frye Unavailable Unavailable David Epperson M.D. Unavailable Unavailable Uday Santana Unavailable Unavailable [facility] [place] Un[place] Unavailable [facility] [place] Unavailable Unavailable Unavailable Unavailable Unavailable [...] Quantity: 15 Refills: 0 Uday Santana M.D. Bandar Start 04-Sep-2013 Active Meloxicam 7.5 MG Oral [...] TIMES DAILY. Quantity: 90 Refills: 1 Max Salinas, Uday Portillo Start 25-Feb-2015 Active Atorvastatin Calcium [...] 13 Intramuscular Suspension on: 09-Jan-2015 Lot #: [id number] Family History natural son Name Dates Details [...] >60 ml/min Range: >60 EST GFR, NON-AFR [place]PAL[place] 56 ml/min (Below low Range: >60 threshold) [...] documented Encounters Appointment; Uday Santana M.D. On 12-Jan-2016 Encounter [...]
--- OUTSIDE RECORDS SUMMARY | 2016-12-20 11:07 | External Medical Summary ---
:1930 Author Name GENERATED, SYSTEM Care Team Providers Name Role Phone MD JAMEL, JESSICA BAUMAN Primary Care Provider [phone] Reason For Visit Reason for Visit from 03/12/2015 1:48 PM:Pt Stated Reason for Adm : chest/back pain Chief Complaint CHEST PAIN Social History Social History from 03/14/2015 1:38 PM:Tobacco Use? : Never SmokerSocial History from 03/12/2015 1:48 PM:Tobacco Use? : Never Smoker Functional Status Functional Status from 03/14/2015 8:04 AM:LOC : AlertOriented To : Person,Place, Time,EventWeight Bearing Status : FullAssist Level : Partial# Assists : 1Functional Status from 03/13/2015 8:08 PM:LOC : AlertOriented To : Person,Place ,TimeWeight Bearing Status : FullAssist Level : Partial# Assists : 1Functional Status from 03/13/2015 8:26 AM:LOC : AlertOriented To : Person,Place,TimeWeight Bearing Status [...] Vital Signs Hospital Vital Signs from 03/14/2015 11:04 AM:Height : 5/4 ft,inTemperature : 98.7 FPulse : 73Respirations : 20BP : 151/67Hospital Vital Signs from 2014 8:04 AM:Heart Rate : 65Hospital Vital Signs from 03/14/2015 6:57 AM:Height : 5/4 ft,inTemperature : 98.0 FPulse : 67Respirations : 18BP : 156/70Hospital Vital Signs from 03/14/2015 4:40 AM:Weight : 77.7/ kgHeight : 5/4 ft,inHospital Vital Signs from 03/13/2015 10:35 PM:Height : 5/4 ft,inTemperature : 98.7 FPulse : 66Respirations : 20BP : 150/67Hospital Vital Signs from 03/13/2015 8: 08 PM:Heart Rate : 61Hospital Vital Signs from 03/13/2015 7:22 PM:Height : 5/4 ft,inTemperature : 99.0 FPulse : 61Respirations : 20BP : 140/65Hospital Vital Signs from 03/13/2015 3:09 PM:Height : 5/4 ft,inTemperature : 98.0 FPulse : 70Respirations : 20BP : 146/67Hospital Vital Signs from 03/13/2015 9:06 AM: Height : 5/4 ft,inHospital Vital Signs from 03/13/2015 8:26 AM:Heart Rate : 70Hospital Vital Signs from 03/13/2015 7:23 AM:Height : 5/4 ft,inTemperature : 98.2 FPulse : 72Respirations : 18BP : 141/74Hospital Vital Signs from 2014 2:58 AM:Weight : 79.0/ kgHeight : 5/4 ft,inTemperature : 97.2 FPulse : 68Respirations : 20BP : 145/64Hospital Vital Signs from 03/12/2015 10:51 PM: Height : 5/4 ft,inTemperature : 97.2 FPulse : 66Respirations : 20BP : 173/ 99Hospital Vital Signs from 03/12/2015 8:17 PM:Heart Rate : 62Hospital Vital Signs from 03/12/2015 6:47 PM:Height : 5/4 ft,inTemperature : 98.7 FPulse : 70Respirations : 20BP : 137/64Hospital Vital Signs from 03/12/2015 4:06 PM: Heart Rate : 69Hospital Vital Signs from 03/12/2015 3:46 PM:Height : 5/4 ft, inTemperature : 98.6 FPulse : 73Respirations : 20BP : 131/60Hospital Vital Signs from 03/12/2015 1:48 PM:Weight : 77.1/ kgHeight : 5/4 ft,inHospital Vital Signs from 03/12/2015 1:00 PM:Weight : 77.1/ kgHeight : 5/4 ft,inTemperature : 97.5 FPulse : 75Respirations : 20BP : 158/64 Results Chemistry from 03/13/2015 6:47 [id number] MMOL/L (136-145 MMOL/L) POTASSIUM4.9 MMOL/L (3.5-5.1 MMOL/L) KKPEYECB165 MMOL/L H (98-107 MMOL/L) YZR795.0 MMOL/L (21.0-32.0 MMOL/L) *ANION GAP8.0 MMOL/L (8.0-16.0 MMOL/L) BUN20 MG/DL H (7-18 MG/DL) CREATININE1.00 MG/DL (0.55-1.02 MG/DL) *BUN/CREATININE RATIO20.0 H (9.1-17.0 ) VPHGWUQ42 MG/DL (65-99 MG/DL) *GFR EST NON AFR JRTKOFOW34 ML/MIN *GFRA EST AFR AMER59 ML/MIN CALCIUM8.8 MG/DL (8.5-10.1 MG/DL) CMXGIQZAUFO178 MG/DL (50-199 MG/DL) VWPENKLTHYKCS90 MG/DL (0-149 MG/DL) HDL TMRASTNVTAY85 MG/DL (40-60 MG/DL) *LDL (CALCULATED) CHOL43 MG/DL (0-99 MG/DL)Chemistry from 03/13/2015 12:10 AMTROPONIN-I<0.04 (SEE BELOW )Chemistry from 03/12/2015 8:10 PMTROPONIN-I< 0.04 (SEE BELOW )Hematology from 03/13/2015 6:47 AMWBC10.4 X10e3/UL (3.6-11.2 X10e3/UL) RBC3.95 X10e6/UL (3.63-4.92 X10e6/UL) VYPDKIMAAI67.8 G/DL (11.0-14.3 G/DL) ZHDMVOTHJI53.3 % (31.2-41.9 %) *MCV92.0 FL (79.0-98.0 FL) *MCH29.9 PG (27.0-33.0 PG) *MCHC32.5 G/DL (32.0-36.0 G/DL) *RDW13.2 % (12.3-17.0 %) RMCISMNA495 X10e3/UL (159-386 X10e3/UL) *MPV7.7 FL (7.4-10.4 FL) AUTOMATED DIFFPERFORMED SEGS69.5 % *NCJKSRTCYRJ02.3 % *MONOCYTES6.3 % *EOSINOPHILS2.8 % *BASOPHILS1.1 % [...] Integrity Impairment Risk Status:Active. Plan of Care Treatment Plan from 03/13/2015 7:23 AM:Care Management Note [...] morning) Specific Discharge Teaching Instructions provided: : No Allergies, Adverse Reactions, Alerts raw pineapple (as Food allergen) causes Too acidic.cantalope (as Food allergen) causes Hives and eyes swell shut.Codeine causes Rash.Morphine causes Moderate confusion.Sulfa (Sulfonamide Antibiotics) causes Moderate Chills.Penicillins causes Moderate Rash.No Latex Allergy.No IV Contrast Allergy. Medication It is the responsibility of the patient or patient industrial relations representative to confirm the list of medicationswith [...]
--- OUTSIDE RECORDS SUMMARY | 2016-12-20 11:07 | External Medical Summary | Summary of Care ---
:1930 Author Name Bandar Santana M.D. Address Unavailable Unavailable , Care Team Providers Name Role Phone Max Salinas, Bandar Frye Unavailable Unavailable David Epperson M.D. Unavailable Unavailable Uday Santana Unavailable Unavailable [facility] ([place]) Unavailable Unavailable [facility] ([place]) Unavailable Unavailable Unavailable Unavailable Unavailable Functional Status Functional Status Health Issues Name Dates Details Functional status health issues are not documented Status: Cognitive Status Health Issues Name Dates Details Cognitive status health issues are not documented Status: Problems Name Dates Details Do Not Resuscitate Form In Chart Active Status: Active PTCA Status: Active Elevated d-dimer (790.92, R79.89) Status: Active Visit for periodic health examination (V70.0, Z00.00) Status: Active Pes anserine bursitis (726.61, M70.50) Status: Active 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, 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) Status: Active Encounter for screening mammogram for malignant neoplasm of breast (V76.12, Z12.31) Status: Active Low back pain (724.2, M54.5) Status: Active Knee pain, left anterior (719.46, M25.562) Status: Active Hip pain, acute, right (719.45, M25.551) Status: Active Great toe pain, left (729.5, M79.675) Status: Active Shortness of breath (786.05, R06.02) Status: Active Dizziness (780.4, R42) Status: Active Abnormal weight loss (783.21, R63.4) Status: Active De Quervain's tenosynovitis (727.04, M65.4) Status: Active Osteoporosis (733.00, M81.0) Status: Active Anemia (285.9, D64.9) Status: Active Anxiety (300.00, F41.9) Status: Active Arthritis (716.90, M19.90) Status: Active Depression (311, F32.9) Status: Active Dermatitis (692.9, L30.9) Status: Active Edema (782.3, R60.9) Status: Active Hypercholesterolemia (272.0, E78.00) Status: Active Hyperglycemia (790.29, R73.9) Status: Active Hyperlipidemia (272.4, E78.5) Status: Active Menopause (627.2, Z78.0) Status: Active Diastolic dysfunction (429.9, I51.9) Status: Active Syncope (780.2, R55) Status: Active Gastroesophageal reflux disease without esophagitis (530.81, K21.9) Status: Active Exposure to influenza (V01.79, Z20.828) Status: Active Left knee pain (719.46, M25.562) Status: Active Right knee pain (719.46, M25.561) Status: Active Left shoulder pain (719.41, M25.512) Status: Active Left ankle pain (719.47, M25.572) Status: Active Left elbow pain (719.42, M25.522) Status: Active UTI (urinary tract infection) (599.0, N39.0) Status: Active CAD (coronary atherosclerotic disease) (414.00, I25.10) Status: Active Rib pain (786.50, R07.81) Status: Active NSAID long-term use (V58.64, Z79.1) Status: Active Orthopedic aftercare for joint replacement (V54.81, Z47.1) Status: Active Allergic rhinitis (477.9, J30.9) Status: Active Pulmonary hypertension, mild (416.8, I27.2) Status: Active Hypotension (458.9, I95.9) Status: Active Nausea and/or vomiting (787.01, R11.2) Status: Active Constipation (564.00, K59.00) Status: Active Pain, abdominal, epigastric (789.06, R10.13) Status: Active Ingrowing nail (703.0, L60.0) Status: Active 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 Refills: 0 Max Gillis., Uday Deckery Start 12-Jan-2016 Active Triamcinolone Acetonide 0.1 % External Cream APPLY THIN FILM TO AFFECTED AREA(S) ONCE DAILY. Refills: 0 Max Dean.Theodora., Uday Bandar Start 12-Jan-2016 Active Milk of Magnesia 1200 MG/15ML Oral Suspension USE DIRECTED. Refills: 0 Max Dean.Theodora., Uday Bandar Start 08-Feb-2016 Active Tylenol 325 MG Oral Tablet TAKE 1 TO 2 TABLETS EVERY 4 HOURS NEEDED [facility]: [facility] Active Pepto-Bismol 262 MG Oral Tablet Chewable USE DIRECTED. Refills: 0 [facility] 08-Feb-2016 Active Maalox Max 400-400-40 MG/5ML Oral Suspension USE DIRECTED. Refills: 0 [facility] 08-Feb-2016 Active Mylanta 200-200-20 MG/5ML Oral Suspension USE DIRECTED. Refills: 0 Max Salinas, Uday Bandar Start 08-Feb-2016 Active Midodrine HCl - 5 [...] NAUSEA/VOMITTING Quantity: 20 Refills: 0 Max Dean.Theodora., [facility] Start 12-Apr-2016 Active Allergies and Adverse Reactions [...] Appendectomy History of Cholecystectomy History of Total Hip Replacement History of Cath Stent Placement History of Cath Stent Placement History of Complete Colonoscopy Completed: 19-Mar-2007 History of Total Knee Arthroplasty History of Neuroplasty Decompression Median Nerve At Carpal Tunnel History of Total Abdominal Hysterectomy With Removal Of Both Ovaries History of Cystoscopy With Ureteral Catheterization Completed: 22-Dec-2010 History of Cystoscopy With Biopsy Completed: 22-Dec-2010 History of Diagnostic Esophagogastroduodenoscopy Completed: 03-May-2009 History of Spinal Diskectomy Procedures not documented Immunization Name Dates Details Pneumo (Pneumovax) on: 17-Feb-2005 Pneumo (Pneumovax) on: 28-Feb-2006 Influenza on: 25-Dec-2008 Prevnar 13 Intramuscular Suspension on: 09-Jan-2015 Lot #: [id number] Family History natural son Name Dates Details [...] smoker Vital Signs Date Test Result Details 11-Jul-2016 10:21 BP Systolic 128 mm[Hg] Status: Comments: Location: ; Position: BP Diastolic 64 mm[Hg] Status: Comments: Location: ; Position: Heart Rate 84 /min Status: Comments: Location: ; Weight 154 lb Status: Body Mass Index Calculated 22.74 kg/m2 Status: Body Surface Area Calculated 1.85 m2 Status: 23-Jun-2016 07:46 BP Systolic 122 mm[Hg] Status: Comments: Location: ; Position: BP Diastolic 64 mm[Hg] Status: Comments: Location: ; Position: Temperature 97.7 f Status: Heart Rate 87 /min Status: Comments: Location: ; Physical Findings 20 Status: Comments: Respiration Weight 153.5 lb Status: Body Mass Index Calculated 22.67 kg/m2 Status: Body Surface Area Calculated 1.85 m2 Status: Results Date Description Value Details 11-Jul-2016 09:35 CBC w/ Auto Diff 7150 Comments: Fastin hours WBC 9.1 K/uL Range: 4.5-11.0 RBC 4.07 mil/uL Range: 3.60-5.00 HGB 12.8 g/dL Range: 12.0-16.0 HCT 38.9 % Range: 36.0-48.0 MCV 95.4 fL Range: 80.0-99.0 MCH 31.4 pg Range: 27.3-32.5 MCHC 32.9 % Range: 32.0-36.0 RDW 14.6 % Range: 11.6-14.8 PLATELETS 205 K/uL Range: 150-400 MPV 6.8 fL Range: 6.0-11.0 %NEUTRO 71.1 % Range: 37.0-80.0 %LYMPHS 20.7 % Range: 13.0-50.0 %MONO 3.9 % Range: 0.0-12.0 %EOS 2.4 % Range: 0.0-7.0 %BASO 0.3 % Range: 0.0-2.5 %RIANNA 1.5 % Range: 0.0-5.0 NEUTRO 6.5 K/uL Range: 2.0-6.9 LYMPHS 1.9 K/uL Range: 0.6-3.4 MONOS 0.4 K/uL Range: 0.0-0.9 EOS 0.2 K/uL Range: 0.0-0.7 BASO 0.0 K/uL Range: 0.0-0.2 10:01 Comprehensive Metabolic Panel 1212 Comments: Fastin hours SODIUM 143 mmol/L Range: 133-144 POTASSIUM 4.3 mmol/L Range: 3.5-5.1 CHLORIDE 107 mmol/L Range: 98-110 CARBON DIOXIDE 27.6 mmol/L Range: 23.0-33.0 ANION GAP 8 mmol/L Range: 6-16 BUN 26 mg/dL (Above high Range: 7-18 threshold) CREATININE, SERUM 0.98 mg/dL Range: 0.55-1.02 BUN:CREATININE RATIO 27 EST GFR, >60 ml/min Range: >60 EST GFR, NON-AFR GUINEAN 54 ml/min (Below low Range: >60 threshold) Comments: EST GFR is reported in ml/min per 1.73 m2 of body surface area. ----- GLUCOSE 92 mg/dL Range: 70-100 ALK PHOSPHATASE 102 U/L Range: 46-116 TOTAL BILIRUBIN 0.60 mg/dL Range: 0.20-1.00 AST 22 U/L Range: 8-35 ALT 33 U/L Range: 14-59 ALBUMIN 3.3 g/dL (Below low Range: 3.4-5.0 threshold) TOTAL PROTEIN 7.2 g/dL Range: 6.4-8.2 A/G RATIO 0.8 units (Below low Range: 1.0-1.8 threshold) CALCIUM 9.5 mg/dL Range: 8.5-10.1 10:01 LIPID PROFILE 1184 Comments: Fastin hours CHOLESTEROL 138 mg/dL Range: <200 TRIGLYCERIDES 95 mg/dL Range: 30-200 HDL Cholesterol 57 mg/dL Range: >39 NON HDL CHOLESTEROL 81 CARDIAC RSK FACTOR 2.4 units (Below low threshold) Range: 4.4-5.0 LDL - CALCULATED 62 mg/dL Range: 0-130 10:38 THYROID STIM. HORMONE 3602 Comments: Fastin hours THYROID STIM. HORMONE 1.246 uIU/mL Range: 0.550-4.780 Comments: No established reference ranges for infants and children &lt ;2 years of age----- Plan of Care Name Dates Details Planned Observations Planned Goals not documented Planned Encounters Appointment; Provider: Jag Jenkins M.D. On 15:00 Appointment; Provider: Uday Santana M.D. On 10:00 Appointment; Provider: Lanie Conn On 14:00 Instructions Name Dates Details Instructions not documented [...] Problem not documented 15:50 Appointment; Jenny Lopez PMarin On 17-Sep-2015 Encounter Diagnosis: Problem not documented [...]
--- OUTSIDE RECORDS SUMMARY | 2016-12-20 11:08 | External Medical Summary | Summary of Care ---
:1930 Author Name David Epperson M.D. Address [address], [place] [id number] Care Team Providers Name Role Phone Max Salinas, Bandar Frye Unavailable Unavailable Uday Santana Primary Care Provider Unavailable [facility] ([place]) Referring Provider Unavailable Unavailable Unavailable [...] Spinal Diskectomy History of Complete Colonoscopy Completed:19-Mar-2007 ECG/ EKG (Specialists) Ordered:05-Mar-2015 Comprehensive Metabolic Panel 1212 Ordered:05-Mar-2015 THYROID STIM. HORMONE 3602 Ordered:05-Mar-2015 ORTHO KNEE LEFT (3 VIEWS ONLY) Ordered:20-Jan-2015 Immunization Name Dates Details Pneumo (Pneumovax) Administered on:17-Feb-2005 Pneumo (Pneumovax) Administered on:28-Feb-2006 Influenza Administered on:25-Dec-2008 Prevnar 13 Intramuscular Suspension Administered on:09-Jan-2015 Lot #: [id number] Family History natural son Name Dates Details [...] K/uL (Better) Range: 4.5-11.0 RBC 4.09 mil/uL (Better) Range: 3.60-5.00 HGB 12.3 g/dL (Better) Range: 12.0-16.0 HCT 38.7 % (Better) Range: 36.0-48.0 MCV [...] 0.0-0.7 BASO 0.1 K/uL (Better) Range: 0.0-0.2 Plan of Care Planned Observations Name Dates [...]
--- OUTSIDE RECORDS SUMMARY | 2016-12-20 11:08 | External Medical Summary | Summary of Care ---
:1930 Author Name Kimmy Jenkins M.D. Address Unavailable Unavailable , Care Team Providers Name Role Phone Max Salinas, Bandar Frye Unavailable Unavailable David Epperson M.D. Unavailable Unavailable Uday Santana Primary Care Provider Unavailable [facility] ([place]) Referring Provider Unavailable Unavailable Unavailable Unavailable Functional [...] Right knee pain (719.46, M25.561) Status: Active CAD (coronary atherosclerotic disease) (414.00, [...] bronchitis, unspecified organism (466.0, J20.9) Status: Active Medications Name Dates Details Cetirizine [...] 13 Intramuscular Suspension Administered on:09-Jan-2015 Lot #: [id number] Family History natural son Name Dates Details [...]
--- OUTSIDE RECORDS SUMMARY | 2016-12-20 11:08 | External Medical Summary | Summary of Care ---
:1930 Author Name Allegra Estrada APRN Address [address] Unavailable [place], [place] [id number] Care Team Providers Name Role Phone Allegra Estrada APRN Unavailable Unavailable Max Salinas, Bandar Frye Unavailable Unavailable Zeenat Salinas, David Lane Unavailable Unavailable Uday Santana Unavailable Unavailable [facility]) Unavailable Unavailable [facility]) Unavailable Unavailable Unavailable Unavailable Unavailable Functional Status [...] Low back pain (724.2, M54.5) Status: Active Medications Name Dates Details Cetirizine [...] USE DIRECTED. Refills: 0 Max Dean.Theodora., Uday Portlilo Start 08-Feb-2016 Active Tylenol 325 MG Oral Tablet TAKE 1 TO 2 TABLETS EVERY 4 HOURS NEEDED Refills: 0 Max M.D., Uday Portillo Start 08-Feb-2016 Active Pepto-Bismol 262 MG Oral Tablet Chewable USE DIRECTED. Refills: 0 Max M.Theodora., Uday Portillo Start 08-Feb-2016 Active Maalox Max 400-400-40 MG/5ML Oral Suspension USE DIRECTED. Refills: 0 Max M.D., Uday Portillo Start 08-Feb-2016 Active Mylanta 200-200-20 MG/5ML Oral Suspension USE DIRECTED. Refills: 0 Max M.Theodora., Uday Portillo Start 08-Feb-2016 Active Midodrine HCl [...] 19-Mar-2007 History of Appendectomy History of Cholecystectomy Xray PELVIS (AP ONLY) Ordered: 23-Feb-2016 Xray Spine Lumbar (2 Views Only) Ordered: 23-Feb-2016 XRay HIP-Left Ordered: 23-Feb-2016 Immunization Name Dates Details Pneumo (Pneumovax) on: 17-Feb-2005 Pneumo (Pneumovax) on: 28-Feb-2006 Influenza on: 25-Dec-2008 Prevnar 13 Intramuscular Suspension on: 09-Jan-2015 Lot #: [id number] Family History natural son Name Dates Details [...] ml/min Range: >60 EST GFR, NON-AFR UGANDAN 51 ml/min (Below low Range: >60 threshold) [...] U/L Range: 73-393 05-Feb-2016 08:21 URINE CULTURE [id number] Comments: [place] [facility] performed at: [facility] [employer], [address] [place], [address], Curb Attendant: Clif Dunaway D.O., MPHQuest Collection Date/Time: [id number] Results Received Date/Time: [id number] Reported Date /Time: [id number] CULTURE, URINE, ROUTINE SEE NOTE Comments: Specimen cup submitted due to low sample volume. CULTURE, URINE, ROUTINE MICRO NUMBER: [id number] TEST STATUS: FINAL SPECIMEN SOURCE: NOT GIVEN SPECIMEN QUALITY: ADEQUATE RESULT: Three or more organisms present, each greater than 10,000 cu/mL. May represent normal james contamination from external genitalia. No further testing is required. COMMENT: The preferred specimen for urine culture is preserved and shipped in a BD urine transport tube that may be obtaine d from your [employer] supplier. Culture of unpreserved urine may produce falsely elevated bacterial counts.[RI]----- 19-Feb-2016 08:48 Urinalysis, Reflex to Microscopic or [...] Diagnosis: Problem not documented 10:00 Appointment; Jenny Lpoez, P.AZay On 28-May-2015 Encounter Diagnosis: Problem not [...]
--- OUTSIDE RECORDS SUMMARY | 2016-12-20 11:08 | External Medical Summary | Summary of Care ---
:1930 Author Name David Epperson M.D. Address [address] [place], [place] [phone] Care Team Providers Name Role Phone Max Salinas, Bandar Frye Unavailable Unavailable David Epperson M.D. Unavailable Unavailable Uday Santana Primary Care Provider Unavailable [facility] ([place]) Referring Provider Unavailable Unavailable Unavailable Unavailable [...] Pulmonary hypertension, mild (416.8, I27.2) Status: Active Thoracic back pain (724.1, M54.6) [...] upper back pain (724.5, M54.9) Status: Active Medications Name Dates Details Cetirizine HCl - 10 MG Oral Tablet TAKE 1 TABLET BY MOUTH EVERY DAY FOR ALLERGY Quantity: 31 Refills: 11 Uday Santana M.D. Started ActiveVitamin C 500 MG Oral Tablet Take 1 tablet twice daily Refills: 0 Uday Santnaa M.D. Started 12-Sep-2011 ActiveSertraline HCl - 50 [...] MG Oral Tablet TAKE 1 TABLET Weekly Every Monday Refills: 0 Uday Santana M.D. Started 20-Feb-2015 [...] Fluid 1152 Ordered:16-Mar-2015 FUNGUS CULTURE (OTHER SOURCE) [id number] Ordered:16-Mar-2015 MYCOBACTERIA ( AFB) CULTURE 5220 Ordered:16-Mar-2015 FLUID CULTURE (Aerobic) Ordered:16-Mar-2015 GLUCOSE 1100 Ordered:16-Mar-2015 TOTAL PROTEIN 1150 Ordered:16-Mar-2015 LDH 1140 Ordered:16-Mar-2015 ORTHO KNEE LEFT (3 VIEWS ONLY) Ordered:20-Jan-2015 ULTRASOUND THORACENTESIS SONO Ordered:10-Mar-2015 Immunization Name Dates Details Pneumo (Pneumovax) Administered on:17-Feb-2005 Pneumo (Pneumovax) Administered on:28-Feb-2006 Influenza Administered on:25-Dec-2008 Prevnar 13 Intramuscular Suspension Administered on:09-Jan-2015 Lot #: [id number] Family History natural son Name Dates Details [...] smoker Vital Signs Date Test Result Details 18-Mar-2015 15:50 BP Systolic 122 mm[Hg] Status: [...] Range: >60 low threshold) EST GFR, NON-AFR BELIZEAN 36 ml/min (Below Range: >60 low threshold) Comments: EST GFR is reported in ml/min per 1.73 m2 of body surface area. For -Guatem[place], please multiple result by 1.2.----- GLUCOSE 80 [...] Ciro Lewis On 13-Apr-2015 11:30 Appointment; Provider: Domingo Epperson On 02-Apr-2015 14:45 Appointment; Provider: [facility] On 20-Mar-2015 14:00 [...]
--- OUTSIDE RECORDS SUMMARY | 2016-12-20 11:08 | External Medical Summary | Summary of Care ---
:1930 Author Name Bandar Santana M.D. Address [address] [place], [place] [phone] Care Team Providers Name Role Phone Bandar Santana M.D. Unavailable Unavailable David Epperson M.D. Unavailable Unavailable Uday Santana Primary Care Provider Unavailable [facility] ([place]) Referring Provider Unavailable Unavailable Unavailable Unavailable Functional [...] Santana M.D. Started 20-Feb-2015 ActiveAspirin 81 MG Oral Tablet Refills: 0 [...] Refills: 0 Uday Santana M.D. Started 25-Feb-2015 ActiveMapap 325 MG Oral Tablet TAKE 1 [...] 13 Intramuscular Suspension Administered on:09-Jan-2015 Lot #: [id number] Family History natural son Name Dates Details [...]
--- OUTSIDE RECORDS SUMMARY | 2016-12-20 11:09 | External Medical Summary | Summary of Care ---
:1930 Author Name Jenny Plasencia Address [address] [place], [place] [phone] Care Team Providers Name Role Phone Bandar Santana M.D. 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) Status: Active Gastroesophageal reflux disease without esophagitis (530.81, K21.9) Status: Active Osteoporosis (733.00, M81.0) Status: Active [...] 13 Intramuscular Suspension Administered on:09-Jan-2015 Lot #: [id number] Family History natural son Name Dates Details [...] Encounter Diagnosis: Problem not documented 10:15 Appointment; Udya Santana On 16-Jul-2013 Encounter Diagnosis: Problem not documented 09:45 Appointment; Jag Jenkins On 11-Jul-2013 Encounter Diagnosis: Problem not documented 14:30 Appointment; Uday Santana On 03-Jun-2013 Encounter Diagnosis: Problem not documented 14:45 Appointment; Uday Santana On 14-May-2013 Encounter Diagnosis: Problem not documented 10:45 Appointment; Uday Santana On 12-Apr-2013 Encounter Diagnosis: Problem not documented 09:30
--- OUTSIDE RECORDS SUMMARY | 2016-12-20 11:09 | External Medical Summary | Summary of Care ---
:1930 Author Name Jenny Plaesncia Address [address], [place] [phone] Care Team Providers Name Role Phone Max Salinas, Bandar Frye Unavailable Unavailable David Epperson M.D. Unavailable Unavailable Uday Santana Primary Care Provider Unavailable [facility] ([place]) Referring Provider Unavailable Unavailable Unavailable Unavailable Functional [...] 13 Intramuscular Suspension Administered on:09-Jan-2015 Lot #: [id number] Family History natural son Name Dates Details [...] not documented Encounters Appointment; Jenny Lopez On 17-Sep-2015 Encounter Diagnosis: [...]
--- OUTSIDE RECORDS SUMMARY | 2016-12-20 11:09 | External Medical Summary | Summary of Care ---
:1930 Author Name David Epperson M.D. Address [address], [place] [phone] Care Team Providers Name Role Phone Max Salinas, Bandar Frye Unavailable Unavailable David Epperson M.D. Unavailable Unavailable Uday Santana Primary Care Provider Unavailable [facility] ([place]) Referring Provider Unavailable Unavailable Unavailable Unavailable [...] Fluid 1152 Ordered:16-Mar-2015 FUNGUS CULTURE (OTHER SOURCE) [id number] Ordered:16-Mar-2015 MYCOBACTERIA ( AFB) CULTURE 5220 Ordered:16-Mar-2015 FLUID CULTURE (Aerobic) Ordered:16-Mar-2015 GLUCOSE 1100 Ordered:16-Mar-2015 TOTAL PROTEIN 1150 Ordered:16-Mar-2015 LDH 1140 Ordered:16-Mar-2015 CBC w/ Auto Diff 7150 Ordered:17-Apr-2015 BASIC METABOLIC PROFILE 1210 Ordered:17-Apr-2015 ULTRASOUND THORACENTESIS SONO Ordered:10-Mar-2015 Immunization Name Dates Details Pneumo (Pneumovax) Administered on:17-Feb-2005 Pneumo (Pneumovax) Administered on:28-Feb-2006 Influenza Administered on:25-Dec-2008 Prevnar 13 Intramuscular Suspension Administered on:09-Jan-2015 Lot #: [id number] Family History natural son Name Dates Details [...]
--- OUTSIDE RECORDS SUMMARY | 2016-12-20 11:09 | External Medical Summary | Summary of Care ---
:1930 Author Name David Epperson M.D. Address [address] [place], [place] [phone] Care Team Providers Name Role Phone Max Salinas, Bandar Frye Unavailable Unavailable Uday Santana Primary Care Provider Unavailable [facility] ([place]) Referring Provider Unavailable Unavailable Unavailable Unavailable Functional [...] of Complete Colonoscopy Completed:19-Mar-2007 ECG/ EKG ([facility]) Pendin05-Mar-2015 Comprehensive Metabolic Panel 1212 Ordered:05-Mar-2015 THYROID STIM. HORMONE 3602 Ordered:05-Mar-2015 CBC w/ Auto Diff 7150 Ordered:05-Mar-2015 ORTHO KNEE LEFT (3 VIEWS ONLY) Ordered:20-Jan-2015 Immunization Name Dates Details Pneumo (Pneumovax) Administered on:17-Feb-2005 Pneumo (Pneumovax) Administered on:28-Feb-2006 Influenza Administered on:25-Dec-2008 Prevnar 13 Intramuscular Suspension Administered on:09-Jan-2015 Lot #: [id number] Family History natural son Name Dates Details [...]
--- OUTSIDE RECORDS SUMMARY | 2016-12-20 11:10 | External Medical Summary | Summary of Care ---
:1930 Author Name Bandar Santana M.D. Address Unavailable Unavailable , Care Team Providers Name Role Phone Max Salinas, Bandar Frye Unavailable Unavailable David Epperson M.D. Unavailable Unavailable Uday Santana Unavailable Unavailable [facility] ([place]) Unavailable Unavailable [facility] ([place]) Unavailable Unavailable Unavailable Unavailable Unavailable Functional Status Functional Status Health Issues Name Dates Details Functional status health issues are not documented Status: Cognitive Status Health Issues Name Dates Details Cognitive status health issues are not documented Status: Problems Name Dates Details Do Not Resuscitate Form In Chart Active Status: Active PTCA Status: Active Elevated d-dimer (790.92, R79.89) Status: Active Pes anserine bursitis (726.61, M70.50) [...] Status: Active Dizziness (780.4, R42) Status: Active De Quervain's tenosynovitis (727.04, M65.4) [...] Active Chest pain (786.50, R07.9) Status: Active Hypotension (458.9, I95.9) Status: Active Nausea and/or vomiting (787.01, R11.2) Status: Active Constipation (564.00, K59.00) Status: Active Pain, abdominal, epigastric (789.06, R10.13) Status: Active Abdominal pain, acute, right upper quadrant (789.01, R10.11) Status: Active Ingrowing nail (703.0, L60.0) Status: Active 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, 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, 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) Status: Active Acute bronchitis, unspecified organism (466.0, J20.9) Status: Active Arthrofibrosis of knee joint, 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 Start 26-Feb-2015 Active Aspirin 81 MG TABS Refills: 0 Zeenat SalinasDomingo Start 10-Mar-2015 Active Mapap 325 MG Oral Tablet TAKE 1 TO 2 TABLETS EVERY 4 HOURS NEEDED Refills: 0 Delmis Santana M.D.susan Deckery Start 17-Jun-2015 Active Milk of Magnesia 1200 MG/15ML Oral [...] Quantity: 60 Refills: 5 Start 16-Feb-2016 Active Triamcinolone Acetonide 0.1 % External Cream APPLY THIN FILM TO AFFECTED AREA(S) ONCE DAILY. Refills: 0 Uday Santana M.D. Start 12-Jan-2016 Active Mucinex 600 MG Oral Tablet Extended Release 12 Hour TAKE 1 TABLET TWICE DAILY NEEDED. Refills: 0 Uday Santana M.D. Start 12-Jan-2016 Active Bisacodyl 10 MG Rectal Suppository INSERT 1 SUPPOSITORY RECTALLY ONCE DAILY. Refills: 0 Uday Santana M.D. Start 12-Jan-2016 Active Ondansetron 4 MG Oral Tablet Dispersible TAKE 1 TABLET EVERY 6 HOURS NEEDED FOR NAUSEA/VOMITTING Quantity: 20 Refills: 0 Uday Santana M.D. Start 12-Apr-2016 Active ZyrTEC Allergy 10 MG Oral Capsule [...] 13 Intramuscular Suspension on: 09-Jan-2015 Lot #: [id number] Family History natural son Name Dates Details [...] Range: 0.0-0.7 BASO 0.0 K/uL Range: 0.0-0.2 Plan of Care Name Dates Details Planned Observations Comprehensive Metabolic Panel 1212 On 30-Jun-2016 Intent THYROID STIM. HORMONE 3602 On 30-Jun-2016 Intent LIPID PROFILE 1184 On 30-Jun-2016 Intent Planned Goals not documented Planned Encounters Appointment; Provider: Jag Jenkins M.D. On 15:00 Appointment; Provider: Lanie Conn On 14:00 Interventions Provided Labs/Procedures/ImagingCBC w/ Auto Diff 7150; Done: Jul 11 2016 9:28AM Instructions Name Dates Details Instructions not documented [...] Problem not documented 16:30 Appointment; Jenny Lopez P.A. On 21-Aug-2014 Encounter Diagnosis: Problem not documented 13:15
--- OUTSIDE RECORDS SUMMARY | 2016-12-20 11:10 | External Medical Summary | Summary of Care ---
:1930 Author Name Bandar Santana M.D. Address Unavailable Unavailable , Care Team Providers Name Role Phone Max Salinas, Bandar Frye Unavailable Unavailable David Epperson M.D. Unavailable Unavailable Uday Santana Unavailable Unavailable [facility] ([place]) Unavailable Unavailable [facility] ([place]) Unavailable Unavailable Unavailable Unavailable Unavailable Functional Status [...] Left knee pain (719.46, M25.562) Status: Active Shortness of breath (786.05, R06.02) [...] 12 o'clock position (611.72, N63) Status: Active Medications Name Dates Details Cetirizine [...] 2.5 Refills: 0 Uday Santana M.D. Start 27-Jul-2016 Active Hydrocodone-Acetaminophen 5-325 MG Oral Tablet take [...] EVERY MORNING Quantity: 31 Refills: 0 Max MNia Uday Portillo Start 04-Aug-2016 Active Allergies and Adverse Reactions Name Dates [...] 13 Intramuscular Suspension on: 09-Jan-2015 Lot #: [id number] Family History natural son Name Dates Details [...] Problem not documented 09:45 Appointment; Allegra Estrada A.P.RRomeo On 23-Feb-2016 Encounter Diagnosis: Problem not documented [...]
--- OUTSIDE RECORDS SUMMARY | 2016-12-20 11:10 | External Medical Summary | Summary of Care ---
:1930 Author Name Refugio SANONNJoelle Address [address] Unavailable [place], [place] [id number] Care Team Providers Name Role Phone Max Salinas, Bandar Frye Unavailable Unavailable David Epperson M.D. Unavailable Unavailable Uday Santana Unavailable Unavailable [facility] ([place]) Unavailable Unavailable [facility] ([place]) Unavailable Unavailable Unavailable Unavailable Unavailable Functional Status [...] 0 Uday Santana M.D. Start 04-Aug-2016 Active Hydrocodone-Acetaminophen 5-325 MG Oral Tablet take 1/2-1 tab po every 4-6 hours PRN Quantity: 15 Refills: 0 Uday Santana M.D. Start 04-Sep-2013 Active Meloxicam 7.5 MG Oral Tablet TAKE ONE TABLET BY MOUTH EVERY MORNING Quantity: 31 Refills: 0 Uday Santana M.D. Start 04-Aug-2016 Active Vitamin D3 2000 UNIT Oral Tablet TAKE ONE TAB PO DAILY Refills: 0 Uday Santana M.D. Start 20-Feb-2015 Active Atorvastatin Calcium 20 MG Oral Tablet TAKE ONE TABLET BY MOUTH EVERY NIGHT AT BEDTIME Quantity: 31 Refills: 0 Uday Santana M.D. Start 04-Aug-2016 Active Aspirin 81 MG TABS Refills: 0 Domingo Epperson M.D. Start 10-Mar-2015 Active Bisacodyl 10 MG Rectal Suppository INSERT [...] Oral Suspension USE DIRECTED. Refills: 0 Max Dean.Reva, Uday Portillo Start 08-Feb-2016 Active Tylenol 325 [...] Portillo Start 08-Feb-2016 Active Mylanta 200-200-20 MG/5ML SUSP USE DIRECTED. Refills: 0 Max Salinas, Uday Portillo Start 08-Feb-2016 Active ZyrTEC Allergy 10 MG Oral Capsule TAKE ONCE DAILY NEEDED FOR ALLERGIES Refills: 0 Max Salinas, Uday Portillo Start 12-Apr-2016 Active Ondansetron 4 MG Oral Tablet Dispersible TAKE 1 TABLET EVERY 6 HOURS NEEDED FOR NAUSEA/VOMITTING Quantity: 20 Refills: 0 Max Salinas, Uday Portillo Start 12-Apr-2016 Active Vitamin D3 1000 UNIT Oral Tablet TAKE ONE TABLET BY MOUTH EVERY MORNING Quantity: 31 Refills: 0 Uday Santana M.D. Start 04-Aug-2016 Active Aspir-Low 81 MG Oral Tablet Delayed Release TAKE ONE TABLET BY MOUTH EVERY MORNING Quantity: 31 Refills: 0 Uday Santana M.D. Start 04-Aug-2016 Active Midodrine HCl - 5 MG Oral Tablet take 1 tablet two times daily Quantity: 60 Refills: 5 Start 16-Feb-2016 Active Esomeprazole Magnesium 40 MG Oral Capsule Delayed Release TAKE 1 CAPSULE DAILY. Quantity: 31 Refills: 5 Max Dean.Reva, Uday Portillo Start Active Mapap 325 MG Oral Tablet TAKE 1 TO 2 TABLETS EVERY 4 HOURS NEEDED Refills: 0 Max Salinas, Uday Portillo Start 17-Jun-2015 Active Latanoprost 0.005 % Ophthalmic Solution INSTILL ONE DROP IN EACH EYE AT BEDTIME Quantity: 2.5 Refills: 0 Max Salinas Uday Deckery Start 27-Jul-2016 Active Sertraline HCl - 50 MG Oral Tablet Take one tablet by mouth daily Quantity: 31 Refills: 2 Max Salinas Uday Deckery Start Active Allergies and Adverse Reactions Name [...] 13 Intramuscular Suspension on: 09-Jan-2015 Lot #: [id number] Family History natural son Name Dates Details [...] Problem not documented 10:00 Appointment; Allegra Estrada A.PZayRRomeo On 23-Jun-2016 Encounter Diagnosis: Problem not documented [...] Diagnosis: Problem not documented 09:30 Appointment; Ciro Lewis, P.AZay On 13-Apr-2015 Encounter Diagnosis: Problem not documented [...]
--- OUTSIDE RECORDS SUMMARY | 2016-12-20 11:10 | External Medical Summary | Summary of Care ---
:1930 Author Name Kimmy Man Address [address] [place], [place] [id number] Care Team Providers Name Role Phone Max Salinas, Bandar Frye Unavailable Unavailable David Epperson M.D. Unavailable Unavailable Uday Santana Primary Care Provider Unavailable [facility] ([place]) Referring Provider Unavailable Unavailable Unavailable Unavailable Functional [...] left 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, Z96.652) Status: Active Anemia (285.9, D64.9) Status: Active [...] 13 Intramuscular Suspension Administered on:09-Jan-2015 Lot #: [id number] Family History natural son Name Dates Details [...] smoker Vital Signs Date Test Result Details 11-Aug-2015 13:13 BP Systolic 132 mm[Hg] Status: BP Diastolic 78 mm[Hg] Status: Heart Rate 86 /min Status: Weight 167 lb Status: Body Mass Index Calculated 25.32 kg/m2 Status: Body Surface Area Calculated 1.9 m2 Status: Results Date Description Value Details 11-Aug-2015 15:03 X KNEE LEFT SUPINE (Better) Comments: Exam Date: 2015 13:57Dictation Date: 08/11/2015 15:03 Plan of Care Planned Observations Name Dates Details Planned Goals not documented Goal Planned Encounters Appointment; Provider: Uday Santana On 11:00 Appointment; Provider: Jag Jenkins On 13:15 Appointment; Provider: Domingo Epperson On 09:30 Appointment; Provider: Juan Moon On 15-Sep-2015 09:15 Appointment; Provider: Jenny Lopez On 10-Sep-2015 13:00 Appointment; Provider: Schedule Radiology On 20-Mar-2015 14:00 Appointment; Provider: Schedule Radiology On 12-Feb-2015 14:20 Appointment; Provider: Schedule Radiology On 12-Feb-2015 14:20 Appointment; Provider: Schedule Radiology On 12-Feb-2015 14:00 Appointment; Provider: Barry Macdonald On 22-Dec-2010 11:45 Appointment; Provider: Bryan Melara On 03-May-2009 08:30 Instructions Instructions not documented Encounters Appointment; Juan Moon On 01-Sep-2015 Encounter Diagnosis: [...] Encounter Diagnosis: Problem not documented 16:30 Appointment; Jenyn Lopez On 21-Aug-2014 Encounter Diagnosis: Problem not [...]
--- OUTSIDE RECORDS SUMMARY | 2016-12-20 11:11 | External Medical Summary | Summary of Care ---
:1930 Author Name Bandar Santana M.D. Address Unavailable Unavailable , Care Team Providers Name Role Phone Max Salinas, Bandar Frye Unavailable Unavailable David Epperson M.D. Unavailable Unavailable Uday Santana Unavailable Unavailable [facility] [place] Un[place] Unavailable [facility] ([place]) Un[place] Un[place] Unavailable Unavailable Unavailable Functional Status [...] 1/2 po every 4 hours PRN Quantity: 30 Refills: 0 Max Dean.Uday Ardon Start 04-Sep-2013 Active Meloxicam 7.5 MG Oral Tablet TAKE ONE TABLET BY MOUTH EVERY MORNING Quantity: 31 Refills: 0 Uday Santana M.D. Start Active Esomeprazole Magnesium 40 MG Oral Capsule Delayed Release TAKE 1 CAPSULE DAILY. Quantity: 31 Refills: 5 Max M.D.Uday Start Active Atorvastatin Calcium 20 MG Oral [...] Max Salinas, Uday Portillo Start 08-Feb-2016 Active Midodrine HCl - 5 MG Oral Tablet Take one tablet by mouth twice a day Quantity: 60 Refills: 4 Max Salinas, Uday Portillo Start 06-Sep-2016 Active ZyrTEC Allergy 10 MG Oral Capsule TAKE ONCE DAILY NEEDED FOR ALLERGIES Refills: 0 Uday Santana M.D. Start 12-Apr-2016 Active Ondansetron 4 MG Oral Tablet Disintegrating TAKE 1 TABLET EVERY 6 HOURS NEEDED FOR NAUSEA/VOMITTING Quantity: 20 Refills: 0 Max Dean.Uday Ardon Start 12-Apr-2016 Active Vitamin D3 1000 UNIT Oral Tablet TAKE ONE TABLET BY MOUTH EVERY MORNING Quantity: 31 Refills: 0 Max Salinas, Uday Portillo Start Active Aspir-Low 81 MG Oral Tablet Delayed [...] 13 Intramuscular Suspension on: 09-Jan-2015 Lot #: [id number] Family History natural son Name Dates Details [...] 0-2 /HPF Range: 0-10 11:19 URINE CULTURE [id number] Comments: [employer] performed at: [facility] [place], [address] [facility] [place], [address], Director Of Estate: Clif Dunaway D.O., MPHQuest Collection Date/Time: [id number] Results Received Date/Time: [id number] Reported Date /Time: [id number] FASTING:NOQuest performed at : [facility] [address] [place], [address], Director Of Estate: Clif Dunaway D.O., MPHQuest Collection Date/Time: [id number] Results Received Date/Time: [id number] Reported Date/Time: FASTING:NO CULTURE, URINE, ROUTINE SEE NOTE Comments: CULTURE, URINE, ROUTINE MICRO NUMBER: [id number] TEST STATUS: FINAL SPECIMEN SOURCE: URINE SPECIMEN QUALITY: ADEQUATE RESULT: Three or more organisms present, each greater than 10,000 cu/mL. May represent normal james contamination from external genitalia. No further testing is required.[[place]]----- Plan of Care Name Dates Details Planned Observations Planned Goals not documented Planned Encounters Appointment; Provider: Jag Jenkins M.D. On 13:30 Appointment; Provider: Lanie Conn On 13:00 Appointment; Provider: Joelle Huff A.P.R.N. On 18-Jan-2017 13:00 Appointment; Provider: Uday Santana M.D. On 13-Jan-2017 10:00 Interventions Provided Medication ChangesHydrocodone-Acetaminophen 5-325 MG Oral Tablet - Renew Instructions Name Dates Details Instructions not documented Encounters Appointment; Jag Jenkins M.D. On Encounter Diagnosis: Problem not documented 15:00 Appointment; Uday Santana M.D. On Encounter Diagnosis: [...] Encounter Diagnosis: Problem not documented 14:30 Appointment; Juna Moon M.D. On 17-Mar-2015 Encounter Diagnosis: Problem [...]
--- OUTSIDE RECORDS SUMMARY | 2016-12-20 11:11 | External Medical Summary | Summary of Care ---
:1930 Author Name Jenny Plasencia Address [address], [place] [id number] Care Team Providers Name Role Phone Bandar Santana M.D. Unavailable Unavailable Uday Santana Primary Care Provider Unavailable [facility] ([place]) Referring Provider Unavailable Unavailable Unavailable [...] 3 TIMES DAILY. Refills: 0 Started 17-Feb-2015 Active Allergies and Adverse Reactions Name Dates [...] 13 Intramuscular Suspension Administered on:09-Jan-2015 Lot #: [id number] Family History natural son Name Dates Details [...] smoker Vital Signs Date Test Result Details 27-Jan-2015 13:46 BP Systolic 134 mm[Hg] Status: [...] Juan Moon On 03-Mar-2015 09:45 Appointment; Provider: Jenny Lopez On 20-Feb-2015 09:30 Appointment; Provider: [facility] On 12-Feb-2015 14:20 Appointment; Provider: [facility] On 12-Feb-2015 14:20 Appointment; Provider: Schedule Rad[facility] On 12-Feb-2015 14:00 Appointment; Provider: Barry Macdonald On 22-Dec-2010 11:45 Appointment; Provider: Bryan Melara On 03-May-2009 08:30 Instructions Instructions not documented Encounters Appointment; Uday Santana On 27-Jan-2015 Encounter Diagnosis: [...]
--- OUTSIDE RECORDS SUMMARY | 2016-12-20 11:11 | External Medical Summary | Summary of Care ---
:1930 Author Name Bandar Santana M.D. Address Unavailable Unavailable , Care Team Providers Name Role Phone Max Salinas, Bandar Frye Unavailable Unavailable David Epperson M.D. 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) [...] 5 Max Dean.Theodora., Uday Portillo Start Active Atorvastatin Calcium 20 [...] EVERY MORNING Quantity: 31 Refills: 0 Max Salinas Uday Deckery Start Active Ascorbic Acid 500 MG Oral Tablet TAKE TWO TABLETS (1000MG) BY MOUTH DAILY Refills: 0 Max Salinas, Uday Deckery Start Active Allergies and Adverse [...] Appendectomy History of Cholecystectomy CP Echo Ordered: Immunization Name Dates Details Pneumo (Pneumovax) on: 17-Feb-2005 Pneumo (Pneumovax) on: 28-Feb-2006 Influenza on: 25-Dec-2008 Prevnar 13 Intramuscular Suspension on: 09-Jan-2015 Lot #: [id number] Family History natural son Name Dates Details [...] smoker Vital Signs Date Test Result Details 10:26 BP Systolic 136 mm[Hg] Status: Comments: [...] m2 Status: Results Date Description Value Details 22-Sep-2016 06:55 MAMMOGRAM-DIAG BILATERAL FOR LUMP Comments: Exam Date: 10:27Dictation Date: 08/15/2016 11:37 OR PAIN XM DIAG BRE FOR LUMP OR PAIN Plan of Care Name Dates Details Planned Observations Planned Goals not documented Planned Encounters Appointment; Provider: Lanie Conn On 13:00 Appointment; Provider: Joelle Huff A.P.R.N. On 18-Jan-2017 13:00 Appointment; Provider: Uday Santana M.D. On 13-Jan-2017 10:00 Appointment; Provider: Jag Jenkins M.D. On 15:00 Instructions Name Dates Details Instructions not documented Encounters Appointment; Kirsten Mckeon P.A. On Encounter Diagnosis: [...] Encounter Diagnosis: Problem not documented 10:00 Appointment; Jenyn Lopez, P.AZay On 28-May-2015 Encounter Diagnosis: Problem [...]
--- OUTSIDE RECORDS SUMMARY | 2016-12-20 11:11 | External Medical Summary | Summary of Care ---
:1930 Author Name Bandar Santana M.D. Address Unavailable Unavailable , Care Team Providers Name Role Phone Bandar Santana M.D. Unavailable Unavailable David Epperson M.D. Unavailable Unavailable Uday Santana Primary Care Provider Unavailable [facility] ([place]) Referring Provider Unavailable Unavailable Unavailable Unavailable Functional [...] E78.5) Status: Active Medications Name Dates Details Latanoprost [...] TIMES DAILY. Quantity: 90 Refills: 1 Uday Satnana M.D. Started 25-Feb-2015 Active Allergies and Adverse [...] 13 Intramuscular Suspension Administered on:09-Jan-2015 Lot #: [id number] Family History natural son Name Dates Details [...] ml/min Range: >60 (Better) EST GFR, NON-AFR MONGOLIAN 51 ml/min (Below Range: >60 low threshold) Comments: EST GFR is reported in ml/min per 1.73 m2 of body surface area. For -[place], please multiple result by 1.2.----- BUN:CREATININE RATIO [...] Encounter Diagnosis: Problem not documented 08:45 Appointment; Dominog Epperson On 10-Mar-2015 Encounter Diagnosis: Problem not [...]
--- OUTSIDE RECORDS SUMMARY | 2016-12-20 11:12 | External Medical Summary | Summary of Care ---
:1930 Author Name Nely Pantoja DPM Address [address] [place]available [place], [place] [id number] Care Team Providers Name Role Phone Nely Pantoja DPM Unavailable Unavailable Max Salinas, Bandar Frye Unavailable Unavailable Zeenat Salinas, David Lane Unavailable Unavailable Uday Santana Unavailable Unavailable [facility]) Unavailable Unavailable [facility]) Unavailable Unavailable Unavailable Unavailable Unavailable Functional Status [...] M79.675) Status: Active Medications Name Dates Details Cetirizine [...] SUPPOSITORY RECTALLY ONCE DAILY. Refills: 0 Max Dean.Theodora., Uday Deckery Start 12-Jan-2016 Active Mucinex 600 MG Oral Tablet Extended Release 12 Hour TAKE 1 TABLET TWICE DAILY NEEDED. Refills: 0 Max Gillis., Uday Portillo Start 12-Jan-2016 Active Triamcinolone Acetonide 0.1 % External Cream APPLY THIN FILM TO AFFECTED AREA(S) ONCE DAILY. Refills: 0 Max Dean.Theodora., Uday Portillo Start 12-Jan-2016 Active Milk of Magnesia 1200 MG/15ML Oral Suspension USE DIRECTED. Refills: 0 Max Dean.Theodora., Uday Bandar Start 08-Feb-2016 Active Tylenol 325 MG Oral Tablet TAKE 1 TO 2 TABLETS EVERY 4 HOURS NEEDED Refills: 0 Max Gillis., Uday Portillo Start 08-Feb-2016 Active Pepto-Bismol 262 MG Oral Tablet Chewable USE DIRECTED. Refills: 0 Max Salinas, Uday Bandar Start 08-Feb-2016 Active Maalox Max 400-400-40 MG/5ML Oral Suspension USE DIRECTED. Refills: 0 Max Gillis., Uday Bandar Start 08-Feb-2016 Active Mylanta 200-200-20 [...] Quantity: 20 Refills: 0 Max Dean.Theodora., Uday Bandar Start 12-Apr-2016 Active Allergies and Adverse Reactions [...] History of Cholecystectomy CP Echo Ordered: 13-Apr-2016 CBC w/ Auto Diff 7150 Ordered: 12-Apr-2016 Comprehensive Metabolic Panel 1212 Ordered: 12-Apr-2016 LIPID PROFILE 1184 Ordered: 12-Apr-2016 THYROID STIM. HORMONE 3602 Ordered: 12-Apr-2016 CT CTA CHEST Ordered: 05-Apr-2016 Immunization Name Dates Details Pneumo (Pneumovax) on: 17-Feb-2005 Pneumo (Pneumovax) on: 28-Feb-2006 Influenza on: 25-Dec-2008 Prevnar 13 Intramuscular Suspension on: 09-Jan-2015 Lot #: [id number] Family History natural son Name Dates Details [...] low Range: >60 threshold) EST GFR, NON-AFR CYPRIOT 47 ml/min (Below low Range: >60 threshold) [...] TROPONIN I 3451 Comments: Result called to Tinaa Sawant on 04/05/2016 at 4:13 PMVerified by Repeat Analysis TROPONIN I 0.04 ng/mL Range: <0.10 Comments: <0.10 ng/ml=Negative for [place]0.10-0.59 ng/ml=Indeterminate for [place]0.60-1.50 ng/ml=Suggestive of [place]----- 16:11 D - DIMER 7505 Comments: Critical result called to Margie/MUNIR Cochran on 04/05/2016 at 4:16 PM (DDIME) [...] 0.25 ug/mL DDU.----- 08-Apr-2016 13:46 URINE CULTURE [id number] Comments: [employer] performed at: [facility] [place] [facility], [place], [address], Granite Polisher Apprentice: Clif Dunaway D.O., MPHQuest Collection Date/Time: [id number] Results Received Date/Time: [id number] Reported Date /Time: [id number] QNS FOR WILKERSON TOP CULTURE TUBE FASTING:NOQuest Accession # : [id number] performed at: [facility] [place] [employer], [place], [address], Granite Polisher Apprentice: Clif Dunaway D.O., MPHQuest Collection Date/Time: [id number] Results Received Date/Time: [id number] Rep orted Date/Time: [id number] QNS FOR WILKERSON TOP CULTURE TUBE FASTING:NO CULTURE, URINE, ROUTINE SEE NOTE (Abnormal) Comments: CULTURE, URINE, ROUTINE MICRO NUMBER: [id number] TEST STATUS: FINAL SPECIMEN SOURCE : URINE SPECIMEN QUALITY: ADEQUATE RESULT: Greater than 100,000 CFU/mL of Enterococcus s pecies COMMENT: The preferred specimen for urine culture is preserved and shipped in a BD urine transport tube that may be obtained from your [employer] supplier. Culture of unpreserved urine may produce falsely elevated bacterial counts. Additional organism(s) less than 10,000 CFU/mL isolated. These organisms, commonly found on external and internal genitalia, are considered colonizers. No further testin g performed. Enterococcus sp. INT MEGHANN AMPICILLIN S <=2 NITROFURANTOIN S & lt;=16 VANCOMYCIN S 1S=Susceptible I=Intermediate R= Resistant *=Not TestedNR=Not Reported NN=See Therapy Comments[[place]]----- 13-Apr-2016 15:26 CP Echo Y Linked PDF Report Available for Review by Clicking ImageLink Button Plan of Care Name Dates Details Planned Observations Planned Goals not documented Planned Encounters Appointment; Provider: Jag Jenkins M.D. On 15:00 Appointment; Provider: Lanie Conn On 14:00 Appointment; Provider: Uday Santana M.D. On 11-Jul-2016 10:00 Instructions Name Dates Details Instructions not documented Encounters Appointment; Nely Pantoja DPM On 13-Apr-2016 Encounter [...]
--- OUTSIDE RECORDS SUMMARY | 2016-12-20 11:12 | External Medical Summary | Summary of Care ---
:1930 Author Name Bandar Santana M.D. Address Unavailable Unavailable , Care Team Providers Name Role Phone Max Salinas, Bandar Frye Unavailable Unavailable David Epperson M.D. Unavailable Unavailable Uday Santana Unavailable Unavailable [facility] ([place]) Unavailable Unavailable [facility] ([place]) Unavailable Unavailable Unavailable Unavailable Unavailable Functional Status [...] WELL TO AFFECTED AREA(S) DIRECTED. Refills: 0 Max Salinas, Uday Portillo Start 27-Jan-2015 Active Vitamin D3 2000 UNIT Oral Tablet TAKE ONE TAB PO DAILY Refills: 0 Max Salinas, Uday Portillo Start 20-Feb-2015 Active Midodrine HCl - 5 MG Oral Tablet TAKE 1 TABLET 3 TIMES DAILY. Quantity: 90 Refills: 1 Max Dean.Reva, Uday Portillo Start 25-Feb-2015 Active Atorvastatin Calcium 20 MG Oral Tablet TAKE 1 TABLET DAILY AT BEDTIME Quantity: 31 Refills: 0 Max Salinas, Uday Portillo Start 26-Feb-2015 Active Aspirin 81 MG TABS Refills: 0 Zeenat Salinas Domingo David Start 10-Mar-2015 Active Mapap 325 MG Oral Tablet TAKE 1 TO 2 TABLETS EVERY 4 HOURS NEEDED Refills: 0 Uday Santana M.D. Bandar Start 17-Jun-2015 Active Allergies and Adverse Reactions Name [...] Diskectomy History of Complete Colonoscopy Completed: 19-Mar-2007 BASIC METABOLIC PROFILE 1210 Ordered: CBC w/ Auto Diff 7150 Ordered: Immunization Name Dates Details Pneumo (Pneumovax) on: 17-Feb-2005 Pneumo (Pneumovax) on: 28-Feb-2006 Influenza on: 25-Dec-2008 Prevnar 13 Intramuscular Suspension on: 09-Jan-2015 Lot #: [id number] Family History natural son Name Dates Details [...] 09:30 Appointment; Provider: Uday Santana M.D. On 12-Jan-2016 10:00 Interventions Provided Medication ChangesHydrocodone-Acetaminophen 5-325 MG [...] Diagnosis: Problem not documented 09:00 Appointment; Uday Snatana M.D. On 18-Dec-2013 Encounter Diagnosis: Problem not documented 10:30
--- OUTSIDE RECORDS SUMMARY | 2016-12-20 11:12 | External Medical Summary | Summary of Care ---
:1930 Author Name Bandar Santana M.D. Address Unavailable Unavailable , Care Team Providers Name Role Phone Max Salinas, Bandar Frye Unavailable Unavailable David Epperson M.D. Unavailable Unavailable Uday Santana Unavailable Unavailable [facility] ([place]) Unavailable Unavailable [facility] ([place]) Unavailable Unavailable Unavailable Unavailable Unavailable Functional [...] DAILY NEEDED. Refills: 0 Max Salinas, Uday Bandar Start 12-Jan-2016 Active Triamcinolone Acetonide 0.1 % External Cream APPLY THIN FILM TO AFFECTED AREA(S) ONCE DAILY. Refills: 0 Max Gillis., Uday Portillo Start 12-Jan-2016 Active Milk of Magnesia 1200 MG/15ML Oral Suspension USE DIRECTED. Refills: 0 Max Salinas, Uday Portillo Start 08-Feb-2016 Active Tylenol 325 MG Oral Tablet TAKE 1 TO 2 TABLETS EVERY 4 HOURS NEEDED Refills: 0 [facility], [facility] Start 08-Feb-2016 Active Pepto-Bismol 262 MG Oral Tablet Chewable USE DIRECTED. Refills: 0 Max Salinas, Uday Bandar Start 08-Feb-2016 Active Maalox Max 400-400-40 MG/5ML Oral Suspension USE DIRECTED. Refills: 0 Max Salinas, Uday Bandar Start 08-Feb-2016 Active Mylanta 200-200-20 [...] NAUSEA/VOMITTING Quantity: 20 Refills: 0 Max Dean.Theodora., [facility] Start 12-Apr-2016 Active Allergies and Adverse [...] 13 Intramuscular Suspension on: 09-Jan-2015 Lot #: [id number] Family History natural son Name Dates Details [...] low Range: >60 threshold) EST GFR, NON-AFR [place] 47 ml/min (Below low Range: >60 threshold) [...] for MI0.10-0.59 ng/ml=Indeterminate for MI0.60-1.50 ng/ml=Suggestive of [place]----- 16:11 D - DIMER 7505 Comments: Critical result called to Margie/[facility] Josep Cochran on 04/05/2016 at 4:16 PM [...] values are greater than 0.25 ug/mL DDU.----- 9-Dec-2016 13:46 URINE CULTURE [id number] Comments: [facility] performed at: [facility], [place], [address], Final Assembly Worker: Clif Dunaway D.O., MPHQuest Collection Date/Time: [id number] Results Received Date/Time: [id number] Reported Date /Time: [id number] QNS FOR WILKERSON TOP CULTURE TUBE FASTING:[employer] Accession # : [id number] performed at: [employer] [facility], [place], [address], Final Assembly Worker: Clif Dunaway D.O., MPHQuest Collection Date/Time: [id number] Results Received Date/Time: [id number] Rep orted Date/Time: [id number] QNS FOR WILKERSON TOP CULTURE TUBE FASTING:NO CULTURE, URINE, ROUTINE SEE NOTE (Abnormal) Comments: CULTURE, URINE, ROUTINE MICRO NUMBER: [id number] TEST STATUS: FINAL SPECIMEN SOURCE : URINE SPECIMEN QUALITY: ADEQUATE RESULT: Greater than 100,000 CFU/mL of Enterococcus s pecies COMMENT: The preferred specimen for urine culture is preserved and shipped in a BD urine transport tube that may be obtained from your [employer] supplier. Culture of unpreserved urine may produce falsely elevated bacterial counts. Additional organism(s) less than 10,000 CFU/mL isolated. These organisms, commonly found on external and internal genitalia, are considered colonizers. No further testin g performed. Enterococcus sp. INT MEGHANN AMPICILLIN S <=2 NITROFURANTOIN S & lt;=16 VANCOMYCIN S 1S=Susceptible I=Intermediate R= Resistant *=Not TestedNR=Not Reported NN=See Therapy Comments[MD]----- 13-Apr-2016 15:26 CP Echo Y Linked PDF Report Available for Review by Clicking ImageLink Button Plan of Care Name Dates Details Planned Observations Planned Goals not documented Planned Encounters Appointment; Provider: Jag Jenkins M.D. On 15:00 Appointment; Provider: Lanie Conn On 14:00 Appointment; Provider: Uday Satnana M.D. On 11-Jul-2016 10:00 Appointment; Provider: Nely Pantoja DPM On 27-Apr-2016 13:30 Interventions Provided Medication ChangesHydrocodone-Acetaminophen 5-325 MG Oral Tablet - Renew Instructions Name Dates Details Instructions not documented Encounters Appointment; Nely Pantoja DPM On 13-Apr-2016 Encounter Diagnosis: Problem not documented 09:45 Appointment; Uady Santana M.D. On 12-Apr-2016 Encounter Diagnosis: Problem [...]
--- OUTSIDE RECORDS SUMMARY | 2016-12-20 11:12 | External Medical Summary | Summary of Care ---
:1930 Author Name Graciela Curtis Address [address] [place] [address] Care Team Providers Name Role Phone Graciela Curtis Unavailable Unavailable Max Salinas, Bandar Frye Unavailable Unavailable Zeenat Salinas, David Lane Unavailable Unavailable Uday Santana Unavailable Unavailable [facility] ([place]) Unavailable Unavailable [facility]) Unavailable Unavailable Unavailable Unavailable Unavailable Functional [...] Active Chest pain (786.50, R07.9) Status: Active Medications Name Dates Details Cetirizine [...] TABLET TWICE DAILY NEEDED. Refills: 0 Max Dianne.Theodora., Uday Portillo Start 12-Jan-2016 Active Triamcinolone Acetonide 0.1 % External Cream APPLY THIN FILM TO AFFECTED AREA(S) ONCE DAILY. Refills: 0 Max Dianne.Theodora., Uday Portillo Start 12-Jan-2016 Active Milk of Magnesia 1200 MG/15ML Oral Suspension USE DIRECTED. Refills: 0 Max Dianne.Theodora., Uday Portillo Start 08-Feb-2016 Active Tylenol 325 MG Oral Tablet TAKE 1 TO 2 TABLETS EVERY 4 HOURS NEEDED Refills: 0 Max Dianne.Theodora., Uday Portillo Start 08-Feb-2016 Active Pepto-Bismol 262 MG Oral Tablet Chewable USE DIRECTED. Refills: 0 Max Dianne.Theodora., Uday Portillo Start 08-Feb-2016 Active Maalox Max 400-400-40 MG/5ML Oral Suspension USE DIRECTED. Refills: 0 Max Dianne.Theodora., Uday Portillo Start 08-Feb-2016 Active Mylanta 200-200-20 [...] 19-Mar-2007 History of Appendectomy History of Cholecystectomy CT CTA CHEST Ordered: 05-Apr-2016 Immunization Name Dates Details Pneumo (Pneumovax) on: 17-Feb-2005 Pneumo (Pneumovax) on: 28-Feb-2006 Influenza on: 25-Dec-2008 Prevnar 13 Intramuscular Suspension on: 09-Jan-2015 Lot #: [id number] Family History natural son Name Dates Details [...] smoker Vital Signs Date Test Result Details 05-Apr-2016 15:01 BP Systolic 160 mm[Hg] Status: Comments: Location: ; Position: BP Diastolic 84 mm[Hg] Status: Comments: Location: ; Position: Temperature 97.5 f Status: Heart Rate 84 /min Status: Comments: Location: ; Physical Findings 96 Status: Comments: O2 Saturation 08-Mar-2016 10:02 BP Systolic 122 mm[Hg] Status: Comments: Location: ; Position: BP Diastolic 73 mm[Hg] Status: Comments: Location: ; Position: Heart Rate 95 /min Status: Comments: Location: ; Height 69 in Status: Results Date Description Value Details 05-Apr-2016 15:37 [...] low Range: >60 threshold) EST GFR, NON-AFR [place]AR[place]ESE 47 ml/min (Below low Range: >60 threshold) [...] TROPONIN I 3451 Comments: Result called to Margie by Tiana Alexandra on 04/05/2016 at 4:13 PMVerified by Repeat Analysis TROPONIN I 0.04 ng/mL Range: <0.10 Comments: <0.10 ng/ml=Negative for MI0.10-0.59 ng/ml=Indeterminate for MI0.60-1.50 ng/ml=Suggestive of [place]----- 16:11 D - DIMER 7505 Comments: Critical [...] values are greater than 0.25 ug/mL DDU.----- Plan of Care Name Dates Details Planned Observations Planned Goals not documented Planned Encounters Appointment; Provider: Jag Jenkins M.D. On 15:00 Appointment; Provider: Uday Santana M.D. On 12-Apr-2016 10:00 Appointment; Provider: Schedule Radiology On 05-Apr-2016 17:30 Interventions Provided Labs/Procedures/ImagingCT CTA CHEST; To be Done: 05 Apr 2016AMYLASE 1250; Done: Apr 05 2016 3:33PMBNP 3103; Done: Apr 05 2016 3:33PMCBC w/ Auto Diff 7150; Done: Apr 05 2016 3:33PMComprehensive Metabolic Panel 1212; Done: Apr 05 2016 3:33PMD - DIMER 7505; Done: Apr 05 2016 3:33PMECG/ EKG (Specialists); Done: Apr 05 2016 3:37PMLipase 1275; Done: Apr 05 2016 3:33PMTROPONIN I 3451; Done: Apr 05 2016 3:33PMUrinalysis, Reflex to Microscopic or Culture PRN 8005; Done: Apr 05 2016 3:25PM Instructions Name Dates Details Instructions not documented [...] Problem not documented 16:30 Appointment; Jenny Lopez PMarin On 21-Aug-2014 Encounter Diagnosis: Problem not documented 13:15 Appointment; Jag Jenkins M.D. On 10-Jul-2014 Encounter Diagnosis: Problem not documented 14:30 Appointment; Uday Santana M.D. On 02-Jul-2014 Encounter Diagnosis: Problem not documented 09:00 Appointment; Uday Santana M.D. On 28-May-2014 Encounter Diagnosis: Problem not documented 09:30
--- OUTSIDE RECORDS SUMMARY | 2016-12-20 11:13 | External Medical Summary | Summary of Care ---
:1930 Author Name Bandar Santana M.D. Address [address], [place] [id number] Care Team Providers Name Role Phone Bandar Santana M.D. Unavailable Unavailable David Epperson M.D. Unavailable Unavailable Uday Santana Primary Care Provider Unavailable [facility] ([place]) Referring Provider Unavailable Unavailable Unavailable Unavailable Functional [...] Refills: 3 Uday Santana M.D. Started 20-Feb-2015 ActiveMapap 325 MG Oral Tablet TAKE 1 TO 2 TABLETS EVERY 4 HOURS NEEDED Refills: 0 Uday Santana M.D. Started 17-Jun-2015 ActiveHydrocodone-Acetaminophen 5-325 MG Oral Tablet take 1/2 tab po BID prn Quantity: 15 Refills: 0 Uday Santana M.D. Started 04-Sep-2013 Active Allergies and Adverse Reactions Name Dates [...] 13 Intramuscular Suspension Administered on:09-Jan-2015 Lot #: [id number] Family History natural son Name Dates Details [...] On 09:30 Appointment; Provider: Jenny Lopez On 10-Sep-2015 13:00 Appointment; Provider: Juan Moon On 01-Sep-2015 10:15 Appointment; Provider: Schedule Radiology On 20-Mar-2015 14:00 Appointment; Provider: Schedule Radiology On 12-Feb-2015 14:20 Appointment; Provider: Schedule Radiology On 12-Feb-2015 14:20 Appointment; Provider: Schedule Radiology On 12-Feb-2015 14:00 Appointment; Provider: Barry Macdonald On 22-Dec-2010 11:45 Appointment; Provider: Bryan Melara On 03-May-2009 08:30 Instructions Instructions not documented Encounters Appointment; Uday Santana On 11-Aug-2015 Encounter Diagnosis: [...] Diagnosis: Problem not documented 14:30 Appointment; Uday Santnaa On 09-Jan-2015 Encounter Diagnosis: Problem not documented [...]
--- OUTSIDE RECORDS SUMMARY | 2016-12-20 11:13 | External Medical Summary | Summary of Care ---
:1930 Author Name Kirsten Hancock Address [address], [place] [id number] Care Team Providers Name Role Phone Kirsten Hancock Unavailable Unavailable Max Salinas, Bandar Frye Unavailable Unavailable Zeenat Salinas, David Lane Unavailable Unavailable Uday Santana Unavailable Unavailable [facility] ([place]) Unavailable Unavailable [facility]) Unavailable Unavailable Unavailable Unavailable Unavailable Functional Status [...] I27.2) Status: Active Medications Name Dates Details Aspirin 81 MG TABS Refills: 0 Domingo Epperson M.D. Start 10-Mar-2015 Active Cetirizine HCl - 10 MG Oral Tablet TAKE 1 TABLET BY MOUTH EVERY DAY FOR ALLERGY Quantity: 31 Refills: 3 Uday Santana M.D. Start Active Esomeprazole Magnesium 40 MG Oral Capsule Delayed Release TAKE 1 CAPSULE DAILY. Quantity: 31 Refills: 5 Uday Santana M.D. Start Active Mapap 325 MG Oral Tablet [...] USE DIRECTED. Refills: 0 Max Gillis., Uday Portillo Start 08-Feb-2016 Active Mylanta 200-200-20 MG/5ML SUSP USE DIRECTED. Refills: 0 Max Salinas, Uday Portillo Start 08-Feb-2016 Active Hydrocodone-Acetaminophen 5-325 MG Oral Tablet take 1/2 po every 4 hours PRN Quantity: 15 Refills: 0 Max Salinas, Uday Portillo Start 04-Sep-2013 Active Latanoprost 0.005 % Ophthalmic Solution INSTILL ONE DROP IN EACH EYE AT BEDTIME Quantity: 2.5 Refills: 0 Max Salinas, Uday Portillo Start 19-Aug-2016 Active Sertraline HCl - 50 MG Oral Tablet TAKE ONE TABLET BY MOUTH EVERY MORNING Quantity: 31 Refills: 0 Max Salinas, Uday Portillo Start Active Vitamin C 500 MG Oral Tablet Take two tablets by mouth every morning Quantity: 62 Refills: 0 Max Salinas, Uday Portillo Start Active Atorvastatin Calcium 20 MG Oral Tablet TAKE ONE TABLET BY MOUTH EVERY NIGHT AT BEDTIME Quantity: 31 Refills: 0 Max Salinas, Uday Portillo Start Active Meloxicam 7.5 MG Oral Tablet TAKE ONE TABLET BY MOUTH EVERY MORNING Quantity: 31 Refills: 0 Max Salinas, Uday Portillo Start Active ZyrTEC Allergy 10 MG Oral Capsule [...] Max Salinas, Uday Portillo Start 06-Sep-2016 Active Aspir-Low 81 MG Oral Tablet Delayed Release TAKE ONE TABLET BY MOUTH EVERY MORNING Quantity: 31 Refills: 0 Uday Santana M.D. Start Active Vitamin D3 1000 UNIT Oral Tablet TAKE ONE TABLET BY MOUTH EVERY MORNING Quantity: 31 Refills: 0 Max M.Reva Uday Deckery Start Active Allergies and Adverse [...] Appendectomy History of Cholecystectomy CP Echo Ordered: MAMMOGRAM-DIAG UNILATERAL FOR LUMP PAIN Ordered: 11-Aug-2016 Immunization Name Dates Details Pneumo (Pneumovax) on: 17-Feb-2005 Pneumo (Pneumovax) on: 28-Feb-2006 Influenza on: 25-Dec-2008 Prevnar 13 Intramuscular Suspension on: 09-Jan-2015 Lot #: [id number] Family History natural son Name Dates Details [...] smoker Vital Signs Date Test Result Details 14:02 BP Systolic 126 mm[Hg] Status: Comments: [...] Provider: Lanie Conn On 13:00 Appointment; Provider: Jag Jenkins M.D. On 15:00 Appointment; Provider: Uday Santana M.D. On 10:00 Instructions Name Dates Details Instructions not [...] Diagnosis: Problem not documented 09:45 Appointment; Uday Snatana M.D. On 12-Apr-2016 Encounter Diagnosis: Problem not documented 10:00 Appointment; Graciela Barron P.A. On 05-Apr-2016 Encounter Diagnosis: Problem not documented 14:40 Appointment; Juan Moon M.D. On 08-Mar-2016 Encounter Diagnosis: Problem not documented 09:45 Appointment; Allegra Estrada A.PZayRRomeo On 23-Feb-2016 Encounter Diagnosis: Problem not documented [...]
--- OUTSIDE RECORDS SUMMARY | 2016-12-20 11:13 | External Medical Summary | Summary of Care ---
:1930 Author Name Bandar Santana M.D. Address [address], [place] [phone] Care Team Providers Name Role Phone Bandar [...] Refills: 0 Domingo Epperson M.D. Started 10-Mar-2015 ActiveAlendronate Sodium 70 MG Oral Tablet TAKE 1 TABLET Weekly Every Monday Refills: 0 Uday Santana M.D. Started 20-Feb-2015 ActivePredniSONE 20 MG Oral Tablet TAKE 3 [...] Fluid 1152 Ordered:16-Mar-2015 FUNGUS CULTURE (OTHER SOURCE) [id number] Ordered:16-Mar-2015 MYCOBACTERIA ( AFB) CULTURE 5220 Ordered:16-Mar-2015 [...] 13 Intramuscular Suspension Administered on:09-Jan-2015 Lot #: [id number] Family History natural son Name Dates Details [...] Range: >60 low threshold) EST GFR, NON-AFR INDIAN 36 ml/min (Below Range: >60 low threshold) Comments: EST GFR is reported in ml/min per 1.73 m2 of body surface area. For -Angolan, please multiple result by 1.2.----- GLUCOSE 80 [...] 14:45 Appointment; Provider: Schedule Radiology On 20-Mar-2015 15:00 [...]
--- OUTSIDE RECORDS SUMMARY | 2016-12-20 11:13 | External Medical Summary | Summary of Care ---
:1930 Author Name Bandar Santana M.D. Address [address] [place], [place] [id number] Care Team Providers Name Role Phone Bandar Santana M.D. Unavailable Unavailable David Epperson M.D. Unavailable Unavailable Uday Santana Primary Care Provider Unavailable [facility] ([place]) Referring Provider Unavailable Unavailable Unavailable Unavailable Functional [...] Fluid 1152 Ordered:16-Mar-2015 FUNGUS CULTURE (OTHER SOURCE) [id number] Ordered:16-Mar-2015 MYCOBACTERIA ( AFB) CULTURE 5220 Ordered:16-Mar-2015 FLUID CULTURE (Aerobic) Ordered:16-Mar-2015 GLUCOSE 1100 Ordered:16-Mar-2015 TOTAL PROTEIN 1150 Ordered:16-Mar-2015 LDH 1140 Ordered:16-Mar-2015 ULTRASOUND THORACENTESIS SONO Ordered:10-Mar-2015 Immunization Name Dates Details Pneumo (Pneumovax) Administered on:17-Feb-2005 Pneumo (Pneumovax) Administered on:28-Feb-2006 Influenza Administered on:25-Dec-2008 Prevnar 13 Intramuscular Suspension Administered on:09-Jan-2015 Lot #: [id number] Family History natural son Name Dates Details [...] Diagnosis: Problem not documented 13:15 Appointment; Jag Jeknins On 10-Jul-2014 Encounter Diagnosis: Problem not documented [...]
--- OUTSIDE RECORDS SUMMARY | 2016-12-20 11:14 | External Medical Summary | Summary of Care ---
:1930 Author Name David Epperson M.D. Address [address] [place], [place] [phone] Care Team Providers Name Role Phone Max Salinas, Bandar Frye Unavailable Unavailable David Epperson M.D. Unavailable Unavailable Uday Santana Primary Care Provider Unavailable [facility] ([place]) Referring Provider Unavailable Unavailable Unavailable Unavailable Functional [...] Diskectomy History of Complete Colonoscopy Completed:19-Mar-2007 XRay KNEE-Left Ordered:11-Aug-2015 XRay SPINE-LUMBAR Ordered:22-Sep-2015 Immunization Name Dates Details Pneumo (Pneumovax) Administered on:17-Feb-2005 Pneumo (Pneumovax) Administered on:28-Feb-2006 Influenza Administered on:25-Dec-2008 Prevnar 13 Intramuscular Suspension Administered on:09-Jan-2015 Lot #: [id number] Family History natural son Name Dates Details [...] smoker Vital Signs Date Test Result Details 09:21 BP Systolic 132 mm[Hg] Status: BP Diastolic 74 mm[Hg] Status: Heart Rate 68 /min Status: Height 69 in Status: O2 SAT 98 % Status: 22-Sep-2015 10:20 BP Systolic 136 mm[Hg] Status: [...] Provider: Jag Jenkins On 13:15 Appointment; Provider: Schedule Radiology On 20-Mar-2015 14:00 Appointment; Provider: Schedule Radiology On 12-Feb-2015 14:20 Appointment; Provider: Schedule Radiology On 12-Feb-2015 14:20 Appointment; Provider: Schedule Radiology On 12-Feb-2015 14:00 Appointment; Provider: Barry Macdonald On 22-Dec-2010 11:45 Appointment; Provider: Bryan Melara On 03-May-2009 08:30 Instructions Instructions not documented Encounters Appointment; Domingo Epperson On Encounter Diagnosis: Problem [...] Encounter Diagnosis: Problem not documented 08:45 Appointment; Doimngo Epperson On 10-Mar-2015 Encounter Diagnosis: Problem not [...]
--- OUTSIDE RECORDS SUMMARY | 2016-12-20 11:14 | External Medical Summary | Summary of Care ---
:1930 Author Name Joelle Huff APRN Address [address] Unavailable [place], [place] [id number] Care Team Providers Name Role Phone Max Salinas, Bandar Frye Unavailable Unavailable David Epperson M.D. Unavailable Unavailable Uday Santana Unavailable Unavailable [facility] ([place]) Unavailable Unavailable [facility] ([place]) Unavailable Unavailable Unavailable Unavailable Unavailable Functional Status [...] FOR ALLERGY Quantity: 31 Refills: 3 Max M.D., Uday Portillo Start Active Sertraline HCl - 50 MG Oral Tablet Take one tablet by mouth daily Quantity: 31 Refills: 2 Max M.D., Uday Portillo Start Active Vitamin C 500 MG Oral Tablet Take two tablets by mouth every morning Quantity: 60 Refills: 0 Max Dean.Reva, Uday Portillo Start 06-Sep-2016 Active Latanoprost 0.005 % Ophthalmic Solution INSTILL ONE DROP IN EACH EYE AT BEDTIME Quantity: 2.5 Refills: 0 Max Dean.Reva, Uday Portillo Start 19-Aug-2016 Active Hydrocodone-Acetaminophen 5-325 MG Oral Tablet take 1/2 po every 4 hours PRN Quantity: 15 Refills: 0 Max Dean.Reva, Uday Portillo Start 04-Sep-2013 Active Meloxicam 7.5 MG Oral Tablet TAKE ONE TABLET BY MOUTH EVERY MORNING Quantity: 30 Refills: 0 Max Dean.Uday Ardon Start 06-Sep-2016 Active Esomeprazole Magnesium 40 MG Oral Capsule Delayed Release TAKE 1 CAPSULE DAILY. Quantity: 31 Refills: 5 Max M.Theodora., Uday Portillo Start Active Vitamin D3 2000 UNIT Oral Tablet TAKE ONE TAB PO DAILY Refills: 0 Max Dean.Uday Ardon Start 20-Feb-2015 Active Atorvastatin Calcium 20 MG Oral Tablet TAKE ONE TABLET BY MOUTH EVERY NIGHT AT BEDTIME Quantity: 30 Refills: 0 Max Dean.Uday Ardon Start 06-Sep-2016 Active Aspirin 81 MG TABS Refills: 0 Zeenat Dean.Domingo Ardon 10-Mar-2015 Active Mapap 325 MG Oral Tablet [...] ONE TABLET BY MOUTH EVERY MORNING Quantity: 30 Refills: 0 Max M.D., Uday Portillo Start 06-Sep-2016 Active Aspir-Low 81 MG Oral Tablet Delayed Release TAKE ONE TABLET BY MOUTH EVERY MORNING Quantity: 30 Refills: 0 Max M.D., Uday Portillo Start 06-Sep-2016 Active Hydrocodone-Acetaminophen 5-325 MG Oral Tablet TAKE [...] 13 Intramuscular Suspension on: 09-Jan-2015 Lot #: [id number] Family History natural son Name Dates Details [...] to report Results Date Description Value Details 22-Sep-2016 06:55 [...] Instructions not documented Encounters Appointment; Joelle Huff A.P.R.N. On 10-Aug-2016 Encounter [...]
--- OUTSIDE RECORDS SUMMARY | 2016-12-20 11:14 | External Medical Summary | Summary of Care ---
:1930 Author Name Bandar Santana M.D. Address [address], [place] [phone] Care Team Providers Name Role Phone Bandar Santana M.D. Unavailable Unavailable David Epperson M.D. 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 Anemia (285.9, D64.9) Status: Active [...] Low back pain (724.2, M54.5) Status: Active Left knee pain (719.46, M25.562) Status: Active Acute frontal sinusitis, recurrence not specified (461.1, J01.10) Status: Active Medications Name Dates Details Cetirizine [...] 13 Intramuscular Suspension Administered on:09-Jan-2015 Lot #: [id number] Family History natural son Name Dates Details [...] Body Surface Area Calculated 1.9 m2 Status: 29-Jul-2015 11:29 BP Systolic 122 mm[Hg] Status: [...] Range: >60 low threshold) EST GFR, NON-AFR [place] 37 ml/min (Below Range: >60 low threshold) Comments: EST GFR is reported in ml/min per 1.73 m2 of body surface area. For -Gren[place], please multiple result by 1.2.----- BUN:CREATININE RATIO 15 (Better) GLUCOSE 99 mg/dL (Better) Range: 70-100 CALCIUM 9.2 mg/dL (Better) Range: 8.5-10.1 13:45 X SPINE L-S COMPLETE (Better) Comments: Exam Date: 07/29/2015 12: 06Dictation Date: 07/29/2015 13:45 Plan of Care Planned Observations Name Dates [...]
--- OUTSIDE RECORDS SUMMARY | 2016-12-20 11:14 | External Medical Summary | Summary of Care ---
[...] Colonoscopy Completed:19-Mar-2007 BASIC METABOLIC PROFILE 1210 Ordered: HEMOGLOBIN A1C 3507 Ordered: XRay SPINE-LUMBAR Ordered:22-Sep-2015 Immunization Name Dates Details Pneumo (Pneumovax) Administered on:17-Feb-2005 Pneumo (Pneumovax) Administered on:28-Feb-2006 Influenza Administered on:25-Dec-2008 Prevnar 13 Intramuscular Suspension Administered on:09-Jan-2015 Lot #: [id number] Family History natural son Name Dates Details [...] Encounter Diagnosis: Problem not documented 14:30 Appointment; Uady Santana On 09-Jan-2015 Encounter Diagnosis: Problem not [...]
--- OUTSIDE RECORDS SUMMARY | 2016-12-20 11:15 | External Medical Summary | Summary of Care ---
:1930 Author Name Aspen Moon M.D. Address [address], [place] [id number] Care Team Providers Name Role Phone Bandar Santana M.D. Unavailable Unavailable Uday Santana Primary Care Provider Unavailable [facility] ([place]) Referring Provider Unavailable Unavailable Unavailable Unavailable Functional [...] 13 Intramuscular Suspension Administered on:09-Jan-2015 Lot #: [id number] Family History natural son Name Dates Details [...]
--- OUTSIDE RECORDS SUMMARY | 2016-12-20 11:15 | External Medical Summary | Summary of Care ---
:1930 Author Name Jenny Plasencia Address [address], [place] [id number] Care Team Providers Name Role Phone Max Salinas, Bandar Frye Unavailable Unavailable David Epperson M.D. Unavailable Unavailable Uday Santana Primary Care Provider Unavailable [facility] ([place]) Referring Provider Unavailable Unavailable Unavailable Unavailable Functional [...] DAILY NEEDED FOR MUSCLE SPASM. Refills: 0 Udya Santana M.D. Started 18-Mar-2015 Active Allergies and [...] 13 Intramuscular Suspension Administered on:09-Jan-2015 Lot #: [id number] Family History natural son Name Dates Details [...] smoker Vital Signs Date Test Result Details 28-May-2015 13:39 BP Systolic 88 mm[Hg] Status: [...] not documented Encounters Appointment; Jenny Lopez On 28-May-2015 Encounter Diagnosis: [...]
--- OUTSIDE RECORDS SUMMARY | 2016-12-20 11:15 | External Medical Summary | Summary of Care ---
:1930 Author Name Bandar Santana M.D. Address Unavailable Unavailable , Care Team Providers Name Role Phone Max Salinas, Bandar Frye Unavailable Unavailable David Epperson M.D. Unavailable Unavailable Uday Santana Unavailable Unavailable [facility] ([place]) Unavailable Unavailable [facility] ([place]) Unavailable Unavailable Unavailable Unavailable Unavailable Functional Status [...] Shortness of breath (786.05, R06.02) Status: Active Medications Name Dates Details Cetirizine [...] HOURS NEEDED Refills: 0 Max Salinas, Uday Bandar Start 17-Jun-2015 Active Bisacodyl 10 MG Rectal [...] 13 Intramuscular Suspension on: 09-Jan-2015 Lot #: [id number] Family History natural son Name Dates Details [...] Dates Details Instructions not documented Encounters Appointment; Graciela Barron P.A. On 05-Apr-2016 Encounter [...]
--- OUTSIDE RECORDS SUMMARY | 2016-12-20 11:15 | External Medical Summary | Summary of Care ---
:1930 Author Name Joelle Huff APRN Address [address] [place]available [place], [place] [id number] Care Team Providers Name Role Phone Joelle Huff APRN Unavailable Unavailable Max Salinas, Bandar Frye Unavailable Unavailable Zeenat Salinas, David Lane Unavailable Unavailable Uday Santana Unavailable Unavailable [facility]) Unavailable Unavailable [facility]) Unavailable Unavailable Unavailable Unavailable Unavailable Functional Status [...] 5 Max Dean.Reva, Uday Portillo Start Active Vitamin D3 2000 UNIT Oral Tablet TAKE ONE TAB PO DAILY Refills: 0 Uday Santana M.D. Start 20-Feb-2015 Active Atorvastatin Calcium 20 MG Oral Tablet TAKE ONE TABLET BY MOUTH EVERY NIGHT AT BEDTIME Quantity: 31 Refills: 0 Uday Santana M.D. Start 04-Aug-2016 Active Aspirin 81 MG TABS Refills: 0 Zeenat Salinas Domingo Hernandez Start 10-Mar-2015 Active Mapap 325 MG Oral [...] TO AFFECTED AREA(S) ONCE DAILY. Refills: 0 Udya Santana M.D. Start 12-Jan-2016 Active Milk of [...] EVERY MORNING Quantity: 31 Refills: 0 Max Dean.Reva, Uday Portillo Start 04-Aug-2016 Active Aspir-Low 81 MG Oral Tablet Delayed Release TAKE ONE TABLET BY MOUTH EVERY MORNING Quantity: 31 Refills: 0 Max Dean.D., Uday Portillo Start 04-Aug-2016 Active Allergies and [...] 13 Intramuscular Suspension on: 09-Jan-2015 Lot #: [id number] Family History natural son Name Dates Details [...] 10:00 Appointment; Provider: Lanie Conn On 14:00 Appointment; Provider: Joelle Huff A.P.R.N. On 10-Aug-2016 13:15 Instructions Name Dates Details Instructions not documented Encounters Appointment; Uday Santana M.D. On 11-Jul-2016 Encounter [...] Problem not documented 15:50 Appointment; Jenny Lopez P.Deborah On 17-Sep-2015 Encounter Diagnosis: Problem not documented [...] Encounter Diagnosis: Problem not documented 14:45 Appointment; dUay Santana M.D. On 18-Mar-2015 Encounter Diagnosis: Problem [...]
--- OUTSIDE RECORDS SUMMARY | 2016-12-20 11:15 | External Medical Summary | Summary of Care ---
:1930 Author Name Bandar Santana M.D. Address Unavailable Unavailable , Care Team Providers Name Role Phone Bandar Santana M.D. Unavailable Unavailable David Epperson M.D. Unavailable Unavailable Uday Santana Primary Care Provider Unavailable [facility] ([place]) Referring Provider Unavailable Unavailable Unavailable Unavailable [...] 13 Intramuscular Suspension Administered on:09-Jan-2015 Lot #: [id number] Family History natural son Name Dates Details [...]
--- OUTSIDE RECORDS SUMMARY | 2016-12-20 11:16 | External Medical Summary | Summary of Care ---
:1930 Author Name David Epperson M.D. Address [address], [place] [phone] Care Team Providers Name Role Phone Max Salinas, Bandar Frye Unavailable Unavailable David Epperson M.D. Unavailable Unavailable Uday Santana Primary Care Provider Unavailable [facility] ([place]) Referring Provider Unavailable Unavailable Unavailable Unavailable [...] 31 Refills: 3 Uday Santana M.D. Started ActiveCetirizine HCl - 10 MG Oral Tablet TAKE 1 TABLET BY MOUTH EVERY DAY FOR ALLERGY Quantity: 31 Refills: 0 Uday Santana M.D. Started ActiveEsomeprazole Magnesium 40 MG Oral Capsule Delayed Release TAKE 1 CAPSULE DAILY. Quantity: 30 Refills: 0 Uday Santana M.D. Started ActiveMeloxicam 7.5 MG Oral Tablet TAKE 1 TABLET DAILY FOR ARTHRITIS Quantity: 31 Refills: 0 Uday Santana M.D. Started ActiveHydrocortisone [...] Colonoscopy Completed:19-Mar-2007 Amylase Body Fluid 1251 Ordered:16-Mar-2015 TOTAL PROTEIN 1150 Ordered:16-Mar-2015 LDH 1140 Ordered:16-Mar-2015 CBC w/ Auto Diff 7150 Ordered:17-Apr-2015 BASIC METABOLIC PROFILE 1210 Ordered:17-Apr-2015 ULTRASOUND THORACENTESIS SONO Ordered:10-Mar-2015 Immunization Name Dates Details Pneumo (Pneumovax) Administered on:17-Feb-2005 Pneumo (Pneumovax) Administered on:28-Feb-2006 Influenza Administered on:25-Dec-2008 Prevnar 13 Intramuscular Suspension Administered on:09-Jan-2015 Lot #: [id number] Family History natural son Name Dates Details [...]
--- OUTSIDE RECORDS SUMMARY | 2016-12-20 11:16 | External Medical Summary | Summary of Care ---
:1930 Author Name Jenny Plasencia Address [address] [place], [place] [phone] Care Team Providers Name Role Phone Bandar Santana M.D. Unavailable Unavailable Uday Santana Primary Care Provider Unavailable [facility] ([place]) Referring Provider Unavailable Unavailable Unavailable Unavailable [...] Abnormal weight loss (783.21, R63.4) Status: Active Urinary retention (788.20, R33.9) Status: Active Benign colon polyp (211.3, K63.5) Status: Active Left ankle pain (719.47, M25.572) Status: Active Joint pain, knee (719.46, M25.569) Status: Active Dyspnea (786.09, R06.00) Status: Active Depression (311, F32.9) Status: Active Edema (782.3, R60.9) Status: Active Anemia (285.9, D64.9) Status: Active Abrasion, cheek with infection (910.1, S00.81XA) Status: Active Syncope (780.2, R55) Status: Active CAD (coronary atherosclerotic disease) (414.00, I25.10) Status: Active PTCA Status: Active Hyperlipidemia (272.4, E78.5) Status: Active Hypotension (458.9, I95.9) Status: Active Esophageal reflux (530.81, K21.9) Status: Active Medications Name Dates Details DuoNeb 0.5-2.5 (3) MG/3ML SOLN administer tid prn Refills: 0 Uday Santana M.D. Started 27-May-2009 ActiveOndansetron 4 MG Oral Tablet Dispersible 1 po q 4-6 hr prn nausea Refills: 0 Started 12-Aug-2010 ActiveTylenol 325 MG Oral Tablet 2 tabs po q 4 hr prn pain or temp over 101 Refills: 0 ActiveCetirizine HCl - 10 MG Oral Tablet TAKE 1 TABLET BY MOUTH EVERY DAY FOR ALLERGY Quantity: 31 Refills: 11 Uday Santana M.D. Started ActiveSM Hydrocortisone 1 % External Cream APPLY TWICE A DAY OR DIRECTED Quantity: 30 Refills: 0 Uday Santana M.D. Started 18-Jul-2011 ActiveVitamin C 500 MG Oral Tablet Take 1 tablet twice daily Refills: 0 Uday Santana M.D. Started 12-Sep-2011 ActiveSertraline HCl - 50 MG Oral Tablet Take 1 tablet daily Quantity: 31 Refills: 5 Uday Santana M.D. Started 23-Dec-2011 ActiveAtorvastatin Calcium 40 MG Oral Tablet TAKE 1/2 TABLET DAILY. Refills: 0 Uday Santana M.D. Started 23-Mar-2012 ActiveChildrens Aspirin 81 MG Oral Tablet Chewable CHEW AND SWALLOW 1 TABLET DAILY. Refills: 0 Uday Santana M.D. Started 04-Sep-2013 ActiveLatanoprost 0.005 % Ophthalmic Solution INSTILL 1 DROP IN BOTH EYES AT BEDTIME. Refills: 0 Uday Santana M.D. Started 04-Sep-2013 ActiveHydrocodone-Acetaminophen 5-325 MG Oral Tablet take 1/2 tab po BID prn Quantity: 15 Refills: 0 Uday Santana M.D. Started 04-Sep-2013 ActiveOxygen use 1-2 liters PRN for Dyspnea Refills: 0 Uday Santana M.D. Started 04-Sep-2013 ActiveMeloxicam 7.5 MG Oral Tablet TAKE 1 TABLET DAILY FOR ARTHRITIS Quantity: 31 Refills: 5 Uday Santana M.D. Started ActiveFurosemide 40 MG Oral Tablet TAKE 1 TABLET Every morning Quantity: 31 Refills: 5 Uday Santana M.D. Started ActiveAtorvastatin Calcium 20 MG Oral Tablet TAKE 1 TABLET DAILY AT BEDTIME Quantity: 31 Refills: 5 Uday Santana M.D. Started 24-Dec-2013 ActiveNystatin 260617 UNIT/GM External Cream APPLY AFFECTED AREA TWICE A DAY UNTIL HEALED Quantity: 30 Refills: 0 Uday Santana M.D. Started 23-Jan-2014 ActiveMupirocin 2 % External Ointment apply thin film to affected area of cheek TID x 10 days. Quantity: 1 Refills: 0 Uday Santana M.D. Started 28-May-2014 Ufgshu56 GM Tube Allergies and Adverse Reactions Name Dates Details Codeine Derivatives Reaction: Rash Status: Active Morphine Derivatives Reaction: Rash Status: Active Penicillins Reaction: Rash Status: Active Sulfa Drugs Reaction: Rash Status: Active Past Medical History Name Dates Details History of backache (V13.59, Z87.39) Status: Resolved History of candidiasis (V12.09, Z86.19) Status: Resolved History of chest pain (V13.89, Z87.898) Status: Resolved History of Dental infection (522.4, K04.7) Status: Resolved History of diarrhea (V12.79, Z87.19) Status: Resolved History of herpes zoster (V12.09, Z86.19) Status: Resolved History of hypertension (V12.59, Z86.79) Status: Resolved History of urethritis (V13.09, Z87.448) Status: Resolved History of Urinary Tract Infection [...] smoker Vital Signs Date Test Result Details 21-Aug-2014 16:31 BP Systolic 142 mm[Hg] Status: BP Diastolic 73 mm[Hg] Status: Heart Rate 77 /min Status: Respiration Rate 20 /min Status: Temperature 97.3 f Status: Results Date Description Value Details Results not documented Plan of Care Planned Observations Name Dates Details Planned Goals not documented Goal Planned Encounters Appointment; Provider: Jag Jenkins On 09-Jul-2015 15:15 Appointment; Provider: Uday Santana On 09:15 Appointment; Provider: Barry Macdonald On 22-Dec-2010 11:45 Appointment; Provider: Bryan Melara On 03-May-2009 08:30 Instructions Instructions not documented Encounters Appointment; Jenny Lopez On 21-Aug-2014 Encounter Diagnosis: [...] 05-Dec-2012 Encounter Diagnosis: Problem not documented 10:45 Appointment; Uday Santana On Encounter Diagnosis: Problem not documented 10:00
--- OUTSIDE RECORDS SUMMARY | 2016-12-20 11:16 | External Medical Summary ---
:1930 Author Name GENERATED, SYSTEM Care Team Providers Name Role Phone MD JAMEL, JESSICA BAUMAN Primary Care Provider [phone] Reason For Visit Chief Complaint CHEST PAIN Social History Functional Status Vital Signs Results Problems Encounter Diagnosis No relevant problems exist. Additional Problems Chest Pain Status:Active.Coronary Arteriosclerosis Status:Active.Fall Risk Status:Active.Infection Risk Status:Active.Mobility Impairment Status: Active.Skin Integrity Impairment Risk Status:Active. Encounters Encounter Diagnosis No relevant problems exist. [...]
--- OUTSIDE RECORDS SUMMARY | 2016-12-20 11:16 | External Medical Summary | Summary of Care ---
:1930 Author Name Allegra Estrada APRN Address [address] Unavailable [place], [place] [id number] Care Team Providers Name Role Phone Max Salinas, Bandar Frye Unavailable Unavailable David Epperson M.D. Unavailable Unavailable Uday Santana Unavailable Unavailable [facility] ([place]) Unavailable Unavailable [facility] ([place]) Unavailable Unavailable Unavailable Unavailable Unavailable Functional Status [...] 3 Max Salinas, Uday Portillo Start Active Vitamin [...] AT BEDTIME Quantity: 31 Refills: 0 Uday Sanatna M.D. Start 26-Feb-2015 Active Aspirin 81 MG [...] 13 Intramuscular Suspension on: 09-Jan-2015 Lot #: [id number] Family History natural son Name Dates Details [...] >60 ml/min Range: >60 EST GFR, NON-AFR CHINESE 51 ml/min (Below low Range: >60 threshold) [...] U/L Range: 73-393 05-Feb-2016 08:21 URINE CULTURE [id number] Comments: [facility] at: [place] [address] [place], [address], Equipment Lead: Clif Dunaway D.O., MPHQuest Collection Date/Time: [id number] Results Received Date/Time: [id number] Reported Date /Time: [id number] CULTURE, URINE, ROUTINE SEE NOTE Comments: Specimen cup submitted due to low sample volume. CULTURE, URINE, ROUTINE MICRO NUMBER: [id number] TEST STATUS: FINAL SPECIMEN SOURCE: NOT GIVEN SPECIMEN QUALITY: ADEQUATE RESULT: Three or more organisms present, each greater than 10,000 cu/mL. May represent normal james contamination from external genitalia. No further testing is required. COMMENT: The preferred specimen for urine culture is preserved and shipped in a BD urine transport tube that may be obtaine d from your [facility] supplier. Culture of unpreserved urine may produce falsely elevated bacterial counts.[IA]----- 19-Feb-2016 08:48 Urinalysis, Reflex to Microscopic or [...] Encounter Diagnosis: Problem not documented 13:00 Appointment; Udya Santana M.D. On 17-Apr-2015 Encounter Diagnosis: Problem [...] Problem not documented 09:30 Appointment; Jenny Lopez P.A. On 19-Mar-2014 Encounter Diagnosis: Problem not documented 13:00
--- OUTSIDE RECORDS SUMMARY | 2016-12-20 11:16 | External Medical Summary ---
:1930 Author Name GENERATED, SYSTEM Care Team Providers Name Role Phone MD JAMEL, JESSICA BAUMAN Primary Care Provider [phone] Reason For Visit Chief Complaint KIDNEY STONE Social History Functional Status Vital Signs Results Chemistry from 02/06/2016 3:58 [id number] MMOL/L (136-145 MMOL/L) POTASSIUM4.0 MMOL/L (3.5-5.1 MMOL/L) PTGDHPYE006 MMOL/L (98-107 MMOL/L) HYV659.9 MMOL/L (21.0-32.0 MMOL/L) *ANION GAP8.1 MMOL/L (8.0-16.0 MMOL/L) BUN13 MG/DL (7-18 MG/DL) CREATININE1.13 MG/DL H (0.55-1.02 MG/DL) *BUN/CREATININE RATIO11.5 (9.1-17.0 ) POQIHUN369 MG/DL H (65-99 MG/DL) *GFR EST NON AFR EJQHTKZA83 ML/MIN *GFR EST AFR AMER50 ML/MIN CALCIUM9.2 MG/DL (8.5-10.1 MG/DL) BILIRUBIN TOTAL0.40 MG/DL (0.20-1.00 MG/DL) TOTAL PROTEIN6.2 GM/DL L (6.4-8.2 GM/DL) ALBUMIN3.0 GM/DL L (3.4-5.0 GM/DL) *GLOBULIN3.2 GM/DL (2.3-3.5 GM/DL) *A/G RATIO0.9 MG/DL L (1.5-2.2 MG/DL) ALK PHOS91 U/L (46-116 U/L) ALT (SGPT)20 U/L (16-63 U/L) AST (SGOT)22 U/L (15-37 U/L)Hematology from 02/06/2016 3:58 PMWBC8.4 X10e3/UL ( 3.6-11.2 X10e3/UL) RBC4.12 X10e6/UL (3.63-4.92 X10e6/UL) EJQXDJWVOR06.1 G/DL (11.0-14.3 G/DL) YWXDKNNNQW33.1 % (31.2-41.9 %) *MCV90.1 FL (79.0-98.0 FL) *MCH29.3 PG (27.0-33.0 PG) *MCHC32.6 G/DL (32.0-36.0 G/DL) *RDW13.8 % (12.3-17.0 %) *RDWSD44.2 (37.1-47.8 ) DBASRNQJ950 X10e3/UL (159-386 X10e3/UL) *MPV7.1 FL L (7.4-10.4 FL) AUTOMATED DIFFPERFORMED SEGS64.2 % *VABCVCQMXAT87.6 % *MONOCYTES7.7 % *EOSINOPHILS2.2 % *BASOPHILS1.3 % *ABSOLUTE NEUTROPHILS5.40 X10e3/UL (1.80-7.80 X10e3/UL) *ABSOLUTE LYMPHOCYTES2.10 X10e3/UL (1.00-3.00 X10e3/UL) *ABSOLUTE MONOCYTES0.60 X10e3/UL (0.30-1.00 X10e3/UL) *ABSOLUTE EOSINOPHILS0.20 X10e3/UL (0.00-0.50 X10e3/UL) *ABSOLUTE BASOPHILS0.10 X10e3/UL (0.00-0.20 X10e3/UL)Urinalysis from 02/06/2016 4 :32 PM*URINE COLORYELLOW (STRAW/YELL/DK YELL ) *URINE APPEARANCESL CLOUDY A (CLEAR ) URINE PH5.5 (5.0-8.0 ) URINE SPECIFIC GRAVITY>1.030 (<=1.005->=1.030 ) *URINE GLUCOSENEGATIVE MG/DL (NEGATIVE MG/DL) *URINE BILIRUBINNEGATIVE (NEGATIVE ) *URINE KETONESNEGATIVE MG/DL (NEGATIVE MG/DL) *URINE BLOODNEGATIVE (NEGATIVE ) *URINE PROTEINNEGATIVE MG/DL (NEGATIVE MG/DL) *URINE UROBILINOGEN0.2 EU/DL (0.2-1.0 EU/DL) *URINE NITRITESPOSITIVE A (NEGATIVE ) *URINE LEUKOCYTESSMALL A (NEGATIVE ) *MICROSCOPIC EXAM PERFORMEDPERFORMED *WBC URINE5-10 /HPF A (0-5 /HPF) *SQUAMOUS EP. CELLSFEW /LPF (NEG-FEW /LPF) *BACTERIAMODERATE /HPF A (NEGATIVE /HPF) *COMMENTSee Below Problems Encounter Diagnosis No relevant problems exist. [...]
--- OUTSIDE RECORDS SUMMARY | 2016-12-20 11:17 | External Medical Summary | Summary of Care ---
:1930 Author Name Lisa Bruno D.O. Address [address] [place], [place] [id number] Care Team Providers Name Role Phone Lisa Bruno D.O. Unavailable Unavailable Max Salinas, Bandar Frye Unavailable Unavailable David Epperson M.D. Unavailable Unavailable Uday Santana Unavailable Unavailable [facility] ([place]) Unavailable Unavailable [facility]) Unavailable Unavailable Unavailable Unavailable Unavailable [...] (urinary tract infection) (599.0, N39.0) Status: Active Medications Name Dates Details Cetirizine [...] Refills: 5 Uday Santana M.D. Start Active Hydrocortisone 1 % External Cream [...] Quantity: 90 Refills: 1 Uday Santana M.D. Start 25-Feb-2015 Active Atorvastatin Calcium 20 MG [...] TABLET TWICE DAILY NEEDED. Refills: 0 Max Salinas Uday Deckery Start 12-Jan-2016 Active Triamcinolone Acetonide 0.1 % External Cream APPLY THIN FILM TO AFFECTED AREA(S) ONCE DAILY. Refills: 0 Max Salinas Uday Deckery Start 12-Jan-2016 Active Ciprofloxacin HCl - 500 MG Oral Tablet TAKE 1 TABLET Every twelve hours Quantity: 14 Refills: 0 Damion Downs Pierre Lisa Start 03-Feb-2016 End 10-Feb-2016 Active Allergies and Adverse Reactions Name Dates [...] 13 Intramuscular Suspension on: 09-Jan-2015 Lot #: [id number] Family History natural son Name Dates Details [...] smoker Vital Signs Date Test Result Details 03-Feb-2016 15:01 BP Systolic 167 mm[Hg] Status: Comments: Location: ; Position: BP Diastolic 75 mm[Hg] Status: Comments: Location: ; Position: Temperature 97.9 f Status: Heart Rate 91 /min Status: Comments: Location: ; Physical Findings 98 Status: Comments: O2 Saturation 12-Jan-2016 09:55 BP Systolic 128 mm[Hg] Status: [...] >60 ml/min Range: >60 EST GFR, NON-AFR FRENCH 56 ml/min (Below low Range: >60 threshold) Comments: EST GFR is reported in ml/min per 1.73 m2 of body surface area. ----- BUN:CREATININE RATIO 16 GLUCOSE 87 mg/dL Range: 70-100 CALCIUM 8.7 mg/dL Range: 8.5-10.1 03-Feb-2016 16:13 Urinalysis, Reflex to Microscopic or [...] >60 ml/min Range: >60 EST GFR, NON-AFR FRENCH 51 ml/min (Below low Range: >60 threshold) [...] Lipase 1275 LIPASE 147 U/L Range: 73-393 Plan of Care Name Dates Details Planned Observations Planned Goals not documented Planned Encounters Appointment; Provider: Jag Jenkins M.D. On 15:00 Appointment; Provider: Domingo Epperson M.D. On 09:30 Appointment; Provider: Uday Santana M.D. On 12-Apr-2016 10:00 Appointment; Provider: Schedule Radiology On 03-Feb-2016 15:45 Interventions Provided Medication ChangesCiprofloxacin HCl - 500 MG Oral Tablet - StartLabs/Procedures/ ImagingAMYLASE 1250; Done: Feb 03 2016 4:00PMCBC w/ Auto Diff 7150; Done: Feb 03 2016 4:00PMComprehensive Metabolic Panel 1212; Done: Feb 03 2016 4:00PMCT AB / PEL WITHOUT IV CONTRAST (FOR KIDNEY STONE); Done: Feb 03 2016 4:25PMLipase 1275; Done: Feb 03 2016 4:00PMUrinalysis, Reflex to Microscopic or Culture PRN [id number]; Done: Feb 03 2016 4:00PM Instructions Name Dates Details Instructions not documented [...]
--- OUTSIDE RECORDS SUMMARY | 2016-12-20 11:17 | External Medical Summary | Summary of Care ---
:1930 Author Name Bandar Santana M.D. Address Unavailable Unavailable , Care Team Providers Name Role Phone Max Salinas, Bandar Frye Unavailable Unavailable David Epperson M.D. Unavailable Unavailable Uday Santana Unavailable Unavailable [facility] ([place]) Unavailable Unavailable [facility] ([place]) Unavailable Unavailable Unavailable Unavailable Unavailable Functional Status [...] Status: Active Depression (311, F32.9) Status: Active Cough (786.2, R05) Status: Active Exposure to influenza (V01.79, Z20.828) Status: Active Medications Name Dates Details Cetirizine HCl - 10 MG Oral Tablet TAKE 1 TABLET BY MOUTH EVERY DAY FOR ALLERGY Quantity: 31 Refills: 3 Max Dean.Theodora.Uday Start Active Vitamin C 500 [...] 13 Intramuscular Suspension on: 09-Jan-2015 Lot #: [id number] Family History natural son Name Dates Details [...] Rate 92 /min Status: Comments: Location: ; 09-May-2016 13:24 BP Systolic 114 mm[Hg] Status: [...]
--- OUTSIDE RECORDS SUMMARY | 2016-12-20 11:17 | External Medical Summary | Summary of Care ---
:1930 Author Name Bandar Santana M.D. Address [address] [place], [place] [id number] Care Team Providers Name Role Phone Bandar Santana M.D. Unavailable Unavailable Uday Santana Primary Care Provider Unavailable [facility] ([place]) Referring Provider Unavailable Unavailable Unavailable Unavailable Functional Status Functional Status Health Issues Name Dates Details Functional status health issues are not documented Status: Cognitive Status Health Issues Name Dates Details Cognitive status health issues are not documented Status: Problems Name Dates Details Do Not Resuscitate Form In Chart Active Status: Active Anxiety (300.00, F41.1) Status: Active Routine history and physical examination [...] Refills: 0 Uday Santana M.D. Started 24-Dec-2013 Dsrnop01 Tablet Bottle Esomeprazole Magnesium 40 MG Oral Capsule Delayed Release TAKE 1 CAPSULE DAILY. Quantity: 30 Refills: 5 Uday Santana M.D. Started ActiveNystatin [id number] UNIT/GM External Cream APPLY 2-3 TIMES DAILY [...] Colonoscopy Completed:19-Mar-2007 CBC w/ Auto Diff 7150 Ordered: Comprehensive Metabolic Panel 1212 Ordered: LIPID PROFILE 1184 Ordered: THYROID STIM. HORMONE 3602 Ordered: Urinalysis, Reflex to Microscopic or Ordered: Culture PRN 8005 Immunization Name Dates Details Pneumo (Pneumovax) Administered [...] Body Surface Area Calculated 1.88 m2 Status: Results Date Description Value Details [...]
--- OUTSIDE RECORDS SUMMARY | 2016-12-20 11:17 | External Medical Summary | Summary of Care ---
:1930 Author Name Bandar Santana M.D. Address [address], [place] [id number] Care Team Providers Name Role Phone Bandar Santana M.D. Unavailable Unavailable Uday Santana Primary Care Provider Unavailable [facility] ([place]) Referring Provider Unavailable Unavailable [...] (272.4, E78.5) Status: Active PTCA Status: Active Hypotension (458.9, I95.9) Status: Active Esophageal reflux (530.81, K21.9) Status: Active Ingrown toenail (703.0, L60.0) Status: Active Medications Name Dates Details Tylenol 325 MG Oral Tablet 2 tabs po [...] Refills: 5 Uday Santana M.D. Started 24-Dec-2013 ActiveCephalexin 500 MG Oral Capsule TAKE 1 CAPSULE 3 TIMES DAILY. Quantity: 30 Refills: 0 Uday Santana M.D. Started 26-Sep-2014 Ended Active Allergies and Adverse Reactions Name Dates [...] smoker Vital Signs Date Test Result Details 26-Sep-2014 16:45 BP Systolic 130 mm[Hg] Status: [...] not documented Encounters Appointment; Uday Santana On 26-Sep-2014 Encounter Diagnosis: [...]
--- OUTSIDE RECORDS SUMMARY | 2016-12-20 11:17 | External Medical Summary | Summary of Care ---
:1930 Author Name Bandar Santana M.D. Address [address], [place] [id number] Care Team Providers Name Role Phone Bandar Santana M.D. Unavailable Unavailable David Epperson M.D. Unavailable Unavailable Uday Santana Primary Care Provider Unavailable [facility] ([place]) Referring Provider Unavailable Unavailable Unavailable Unavailable [...] for 4 days Quantity: 15 Refills: 0 Udya Santana M.D. Started 17-Jun-2015 Active Allergies and [...] 13 Intramuscular Suspension Administered on:09-Jan-2015 Lot #: [id number] Family History natural son Name Dates Details [...]
--- OUTSIDE RECORDS SUMMARY | 2016-12-20 11:18 | External Medical Summary | Summary of Care ---
:1930 Author Name Bandar Santana M.D. Address Unavailable Unavailable , Care Team Providers Name Role Phone Max Salinas, Bandar Frye Unavailable Unavailable David Epperson M.D. Unavailable Unavailable Uday Santana Unavailable Unavailable [facility] ([place]) Unavailable Unavailable [facility] ([place]) Unavailable Unavailable Unavailable Unavailable Unavailable Functional Status [...] 13 Intramuscular Suspension on: 09-Jan-2015 Lot #: [id number] Family History natural son Name Dates Details [...] to report Results Date Description Value Details 08-Jan-2016 08:25 [...] of Care Name Dates Details Planned Observations BASIC METABOLIC PROFILE 1210 On 01-Jan-2016 Intent Planned Goals not documented Planned Encounters Appointment; Provider: Jag Jenkins M.D. On 15:00 Appointment; Provider: Domingo Epperson M.D. On 09:30 Appointment; Provider: Uday Santana M.D. On 12-Jan-2016 10:00 Interventions Provided Labs/Procedures/ImagingCBC w/ Auto Diff 7150; Done: Jan 08 2016 7:25AM Instructions Name Dates Details Instructions not documented [...] Problem not documented 15:50 Appointment; Jenny Lopez P.AZay On 17-Sep-2015 Encounter Diagnosis: Problem not [...] Problem not documented 09:30 Appointment; Jenny Lopez PZayAZay On 19-Mar-2014 Encounter Diagnosis: Problem not documented 13:00 Appointment; Uday Santana M.D. On 20-Feb-2014 Encounter Diagnosis: Problem not documented 09:00
--- OUTSIDE RECORDS SUMMARY | 2016-12-20 11:18 | External Medical Summary | Summary of Care ---
:1930 Author Name Bandar Santana M.D. Address [address], [place] [id number] Care Team Providers Name Role Phone Bandar Santana M.D. Unavailable Unavailable Uday Santana Primary Care Provider Unavailable [facility] ([place]) Referring Provider Unavailable Unavailable Unavailable Unavailable Functional [...] Pleural effusion, left (511.9, J90) Status: Active Medications Name Dates Details Vitamin [...] 31 Refills: 11 Uday Santana M.D. Started ActiveMeloxicam 7.5 MG Oral Tablet TAKE 1 TABLET DAILY FOR ARTHRITIS Quantity: 31 Refills: 5 Uday Santana M.D. Started ActiveEsomeprazole Magnesium 40 MG Oral Capsule Delayed Release TAKE 1 CAPSULE DAILY. Quantity: 30 Refills: 5 Uday Santana M.D. Started ActiveSertraline HCl - [...] 31 Refills: 3 Uday Santana M.D. Started ActiveLevofloxacin 500 MG Oral Tablet TAKE 1 TABLET DAILY DIRECTED. Quantity: 10 Refills: 0 Started 26-Jan-2015 Ended 05-Feb-2015 ActiveIpratropium-Albuterol 0.5-2.5 (3) MG/3ML Inhalation Solution USE 1 UNIT DOSE IN NEBULIZER 4 TIMES DAILY. Refills: 0 Uday Santana M.D. Started 27-Jan-2015 ActiveHydrocortisone 1 % External Cream APPLY SPARINGLY AND RUB IN WELL TO AFFECTED AREA(S) DIRECTED. Refills: 0 Uday Santana M.D. Started 27-Jan-2015 ActiveMucinex 600 MG Oral Tablet Extended Release 12 Hour Take 1 po bid x10 days then prn Refills: 0 Started 27-Jan-2015 Active Allergies and Adverse Reactions Name Dates [...] 13 Intramuscular Suspension Administered on:09-Jan-2015 Lot #: [id number] Family History natural son Name Dates Details [...] Body Surface Area Calculated 1.85 m2 Status: 20-Jan-2015 14:45 BP Systolic 142 mm[Hg] Status: [...] Range: >60 low threshold) EST GFR, NON-AFR ANDORRAN 40 ml/min (Below Range: >60 low threshold) Comments: EST GFR is reported in ml/min per 1.73 m2 of body surface area. For -Peruvian, please multiple result by 1.2.----- GLUCOSE 97 [...] 12:29 Only) X KNEE (2V) LT (Better) 27-Jan-2015 14:08 XRay CHEST-PA & LAT Comments: Exam Date: 01/27/2015 13:08Dictation Date: 01/27/2015 14:08 X CHEST PA & LAT (Better) Plan of Care Planned Observations Name Dates Details Planned Goals not documented Goal Planned Encounters Appointment; Provider: Jag Jenkins On 09-Jul-2015 15:15 Appointment; Provider: Uday Santana On 17-Apr-2015 09:30 Appointment; Provider: Juan Moon On 19-Feb-2015 14:15 Appointment; Provider: Jenny Lopez On 19-Feb-2015 13:00 [...] Diagnosis: Problem not documented 09:45 Appointment; Uday aSntana On 18-Jul-2013 Encounter Diagnosis: Problem not documented [...]
--- OUTSIDE RECORDS SUMMARY | 2016-12-20 11:18 | External Medical Summary | Summary of Care ---
:1930 Author Name Jenny Plasencia Address [address] [place], [place] [id number] Care Team Providers Name Role Phone Max Salinas, Bandar Frey Unavailable Unavailable David Epperson M.D. Unavailable Unavailable Uday Santana Primary Care Provider Unavailable [facility] ([place]) Referring Provider Unavailable Unavailable Unavailable Unavailable Functional [...] 13 Intramuscular Suspension Administered on:09-Jan-2015 Lot #: [id number] Family History natural son Name Dates Details [...]
--- OUTSIDE RECORDS SUMMARY | 2016-12-20 11:18 | External Medical Summary | Summary of Care ---
:1930 Author Name Bandar Santana M.D. Address [address], [place] [phone] Care Team Providers Name Role Phone Bandar Santana M.D. Unavailable Unavailable David Epperson M.D. Unavailable Unavailable Uday Santana Primary Care Provider Unavailable [facility] ([place]) Referring Provider Unavailable Unavailable Unavailable Unavailable [...] WELL TO AFFECTED AREA(S) DIRECTED. Refills: 0 Uady Santana M.D. Started 27-Jan-2015 ActiveVitamin D3 2000 [...] 13 Intramuscular Suspension Administered on:09-Jan-2015 Lot #: [id number] Family History natural son Name Dates Details [...] Range: >60 low threshold) EST GFR, NON-AFR VIETNAMESE 37 ml/min (Below Range: >60 low threshold) Comments: EST GFR is reported in ml/min per 1.73 m2 of body surface area. For -Sudanese, please multiple result by 1.2.----- BUN:CREATININE RATIO 15 (Better) GLUCOSE 99 mg/dL (Better) Range: 70-100 CALCIUM 9.2 mg/dL (Better) Range: 8.5-10.1 13:45 X SPINE L-S COMPLETE (Better) Comments: Exam Date: 07/29/2015 12: 06Dictation Date: 07/29/2015 13:45 11-Aug-2015 15:03 X KNEE LEFT SUPINE (Better) [...] Diagnosis: Problem not documented 09:00 Appointment; Uday Santaan On 28-May-2014 Encounter Diagnosis: Problem not documented [...]
--- OUTSIDE RECORDS SUMMARY | 2016-12-20 11:18 | External Medical Summary | Summary of Care ---
:1930 Author Name Jenny Plasencia Address [address], [place] [phone] Care Team Providers Name Role Phone Bandar Santana M.D. Unavailable Unavailable Uday Santana Primary Care Provider Unavailable [facility] ([place]) Referring Provider Unavailable Unavailable Unavailable Unavailable Functional [...] Refills: 0 Uday Santana M.D. Started 27-May-2009 Active3 ML Plas Cont (30 Plas Conts) Potassium Chloride ER 10 MEQ Oral Tablet Extended Release TAKE 1 TABLET BY MOUTH TWICE A DAY Quantity: 62 Refills: 5 Uday Santana M.D. Started 09-Dec-2009 ActiveOndansetron 4 MG Oral Tablet Dispersible 1 [...] TABLET Every morning Quantity: 31 Refills: 5 Udya Santana M.D. Started ActiveAtorvastatin Calcium 20 MG Oral Tablet TAKE 1 TABLET DAILY AT BEDTIME Quantity: 31 Refills: 5 Uday Santana M.D. Started 24-Dec-2013 ActiveNystatin 106421 UNIT/GM External Cream APPLY AFFECTED AREA TWICE A DAY UNTIL HEALED Quantity: 30 Refills: 0 Uday Santana M.D. Started 23-Jan-2014 ActiveMupirocin 2 % External Ointment apply thin film to affected area of cheek TID x 10 days. Quantity: 1 Refills: 0 Uday Santana M.D. Started 28-May-2014 [id number] GM Tube Allergies and Adverse Reactions Name [...]
--- OUTSIDE RECORDS SUMMARY | 2016-12-20 11:19 | External Medical Summary | Summary of Care ---
:1930 Author Name Bandar Santana M.D. Address Unavailable Unavailable , Care Team Providers Name Role Phone Max Salinas, Bandar Frye Unavailable Unavailable David Epperson M.D. Unavailable Unavailable Uday Santana Unavailable Unavailable [facility] ([place]) Unavailable Unavailable [facility] ([place]) Unavailable Unavailable Unavailable Unavailable Unavailable Functional Status [...] R07.81) Status: Active Medications Name Dates Details Cetirizine [...] HOURS NEEDED Refills: 0 Max Salinas, Uday Deckery Start 17-Jun-2015 Active Bisacodyl 10 MG Rectal [...] MG/5ML Oral Suspension USE DIRECTED. Refills: 0 Udya Santana M.D. Start 08-Feb-2016 Active Midodrine HCl [...] CBC w/ Auto Diff 7150 Ordered: 12-Apr-2016 XRay SHOULDER-Left Ordered: 09-May-2016 XRay ELBOW-Left Ordered: 09-May-2016 XRay RIBS-Left Ordered: 09-May-2016 CT CTA CHEST Ordered: 05-Apr-2016 Immunization Name Dates Details Pneumo (Pneumovax) on: 17-Feb-2005 Pneumo (Pneumovax) on: 28-Feb-2006 Influenza on: 25-Dec-2008 Prevnar 13 Intramuscular Suspension on: 09-Jan-2015 Lot #: [id number] Family History natural son Name Dates Details [...] Position: Temperature 97.7 f Status: Heart Rate 88 /min Status: Comments: Location: ; 12-Apr-2016 10:08 BP Systolic 120 mm[Hg] Status: Comments: Location: ; Position: BP Diastolic 78 mm[Hg] Status: Comments: Location: ; Position: Heart Rate 62 /min Status: Comments: Location: ; Results Date Description Value Details 13-Apr-2016 15:26 CP Echo Y Linked PDF Report Available for Review by Clicking ImageLink Button Plan of Care Name Dates Details Planned Observations Planned Goals not documented Planned Encounters Appointment; Provider: Jag Jenkins M.D. On 15:00 Appointment; Provider: Lanie Conn On 14:00 Appointment; Provider: Uday Santana M.D. On 11-Jul-2016 10:00 Interventions Provided Labs/Procedures/ImagingXRay ELBOW-Left; To be Done: 09 May 2016XRay RIBS-Left; To be Done: 09 May 2016XRay SHOULDER-Left; To be Done: 09 May 2016 Instructions Name Dates Details Instructions not documented [...]
--- OUTSIDE RECORDS SUMMARY | 2016-12-20 11:19 | External Medical Summary | Summary of Care ---
:1930 Author Name Graciela Curtis Address [address] [place] [address] Care Team Providers Name Role Phone Graciela Curtis Unavailable Unavailable Max Salinas, Bandar Frye Unavailable Unavailable Zeenat Salinas, David Lane Unavailable Unavailable Uday Santana Unavailable Unavailable [facility] ([place]) Unavailable Unavailable [facility]) Unavailable Unavailable Unavailable Unavailable Unavailable [...] 13 Intramuscular Suspension on: 09-Jan-2015 Lot #: [id number] Family History natural son Name Dates Details [...] low Range: >60 threshold) EST GFR, NON-AFR MOSOTHO 47 ml/min (Below low Range: >60 threshold) [...] for MI0.10-0.59 ng/ml=Indeterminate for MI0.60-1.50 ng/ml=Suggestive of [place]----- 16:11 D - DIMER 7505 Comments: Critical [...]
--- OUTSIDE RECORDS SUMMARY | 2016-12-20 11:19 | External Medical Summary | Summary of Care ---
:1930 Author Name Allegra Estrada APRN Address [address] [place]available [place], [place] [phone] Care Team Providers Name Role Phone Allegra Estrada APRN Unavailable Unavailable Max Salinas, Bandar Frye Unavailable Unavailable Zeenat Salinas, David Lane Unavailable Unavailable Uday Santana Unavailable Unavailable [facility]) Unavailable Unavailable [facility]) Unavailable Unavailable Unavailable Unavailable Unavailable Functional Status [...] pain, acute, right (719.45, M25.551) Status: Active Medications Name Dates Details Cetirizine [...] AT BEDTIME. Refills: 0 Max Salinas, Uday oPrtillo Start 04-Sep-2013 Active Hydrocodone-Acetaminophen 5-325 MG Oral [...] Oral Suspension USE DIRECTED. Refills: 0 Max MartinoTheodora., Uday Portillo Start 08-Feb-2016 Active Tylenol 325 [...] 13 Intramuscular Suspension on: 09-Jan-2015 Lot #: [id number] Family History natural son Name Dates Details [...] Signs Date Test Result Details 08-Feb-2016 10:05 Heart Rate 68 /min Status: Comments: Location: ; Weight 170 lb Status: Body Mass Index Calculated 25.1 kg/m2 Status: Body Surface Area Calculated 1.93 m2 Status: BP Systolic 124 mm[Hg] Status: Comments: Location: ; Position: BP Diastolic 80 mm[Hg] Status: Comments: Location: ; Position: 03-Feb-2016 15:01 Temperature 97.9 f Status: Heart Rate 91 /min Status: Comments: Location: ; Physical Findings 98 Status: Comments: O2 Saturation BP Systolic 167 mm[Hg] Status: Comments: Location: ; Position: BP Diastolic 75 mm[Hg] Status: Comments: Location: ; Position: Results Date Description Value Details 03-Feb-2016 16:13 [...] >60 ml/min Range: >60 EST GFR, NON-AFR THAI 51 ml/min (Below low Range: >60 threshold) [...] U/L Range: 73-393 05-Feb-2016 08:21 URINE CULTURE [id number] Comments: official.fm performed at: [facility], [address] [place], [address], Musculoskeletal Physician: Clif Dunaway D.O., MPHQuest Collection Date/Time: [id number] Results Received Date/Time: [id number] Reported Date /Time: [id number] CULTURE, URINE, ROUTINE SEE NOTE Comments: Specimen cup submitted due to low sample volume. CULTURE, URINE, ROUTINE MICRO NUMBER: [id number] TEST STATUS: FINAL SPECIMEN SOURCE: NOT GIVEN SPECIMEN QUALITY: ADEQUATE RESULT: Three or more organisms present, each greater than 10,000 cu/mL. May represent normal james contamination from external genitalia. No further testing is required. COMMENT: The preferred specimen for urine culture is preserved and shipped in a BD urine transport tube that may be obtaine d from your [employer] supplier. Culture of unpreserved urine may produce falsely elevated bacterial counts.[[place]]----- 19-Feb-2016 08:48 Urinalysis, Reflex to Microscopic or [...] Santana M.D. On 12-Apr-2016 10:00 Interventions Provided Labs/Procedures/ImagingXRay HIP-Left; To be Done: 23 Feb 2016Xray PELVIS (AP ONLY); To be Done: 23 Feb 2016Xray Spine Lumbar (2 Views Only); To be Done: 23 Feb 2016 Instructions Name Dates Details Instructions not [...] Problem not documented 10:00 Appointment; Jenny Lopez, P.A. On 28-May-2015 Encounter Diagnosis: Problem not documented [...] Problem not documented 09:30 Appointment; Jenny Lopez P.AZay On 19-Mar-2014 Encounter Diagnosis: Problem not documented 13:00
--- OUTSIDE RECORDS SUMMARY | 2016-12-20 11:20 | External Medical Summary | Summary of Care ---
:1930 Author Name Bandar Santana M.D. Address Unavailable Unavailable , Care Team Providers Name Role Phone Max Salinas, Bandar Frye Unavailable Unavailable David Epperson M.D. Unavailable Unavailable Uday Santana Unavailable Unavailable [facility] ([place]) Unavailable Unavailable [facility] ([place]) Unavailable Unavailable Unavailable Unavailable Unavailable Functional Status [...] Status: Active Anemia (285.9, D64.9) Status: Active Hypotension (458.9, I95.9) Status: Active Hyperlipidemia (272.4, E78.5) Status: Active CAD (coronary atherosclerotic disease) (414.00, I25.10) Status: Active Abnormal weight loss (783.21, R63.4) Status: Active Visit for periodic health examination (V70.0, Z00.00) Status: Active Medications Name [...] Refills: 0 Uday Santana M.D. Start Active Atorvastatin Calcium 20 MG Oral Tablet TAKE 1 TABLET DAILY AT BEDTIME Quantity: 31 Refills: 0 Uday Santana M.D. Start 26-Feb-2015 Active Bisacodyl 10 MG Rectal Suppository INSERT 1 SUPPOSITORY RECTALLY ONCE DAILY. Refills: 0 Delmis Santana M.D.ony Bandar Start 12-Jan-2016 Active Mucinex 600 MG Oral Tablet Extended Release 12 Hour TAKE 1 TABLET TWICE DAILY NEEDED. Refills: 0 Max Gillis., Uday Bandar Start 12-Jan-2016 Active Triamcinolone Acetonide [...] Max Salinas, Uday Bandar Start 08-Feb-2016 Active Pepto-Bismol 262 MG Oral [...] 13 Intramuscular Suspension on: 09-Jan-2015 Lot #: [id number] Family History natural son Name Dates Details [...] >60 ml/min Range: >60 EST GFR, NON-AFR SYRIAN 54 ml/min (Below low Range: >60 threshold) [...]
--- OUTSIDE RECORDS SUMMARY | 2016-12-20 11:20 | External Medical Summary | Summary of Care ---
:1930 Author Name Bandar Santana M.D. Address Unavailable Unavailable , Care Team Providers Name Role Phone Max Salinas, Bandar Frye Unavailable Unavailable David Epperson M.D. Unavailable Unavailable Uday Santana Unavailable Unavailable [facility] ([place]) Unavailable Unavailable [facility] ([place]) Unavailable Unavailable Unavailable Unavailable Unavailable Functional [...] USE DIRECTED. Refills: 0 Max M.D., Uday Deckery Start 08-Feb-2016 Active Mylanta 200-200-20 MG/5ML Oral Suspension USE DIRECTED. Refills: 0 Max M.D., Uday Portillo Start 08-Feb-2016 Active Allergies and Adverse Reactions Name Dates [...] 13 Intramuscular Suspension on: 09-Jan-2015 Lot #: [id number] Family History natural son Name Dates Details [...] Location: ; Position: Temperature 97.9 f Status: Comments: Method: Heart Rate 91 /min Status: Comments: Location: [...] m2 Status: Results Date Description Value Details 03-Feb-2016 16:13 [...] >60 ml/min Range: >60 EST GFR, NON-AFR UZBEK 51 ml/min (Below low Range: >60 threshold) [...] U/L Range: 73-393 05-Feb-2016 08:21 URINE CULTURE [id number] Comments: DataRPM performed at: [facility], [address] [place], [address], Lead Nurse: Clif Dunaway D.O., MPHQuest Collection Date/Time: [id number] Results Received Date/Time: [id number] Reported Date /Time: [id number] CULTURE, URINE, ROUTINE SEE NOTE Comments: Specimen cup submitted due to low sample volume. CULTURE, URINE, ROUTINE MICRO NUMBER: [id number] TEST STATUS: FINAL SPECIMEN SOURCE: NOT GIVEN SPECIMEN QUALITY: ADEQUATE RESULT: Three or more organisms present, each greater than 10,000 cu/mL. May represent normal james contamination from external genitalia. No further testing is required. COMMENT: The preferred specimen for urine culture is preserved and shipped in a BD urine transport tube that may be obtaine d from your [employer] supplier. Culture of unpreserved urine may produce falsely elevated bacterial counts.[[place]]----- Plan of Care Name Dates Details Planned Observations Planned Goals not documented Planned Encounters Appointment; Provider: Jag Jenkins M.D. On 15:00 Appointment; Provider: Domingo Epperson M.D. On 09:30 Appointment; Provider: Uday Santana M.D. On 12-Apr-2016 10:00 Instructions Name Dates Details Instructions not documented Encounters Appointment; Pierre Bruno D.O. On 03-Feb-2016 Encounter [...]
--- OUTSIDE RECORDS SUMMARY | 2016-12-20 11:20 | External Medical Summary | Continuity of Care Document ---
:1930 Author Organization [facility] Allergies Active Description Code Type Severity Reaction Onset Reported/ Identified Relationship Clinical to Patient Status Yes PCN SULFA Drug N/A N/A CODEINE Aller MORPHINE gy Medications Problems Date Dx Coded Attending Type Code Diagnosis Diagnosed By 02/12/2016 ARISTEO URENA N200 Calculus of kidney 02/12/2016 ARISTEO URENA N390 Urinary tract infection, site not specified 02/12/2016 ARISTEO URENA R109 Unspecified abdominal pain 02/12/2016 ARISTEO URENA [id number] Personal history of urinary calculi 02/13/2016 ARISTEO URENA N200 Calculus of kidney 02/13/2016 ARISTEO URENA N390 Urinary tract infection, site not specified 02/13/2016 ARISTEO URENA R109 Unspecified abdominal pain 02/13/2016 ARISTEO URENA [id number] Personal history of urinary calculi Procedures Code Description Performed By Performed On 02/06/2016 44516 02/06/2016 88048 02/06/2016 80261 02/06/2016 07481 02/06/2016 92251 02/06/2016 46205 02/06/2016 89166 02/06/2016 81462 02/06/2016 A9270 02/06/2016 J0696 02/06/2016 J1885 02/06/2016 J2405 Results Encounters ACCT No. Visit Discharge Status Pt. Type Provider Facility Loc./Unit Complaint Date/Time [id number] 02/06/2016 02/06/2016 DIS Emergen[facility] ROMEL, <PV2.3. 440 15:21:00 22:51:34 y ARISTEO 2>Unspe cified abdominal pain</P V2.3.2> <PV2.3. 2>KIDNE Y STONE</ PV2.3.2&gt ;<PV2.3 .2>Calc ulus of kidney< /PV2.3.2&g t;<PV2. 3.2>Uri nary tract infection, site not specified& lt;/PV2.3. 2><P V2.3.2> Personal history of urinary calculi&lt ;/PV2.3.2& gt; [id number] 11/06/2015 11/07/2015 DIS Emergenc ROSENBERRY, RAO, HIT 081 13:51:00 00:59:03 y QUIANA OVIEDO [id number] 03/12/2015 03/14/2015 DIS Inpatien JAMEL, 453 13:03:00 15:08:39 t JESSICA BAUMAN [id number] 03/12/2015 03/14/2015 DIS Outpatie UNASSIGNED 079 07:18:00 03:30:00 nt DOCTOR, DOCTOR 1226 02/22/2016 02/22/2016 CLS Outpatie [facility] 14:06:00 23:59:59 nt [facility]
--- NOTE | 2016-12-20 11:42 | XRay Report ---
Indication: Medical clearance PROCEDURE: XR chest 1V: Encounter: Initial Comparison: None Findings: Cardiac monitoring device projecting over the left heart border. Mild interstitial prominence in the lungs without focal consolidative pneumonia. No pleural effusion or pneumothorax. Cardiac silhouette is mildly enlarged. Mediastinal contours are within normal limits. Impression: Moderate interstitial prominence could represent mild pulmonary edema or atypical/viral pneumonia. .
[2016-12-20] MEDS ORDERED: FOSFOMYCIN 3 GRAM PACKET PO ONE (12:07)
[2016-12-20] MEDS ORDERED: HALOPERIDOL 5 MG/ML INJECTION IM PRN (12:39)
[2016-12-20] MEDS ORDERED: LORazepam 0.5 MG TABLET PO PRN (12:39)
[2016-12-20] MEDS ORDERED: HALOPERIDOL 0.5 MG TABLET PO PRN (12:39)
[2016-12-20] MEDS ORDERED: ONDANSETRON 4 MG TABLET PO PRN (12:42)
[2016-12-20] MEDS ORDERED: CETIRIZINE 10 MG TABLET PO PRN (12:42)
[2016-12-20] MEDS ORDERED: GUAIFENESIN LA 600 MG TABLET PO PRN (12:42)
[2016-12-20] MEDS ORDERED: POLYETHYL GLYCOL 3350 17gm PACKET PO PRN (12:42)
--- NOTE | 2016-12-20 16:13 | History & Physical Report ---
<Vida Looney - Last Filed: 12/20/16 19:46> History of Present Illness Date: 12/20/16 Chief complaint: "Digging" out her stools and painting on the wall with her stools HPI: Patient is an 86-year-old female who was admitted [facility] from her PCP's office, (Dr. Bandar Santana) in [place] for evaluation regarding behavioral concerns. The patient tells me she frequently has to "dig" her stool out manually because she is unable to evacuate it otherwise. She reports she has had this problem for "quite a while." She doesn't understand why she is here. She states that her doctor told her that the [facility] staff was concerned that she was using the stool to "paint on the draper." She reports that her vision is not good and she frequently does not know when her hands are dirty. She believes she had stool on her hand and was reaching for the toilet paper and accidentally hit the wall with her stool covered hand and this is what the staff is considering her "painting on the draper." In review of [facility] notes, it is noted that she refuses MiraLAX and other laxatives or stool softeners. Review of Systems Comprehensive ROS: completed and no additional positive findings except those as stated PFSH Constipation Hypertension Hyperlipidemia Coronary atherosclerotic disease Depression/anxiety Osteoporosis Chronic indwelling Bhatia catheter due to chronic bladder issues Osteoarthritis GERD Mild pulmonary hypertension History of Anemia Surgical History: Appendectomy. Cholecystectomy. Carpal tunnel surgery. Spinal discectomy. Total abdominal hysterectomy with oophorectomy. Total bilateral knee replacements. Total hip replacement. Coronary stent placement 2. Cystoscopy with biopsy Family History: Father with coronary artery disease Mother with breast cancer Sister with colon cancer Brother with coronary artery disease Son with colon cancer - Social History Smoking status: Never smoker Substance use type: does not use Alcohol intake frequency: does not drink Housing: [facility] Current occupational status: retired Social history: Patient is PCP-Dr. Bandar Santana, [place] Medications Home Medications Medication Instructions Recorded Confirmed Type Acetaminophen 325 - 500 mg PO Q4HPRN 12/20/16 12/20/16 History Acetaminophen [Acetaminophen Extra 500 mg PO DAILY 12/20/16 12/20/16 History Strength] Ascorbic Acid [Vitamin C] 1,000 mg PO DAILY 12/20/16 12/20/16 History Aspirin [Adult Low Dose Aspirin EC] 81 mg PO DAILY 12/20/16 12/20/16 History Bisacodyl Supp [Dulcolax] 10 mg RECTALLY PRN PRN 12/20/16 12/20/16 History Bismuth Subsalicylate [Kaopectate] 262 mg PO Q6HPRN PRN 12/20/16 12/20/16 History Cetirizine [Zyrtec] 10 mg PO PRN PRN 12/20/16 12/20/16 History Cholecalciferol [Vit. D-3] 1,000 unit PO DAILY 12/20/16 12/20/16 History Docusate Sodium [Colace] 1 cap PO HS 12/20/16 12/20/16 History Esomeprazole Magnesium [Nexium] 20 mg PO DAILY 12/20/16 12/20/16 History Hydrocodone/Acetaminophen 0.5 tab PO HS 12/20/16 12/20/16 History [Hydrocodon-Acetaminophen 5-325] Hydrocodone/Acetaminophen 0.5 tab PO Q4-6HPRN PRN 12/20/16 12/20/16 History [Hydrocodon-Acetaminophen 5-325] Latanoprost [Latanoprost] 1 drop EACH EYE HS 12/20/16 12/20/16 History Mag Hydrox/Aluminum Hyd/Simeth 2 - 4 tsp PO Q8HPRN PRN 12/20/16 12/20/16 History [Maalox Advanced Suspension] Meloxicam [Meloxicam] 7.5 mg PO DAILY 12/20/16 12/20/16 History Midodrine [Proamatine] 5 mg PO BID 12/20/16 12/20/16 History Milk of Magnesia [Mom] 30 - 60 ml PO PRN PRN 12/20/16 12/20/16 History Ondansetron HCl 4 mg PO Q4HPRN PRN 12/20/16 12/20/16 History Polyethylene Glycol 3350 [Miralax] 17 gm PO DAILY PRN 12/20/16 12/20/16 History Propylene Glycol [Systane Balance] 1 drop OP BID 12/20/16 12/20/16 History Sertraline [Zoloft] 50 mg PO DAILY 12/20/16 12/20/16 History guaiFENesin [Mucinex] 600 mg PO [id number] PRN 12/20/16 12/20/16 History Allergies Allergy/AdvReac Type Severity Reaction Status Date / Time codeine [Codiene] Allergy Unknown Verified 12/20/16 10:58 morphine Allergy Unknown Verified 12/20/16 10:58 Penicillins Allergy Unknown Verified 12/20/16 10:57 Sulfa (Sulfonamide Allergy Unknown Verified 12/20/16 10:58 Antibiotics) Exam Vital Signs: Temperature 97.6 F 12/20/16 13:24 Pulse Rate 70 12/20/16 13:24 Respiratory Rate 16 12/20/16 13:24 Blood Pressure 169/78 H 12/20/16 13:24 Pulse Oximetry 98 12/20/16 13:24 Height/Weight/BMI: Height 1.68 m - Constitutional Present: no acute distress, well nourished, well developed - Routine HEENT Exam Head: Present: normocephalic, atraumatic Eye: Present: EOMI. Absent: conjunctival icterus ENT: Present: mucous membranes moist. Absent: dentition normal (edentulous) - Routine Neck Exam Present: supple, full ROM - Routine Respiratory Exam Present: CTA bilaterally. Absent: wheezes - Routine Cardiovascular Exam Present: RRR, S1, S2. Absent: murmur - Routine Abdominal Exam Present: soft, non distended. Absent: normoactive bowel sounds (hyperactive bowel sounds), tenderness - Routine Extremities Exam Present: no edema, normal capillary refill - Routine Skin Exam Present: dry, warm - Routine Neurological Exam Present: alert, oriented X3 Cranial nerves III-XII grossly intact. - Routine Psychiatric Exam Present: normal affect, normal thought process, cooperative Comments: She is able to answer all questions appropriately. No significant or obvious memory deficits. She is oriented to full date, place, self. Results - Labs CBC & Chem 7: 12/20/16 11:06 12/20/16 11:06 Labs: Laboratory Tests 12/20/16 11:48 Ur Collection Type Urine, clean catch Urine Color Yellow Urine Clarity Cloudy Urine pH 6.5 Ur Specific [place] 1.015 Urine Protein Trace A Urine Ketones Trace A Urine Occult Blood Negative Urine Nitrate Negative Urine Bilirubin Negative Urine Urobilinogen 1.0 Ur Leukocyte Esterase 2+ A Urine RBC 0-1 Urine WBC 30-50 H Ur Squamous Epith Cells 20-50 Amorphous Sediment Moderate Urine Bacteria 4+ H Ur Culture Indicated? Cult reflexed &setup - Imaging and Cardiology Chest x-ray Additional comments: Chest x-ray Mild interstitial prominence in the lungs without focal consolidative pneumonia. Impression: Moderate interstitial prominence could represent mild pulmonary edema or atypical/viral pneumonia Assessment and Plan (1) Episode of abnormal behavior Current visit: Yes Status: Acute Assessment and Plan: Assessment Episode of abnormal behavior regarding stooling-question if this is cognitive impairment versus confusion related to UTI versus misunderstanding of nursing staff Urinary tract infection Interstitial prominence on chest x-ray-mild pulmonary edema versus atypical/ viral pneumonia (POA) Constipation Hypertension Hyperlipidemia Coronary atherosclerotic disease Depression/anxiety Osteoporosis Chronic indwelling Bhatia catheter due to chronic bladder issues Osteoarthritis GERD Mild pulmonary hypertension History of Anemia Plan Admission to [facility] to evaluate cognition and functional abilities and provide safe environment. Patient had positive urinalysis at PCPs office and was started on Cipro, however , on admission through the emergency room here, she was treated with fosfomycin , thus negating need to continue Cipro. Given normal pulmonary exam and lack of clinical symptoms, suspect abnormal chest x-ray is related to mild pulmonary edema given patient has history of mild pulmonary hypertension. Will follow clinically. Work on bowel motivation. Goal will be to keep stools very soft for easy evacuation eliminating need for self disimpaction. Continue chronic medications for ongoing medical problems. Hospitalist team will follow patient's ongoing medical problems throughout her stay. Sepsis Assessment - Evaluation Sepsis screening result: No Definite Risk Hospital Course Summary Disclaimer: The visit summary below is not to be considered part of the above Progress Note. Hospital Course: 12/20/16 20:14 Assessment Episode of abnormal behavior regarding stooling-question if this is cognitive impairment versus misunderstanding of nursing staff Interstitial prominence on chest x-ray-mild pulmonary edema versus atypical/ viral pneumonia (POA) Constipation Hypertension Hyperlipidemia Coronary atherosclerotic disease Depression/anxiety Osteoporosis Chronic indwelling Bhatia catheter due to chronic bladder issues Osteoarthritis GERD Mild pulmonary hypertension History of Anemia Plan Admission to [facility] to evaluate cognition and functional abilities and provide safe environment. Given normal pulmonary exam and lack of clinical symptoms, suspect abnormal chest x-ray is related to mild pulmonary edema given patient has history of mild pulmonary hypertension. Will follow clinically. Work on bowel motivation. Goal will be to keep stools very soft for easy evacuation eliminating need for self disimpaction. Continue chronic medications for ongoing medical problems. Hospitalist team will follow patient's ongoing medical problems throughout her stay. <MessinaRula bradley - Last Filed: 12/21/16 19:18> History of Present Illness Date: 12/21/16 [facility] Patient Stated Medical History Other HEENT Yes: Allergic Rhinitis Congestive Heart Failure Yes Coronary Artery Disease Yes Hypotension Yes Other Respiratory Yes: Hx of influenza Gastroesophageal Reflux Yes Disease Other GI Yes: constipation Hx Urinary Tract Infection Yes Anemia Yes Clotting Problems Yes Osteoarthritis Yes Other Musculoskeletal Yes: Arthrofibrosis, De Quervain's tenosynovitis , Osteoporosis, Bursitis Other Yes: Dermatitis Depression Yes Post Menopausal Yes Exam Vital Signs: Temperature 96.6 F L 12/21/16 16:00 Pulse Rate 71 12/21/16 16:00 Respiratory Rate 16 12/21/16 16:00 Blood Pressure 165/82 H 12/21/16 16:00 Pulse Oximetry 98 12/21/16 16:00 Oxygen Delivery Method Room Air Height/Weight/BMI: Height 1.68 m Results - Labs CBC & Chem 7: 12/20/16 11:06 12/20/16 11:06 Assessment and Plan (1) Episode of abnormal behavior Current visit: Yes Status: Acute Assessment and Plan: 12/21/2016-I reviewed this chart, the patient history, and the STAFF RESEARCH ASSOCIATE's/PA's documented findings as above. We discussed and formulated the assessment and plan as above with the additions below.-Dr. Messina Patient was seen today in the day room in her wheelchair. She states she is feeling well. She has no complaints. She denies any chest pain. She denies pain anywhere. She denies shortness of breath. She denies nausea. She states she is eating and drinking well. On exam she is alert and in no acute distress. She is very pleasant. Chest is clear to auscultation. Cardiovascular reveals a regular rate and rhythm. Abdomen is soft and nontender. Extremities reveal trace nonpitting edema. She is wearing a leg bag for her Bhatia catheter. Laboratory White count is 7.3, hemoglobin 10.9, platelets 215 Comprehensive metabolic is normal other than chloride of 113, carbon dioxide 21 , BUN 24, glucose 115 TSH is normal Urine culture reveals Escherichia coli and enterococcus species-sensitivities are pending. The patient was treated with 1 dose of fosfomycin orally. Impression Behavior changes UTI with Escherichia coli and enterococcus-sensitivities pending-we'll change Bhatia catheter if not done already Mild normocytic anemia Medically, the patient appears stable. Plan Continue with current care plan as noted above. Will change Bhatia catheter. Hospital Course Summary Disclaimer: The visit summary below is not to be considered part of the above Progress Note. Addendum entered and electronically signed by Vida Looney PA 12/20/16 20:23 : Patient reports last bowel movement (small) was last night.
[2016-12-20] MEDS ORDERED: DOCUSATE SODIUM 100 MG CAPSULE PO SCH (21:00)
[2016-12-20] MEDS: MIDODRINE 5 MG TABLET PO SCH (21:15)
[2016-12-20] MEDS: LATANOPROST 0.005% EYE DROPS 2.5ml EACH EYE SCH (21:15)
[2016-12-20] MEDS: SENNA + DOCUSATE TABLET PO SCH (21:15)
--- NOTE | 2016-12-20 21:25 | 24 Hour Neuropsychiatic Eval ---
Date of Admission: 12/20/16 12:37 Chief complaint: "I'm constipated" History of Present Illness: HPI: 86 Y/O CF [facility] for behaviors, primarily smearing her feces on the wall. On face to face the pt states she has been dealing with constipation and feels she has to use her finger to remove it. She states she has poor vision and is trying to clean her finger and is not attempting to spread it. Pt is alert and oriented x 3. She voices no concerns at this time. STRESSORS: Constipation. According to [place] staff she refuses laxatives. PSYCH ROS: Pt denies feeling depressed. She reports sleeping well and having a good appetite. Denies anxiety, edenilson or psychosis. PAST PSYCH: Pt states she saw a psychiatrist many years ago after having several deaths in her family. She denies ever trying to harm herself and has never been in a psychiatric hospital. She is currently on Zoloft PFSH Patient Stated Medical History Other HEENT Yes: Allergic Rhinitis Congestive Heart Failure Yes Coronary Artery Disease Yes Hypotension Yes Other Respiratory Yes: Hx of influenza Gastroesophageal Reflux Yes Disease Other GI Yes: constipation Hx Urinary Tract Infection Yes Anemia Yes Clotting Problems Yes Osteoarthritis Yes Other Musculoskeletal Yes: Arthrofibrosis, De Quervain's tenosynovitis , Osteoporosis, Bursitis Other Yes: Dermatitis Depression Yes Post Menopausal Yes Medical History Updates: Constipation. Atypical chest pain. Anemia. Hypotension. Hyperlipidemia. CAD. Weight loss, unintentional. Allergic rhinitis. Anxiety. Osteoarthritis, multiple joints. Dementia. GERD. DeQuervain's tenosynovitis Surgical History: Appendectomy. Cholecystectomy. Carpal tunnel surgery. Spinal discectomy. Total abdominal hysterectomy with oophorectomy. Total bilateral knee replacements. Total hip replacement. Coronary stent placement 2. Cystoscopy with biopsy - Social History Smoking status: Never smoker Mental Status Exam Vitals: Last Vital Signs Temp 97.7 F 12/20/16 16:24 Pulse 70 12/20/16 16:24 Resp 16 12/20/16 16:24 BP 144/72 H 12/20/16 16:24 Pulse Ox 97 12/20/16 16:24 Height: 1.68 m Weight: 65.3 kg - Mental Status Exam Muscle Strength/Tone: Normal Dressing: Casual Grooming: Good Attitude: Cooperative Motor Activity: Normal Eye Contact: Fair Speech: Slowed Volume: Soft Rhythm: Appropriate Rhythm Orientation: Oriented X4 Mood: Neutral Affect: Relaxed Rate of Thoughts: Delayed Thought Organization: [place] Associations: Intact Abstract Reasoning: Poor abstract reasoning Thought Content: Normal Perception/Psychotic: Perception Normal Language: Naming Intact Fund of Knowledge: Appropriate Memory: Grossly Intact Suicidal Ideation: None Homicidal Ideation: None Insight: Poor Judgement: Poor Impulse Control: Fair - Laboratory Result Diagrams: 12/20/16 11:06 12/20/16 11:06 Assessment and Plan (1) Major 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 Will continue Zoloft and monitor. Will limit anticholinergics
[2016-12-21] MEDS: OMEPRAZOLE 20 MG CAPSULE PO SCH (06:05)
[2016-12-21] MEDS ORDERED: NON-FORMULARY MEDICATION 1 EACH EACH (Esomeprazole Magnesium [Nexium] 20 MG) PO SCH (09:00)
[2016-12-21] MEDS ORDERED: MELOXICAM 7.5 MG TABLET PO SCH (09:00)
[2016-12-21] MEDS: ASCORBIC ACID 500 MG TABLET PO SCH (09:15)
[2016-12-21] MEDS: POLYETHYL GLYCOL 3350 17gm PACKET PO SCH (09:15)
[2016-12-21] MEDS: ASPIRIN *EC* 81 MG TABLET PO SCH (09:15)
[2016-12-21] MEDS: SERTRALINE 50 MG TABLET PO SCH (09:15)
[2016-12-21] MEDS: MIDODRINE 5 MG TABLET PO SCH ×2 (09:16→20:44)
[2016-12-21] MEDS: SENNA + DOCUSATE TABLET PO SCH ×2 (09:56→20:44)
[2016-12-21] MEDS ORDERED: GUAIFENESIN LA 600 MG TABLET PO PRN (17:30)
--- NOTE | 2016-12-21 18:29 | Progress Note ---
Progress Note: 12/21/16 Nurse calls to report that patient's PCP's (Dr. Santana) office called to give order to DC the Cipro that she was started on for UTI prior to admission here, and be started on Rocephin. This information is noted, however, patient's Cipro was discontinued when she arrived in our emergency department prior to [facility]. She was given fosfomycin for her urinary tract infection at that point. No further antibiotics are indicated. There is a urine culture (which was collected in the ER)currently pending showing preliminary growth of Escherichia coli. Vida Looney PA-C
--- NOTE | 2016-12-21 20:24 | Neuropsych Progress Note ---
Masood Subjective Date: 12/21/16 - Sujective/Severity of Illness Medications: Ascorbic Acid (Vitamin C) 1,000 mg PO DAILY [facility] Last Admin: 12/21/16 09:15 Dose: 1,000 mg Aspirin (Ecotrin) 81 mg PO DAILY [facility] Last Admin: 12/21/16 09:15 Dose: 81 mg Cetirizine HCl (Zyrtec) 10 mg PO PRN PRN Cholecalciferol (Vit. D-3) 1,000 unit PO DAILY [facility] Last Admin: 12/21/16 09:16 Dose: 1,000 unit Guaifenesin (Mucinex La) 600 mg PO Q12H PRN Haloperidol (Haldol) 0.5 mg PO Q6H PRN PRN Reason: Extreme agitation Haloperidol Lactate (Haldol) 0.5 mg IM Q6H PRN PRN Reason: Extreme agitation Latanoprost (Xalatan) 1 drops EACH EYE HS [facility] Last Admin: 12/20/16 21:15 Dose: 1 drops Lorazepam (Ativan) 0.5 mg PO Q6H PRN PRN Reason: Extreme agitation Lorazepam (Ativan Inj) 0.5 mg IM Q6H PRN PRN Reason: Extreme agitation Meloxicam (Mobic) 7.5 mg PO WB [facility] Midodrine (Proamatine) 5 mg PO BID [facility] Last Admin: 12/21/16 09:16 Dose: 5 mg Omeprazole (Prilosec) 20 mg PO ACB [facility] Last Admin: 12/21/16 06:05 Dose: 20 mg Ondansetron HCl (Zofran Po) 4 mg PO Q4HPRN PRN PRN Reason: Nausea Polyethylene Glycol (Miralax) 17 gm PO DAILY [facility] Last Admin: 12/21/16 09:15 Dose: 17 gm Senna/Docusate Sodium (Senna Plus Tablet) 2 tab PO BID [facility] Last Admin: 12/21/16 09:56 Dose: 2 tab Sertraline HCl (Zoloft) 50 mg PO DAILY [facility] Last Admin: 12/21/16 09:15 Dose: 50 mg Subjective: Pt seen and chart examined. Nursing reports pt is doing well. Sleeping well and has a good appetite. No behaviors noted. On face to face the pt states she is doing well. Mood stable. Alert and oriented x 3. Tolerating meds. Voices no concerns Start Time: 17:45 Stop Time: 18:00 Mental Status Exam Vitals: Last Vital Signs Temp 96.6 F L 12/21/16 16:00 Pulse 71 12/21/16 16:00 Resp 16 12/21/16 16:00 BP 165/82 H 12/21/16 16:00 Pulse Ox 98 12/21/16 16:00 Height: 1.68 m Weight: 65.3 kg - Mental Status Exam Muscle Strength/Tone: Normal Dressing: Casual Grooming: Good Attitude: Cooperative Motor Activity: Normal Eye Contact: Fair Speech: Slowed Volume: Soft Rhythm: Appropriate Rhythm Orientation: Oriented X4 Mood: Neutral Rate of Thoughts: Delayed Thought Organization: [place] Associations: Intact Abstract Reasoning: Poor abstract reasoning Thought Content: Normal Perception/Psychotic: Perception Normal Language: Naming Intact Fund of Knowledge: Appropriate Memory: Grossly Intact Suicidal Ideation: None Homicidal Ideation: None Insight: Poor Judgement: Poor Impulse Control: Fair - Laboratory Result Diagrams: 12/20/16 11:06 12/20/16 11:06 Assessment and Plan (1) Major 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 Hospital Course: 12/20/16 20:14 Assessment Episode of abnormal behavior regarding stooling-question if this is cognitive impairment versus misunderstanding of nursing staff Interstitial prominence on chest x-ray-mild pulmonary edema versus atypical/ viral pneumonia (POA) Constipation Hypertension Hyperlipidemia Coronary atherosclerotic disease Depression/anxiety Osteoporosis Chronic indwelling Bhatia catheter due to chronic bladder issues Osteoarthritis GERD Mild pulmonary hypertension History of Anemia Plan Admission to [facility] to evaluate cognition and functional abilities and provide safe environment. Given normal pulmonary exam and lack of clinical symptoms, suspect abnormal chest x-ray is related to mild pulmonary edema given patient has history of mild pulmonary hypertension. Will follow clinically. Work on bowel motivation. Goal will be to keep stools very soft for easy evacuation eliminating need for self disimpaction. Continue chronic medications for ongoing medical problems. Hospitalist team will follow patient's ongoing medical problems throughout her stay. 12/21/16 20:24 PT doing well. Continue current care
[2016-12-21] MEDS: LATANOPROST 0.005% EYE DROPS 2.5ml EACH EYE SCH (20:44)
[2016-12-22] MEDS: OMEPRAZOLE 20 MG CAPSULE PO SCH (05:44)
[2016-12-22] MEDS: POLYETHYL GLYCOL 3350 17gm PACKET PO SCH (08:46)
[2016-12-22] MEDS: SENNA + DOCUSATE TABLET PO SCH ×2 (08:46→23:36)
[2016-12-22] MEDS: ASCORBIC ACID 500 MG TABLET PO SCH (08:46)
[2016-12-22] MEDS: SERTRALINE 50 MG TABLET PO SCH (08:47)
[2016-12-22] MEDS: MIDODRINE 5 MG TABLET PO SCH ×3 (08:47→23:36)
[2016-12-22] MEDS: ASPIRIN *EC* 81 MG TABLET PO SCH (08:47)
[2016-12-22] MEDS: MELOXICAM 7.5 MG TABLET PO SCH (08:47)
[2016-12-22] MEDS: LATANOPROST 0.005% EYE DROPS 2.5ml EACH EYE SCH ×2 (19:27→23:36)
--- NOTE | 2016-12-22 19:56 | Neuropsych Progress Note ---
[facility] Subjective Date: 12/22/16 - Sujective/Severity of Illness Medications: Ascorbic Acid (Vitamin C) 1,000 mg PO DAILY [facility] Last Admin: 12/22/16 08:46 Dose: 1,000 mg Aspirin (Ecotrin) 81 mg PO DAILY [facility] Last Admin: 12/22/16 08:47 Dose: 81 mg Cetirizine HCl (Zyrtec) 10 mg PO PRN PRN Cholecalciferol (Vit. D-3) 1,000 unit PO DAILY [facility] Last Admin: 12/22/16 08:47 Dose: 1,000 unit Guaifenesin (Mucinex La) 600 mg PO Q12H PRN Haloperidol (Haldol) 0.5 mg PO Q6H PRN PRN Reason: Extreme agitation Haloperidol Lactate (Haldol) 0.5 mg IM Q6H PRN PRN Reason: Extreme agitation Latanoprost (Xalatan) 1 drops EACH EYE HS [facility] Last Admin: 12/22/16 19:27 Dose: 1 drops Lorazepam (Ativan) 0.5 mg PO Q6H PRN PRN Reason: Extreme agitation Lorazepam (Ativan Inj) 0.5 mg IM Q6H PRN PRN Reason: Extreme agitation Meloxicam (Mobic) 7.5 mg PO WB [facility] Last Admin: 12/22/16 08:47 Dose: 7.5 mg Midodrine (Proamatine) 5 mg PO BID [facility] Last Admin: 12/22/16 19:29 Dose: 5 mg Omeprazole (Prilosec) 20 mg PO ACB [facility] Last Admin: 12/22/16 05:44 Dose: 20 mg Ondansetron HCl (Zofran Po) 4 mg PO Q4HPRN PRN PRN Reason: Nausea Polyethylene Glycol (Miralax) 17 gm PO DAILY [facility] Last Admin: 12/22/16 08:46 Dose: 17 gm Senna/Docusate Sodium (Senna Plus Tablet) 2 tab PO BID [facility] Last Admin: 12/22/16 08:46 Dose: 2 tab Sertraline HCl (Zoloft) 50 mg PO DAILY [facility] Last Admin: 12/22/16 08:47 Dose: 50 mg Subjective: Pt seen and chart examined. Nursing reports pt is doing well. Sleeping well and has a good appetite. No behaviors noted. On face to face the pt states she is doing well. Mood stable. Alert and oriented x 3. Voices no concerns. Tolerating meds Start Time: 17:15 Stop Time: 17:30 Mental Status Exam Vitals: Last Vital Signs Temp 98.2 F 12/22/16 16:00 Pulse 81 12/22/16 16:00 Resp 16 12/22/16 16:00 BP 157/84 H 12/22/16 16:00 Pulse Ox 97 12/22/16 16:00 Height: 1.68 m Weight: 65.3 kg - Mental Status Exam Muscle Strength/Tone: Normal Dressing: Casual Grooming: Good Attitude: Cooperative Motor Activity: Normal Eye Contact: Fair Speech: Slowed Volume: Soft Rhythm: Appropriate Rhythm Orientation: Oriented X4 Mood: Neutral Rate of Thoughts: Delayed Thought Organization: [place] Associations: Intact Abstract Reasoning: Poor abstract reasoning Thought Content: Normal Perception/Psychotic: Perception Normal Language: Naming Intact Fund of Knowledge: Appropriate Memory: Grossly Intact Suicidal Ideation: None Homicidal Ideation: None Insight: Poor Judgement: Poor Impulse Control: Fair - Laboratory Result Diagrams: 12/20/16 11:06 12/20/16 11:06 Assessment and Plan (1) Major 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 Hospital Course: 12/20/16 20:14 Assessment Episode of abnormal behavior regarding stooling-question if this is cognitive impairment versus misunderstanding of nursing staff Interstitial prominence on chest x-ray-mild pulmonary edema versus atypical/ viral pneumonia (POA) Constipation Hypertension Hyperlipidemia Coronary atherosclerotic disease Depression/anxiety Osteoporosis Chronic indwelling Bhatia catheter due to chronic bladder issues Osteoarthritis GERD Mild pulmonary hypertension History of Anemia Plan [facility]mission [facility] to evaluate cognition and functional abilities and provide safe environment. Given normal pulmonary exam and lack of clinical symptoms, suspect abnormal chest x-ray is related to mild pulmonary edema given patient has history of mild pulmonary hypertension. Will follow clinically. Work on bowel motivation. Goal will be to keep stools very soft for easy evacuation eliminating need for self disimpaction. Continue chronic medications for ongoing medical problems. Hospitalist team will follow patient's ongoing medical problems throughout her stay. 12/21/16 20:24 PT doing well. Continue current care 12/22/16 19:55 Plan D/C for tomorrow
--- NOTE | 2016-12-22 20:10 | Discharge Instructions ---
Discharge Plan - Med Rec/Dispo Referrals/Follow Up: Nohemi Santana [Family Provider] - (Dr. Alexandra Santana's office will call patient with date and time of Hosp. follow- up appt. . Patient will be seen on rounds at the facility for Mental Health follow-up. 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 IN CASE OF PSYCHIATRIC EMERGENCY, CONTACT [facility] AT [phone] ( available 24 hrs daily). Prescriptions: Continue Sertraline [Zoloft] 50 mg PO DAILY No Action Hydrocodone/Acetaminophen [Hydrocodon-Acetaminophen 5-325] 0.5 tab PO Q4- 6HPRN PRN PRN Reason: Pain Ondansetron HCl 4 mg PO Q4HPRN PRN PRN Reason: Nausea guaiFENesin [Mucinex] 600 mg PO [id number] PRN PRN Reason: Prn Orders Mag Hydrox/Aluminum Hyd/Simeth [Maalox Advanced Suspension] 2 - 4 tsp PO Q8HPRN PRN PRN Reason: Prn Orders Bismuth Subsalicylate [Kaopectate] 262 mg PO Q6HPRN PRN PRN Reason: Prn Orders Acetaminophen 325 - 500 mg PO Q4HPRN Bisacodyl Supp [Dulcolax] 10 mg RECTALLY PRN PRN PRN Reason: Prn Orders Esomeprazole Magnesium [Nexium] 20 mg PO DAILY Docusate Sodium [Colace] 1 cap PO HS Midodrine [Proamatine] 5 mg PO BID Latanoprost [Latanoprost] 1 drop EACH EYE HS Propylene Glycol [Systane Balance] 1 drop OP BID Cholecalciferol [Vit. D-3] 1,000 unit PO DAILY Aspirin [Adult Low Dose Aspirin EC] 81 mg PO DAILY Meloxicam [Meloxicam] 7.5 mg PO DAILY Polyethylene Glycol 3350 [Miralax] 17 gm PO DAILY PRN PRN Reason: Constipation Cetirizine [Zyrtec] 10 mg PO PRN PRN PRN Reason: Prn Orders Milk of Magnesia [Mom] 30 - 60 ml PO PRN PRN PRN Reason: Constipation Hydrocodone/Acetaminophen [Hydrocodon-Acetaminophen 5-325] 0.5 tab PO HS Acetaminophen [Acetaminophen Extra Strength] 500 mg PO DAILY Ascorbic Acid [Vitamin C] 1,000 mg PO DAILY Discharge Instructions/Outpatient Orders: Final Provider Discharge Instructions Location: Determined By Patient - Disposition 04 To [facility] Home/Facility
--- NOTE | 2016-12-22 20:15 | Extended Care Facility Orders ---
Admission Orders Admit to:: Other Allergies/Adverse Reactions: Allergies codeine [Codiene] Allergy (Unknown, Verified 12/20/16 10:58) morphine Allergy (Unknown, Verified 12/20/16 10:58) Penicillins Allergy (Unknown, Verified 12/20/16 10:57) Sulfa (Sulfonamide Antibiotics) Allergy (Unknown, Verified 12/20/16 10:58) Admitting Diagnosis: Major neurocognitive disorder Admitting Physician: Daniela Condon MD Attending Physician: Daniela Condon MD Anticiapted Length of Stay: greater than 30 days Rehab Potential: fair Rehab Prognosis: fair Diet: 12/20/16 Dinner Regular Diet [DIET] Diet Modifications: May use Facility Protocol or Standing Orders: Yes May have flu vaccine: Yes Evaluations/Treatment: as needed Half-Way Certification: I certify that SNF services are required to be given on an Inpatient basis because of the patients need for senior living care on a continuing basis for the condition(s) for which he/she received inpatient hospital services prior to his/her transfer to the SNF. SNF inpatient care is necessary for the following reasons Indication for Half-Way: Not Applicable - Additional Information In Event of Arrest: Start CPR,call 911,send patient to the ER Resident is Aware of Diagnosis: No Referrals: Nohemi Santana [Family Provider] - (Dr. Alexandra Santana's office will call patient with date and time of Hosp. follow- up appt. . Patient will be seen on rounds at the facility for Mental Health follow-up. .)
[2016-12-23] MEDS: OMEPRAZOLE 20 MG CAPSULE PO SCH (05:39)
[2016-12-23] MEDS: POLYETHYL GLYCOL 3350 17gm PACKET PO SCH (08:03)
[2016-12-23] MEDS: SENNA + DOCUSATE TABLET PO SCH (08:03)
[2016-12-23] MEDS: ASPIRIN *EC* 81 MG TABLET PO SCH (08:03)
[2016-12-23] MEDS: MELOXICAM 7.5 MG TABLET PO SCH (08:03)
[2016-12-23] MEDS: MIDODRINE 5 MG TABLET PO SCH (08:03)
[2016-12-23] MEDS: ASCORBIC ACID 500 MG TABLET PO SCH (08:04)
[2016-12-23] MEDS: SERTRALINE 50 MG TABLET PO SCH (08:04)
[2016-12-23 08:08] VITALS: BP 150/78; PULSE 78; RESP 22; TEMP 97.6; O2SAT 97
--- NOTE | 2016-12-23 09:20 | Discharge Instructions ---
Discharge Plan - Med Rec/Dispo Referrals/Follow Up: Nohemi Santana [Family Provider] - 1 Week (Dr. Alexandra Santana's office will call patient with date and time of Hosp. follow- up appt. . Patient will be seen on rounds at the facility for Mental Health follow-up. 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 IN CASE OF PSYCHIATRIC EMERGENCY, CONTACT [facility] STAFF AT [phone] ( available 24 hrs daily). The hospitalist service was consulted for medical management. Please follow up on the followin. She arrived with UTI, and culture grew out high-colony E. coli and E. faecalis. She received fosfomycin x1 in the ED, which should cover both organisms. Please recheck UA in outpatient setting. 2. She did not receive [place] during her short stay in [facility], but it was listed as a scheduled med at night as well as PRN. The HS dose was discontinued for now - please resume if it's helpful for her. Prescriptions: Continue Ondansetron HCl 4 mg PO Q4HPRN PRN PRN Reason: Nausea guaiFENesin [Mucinex] 600 mg PO [id number] PRN PRN Reason: Prn Orders Mag Hydrox/Aluminum Hyd/Simeth [Maalox Advanced Suspension] 2 - 4 tsp PO Q8HPRN PRN PRN Reason: Prn Orders Bismuth Subsalicylate [Kaopectate] 262 mg PO Q6HPRN PRN PRN Reason: Prn Orders Acetaminophen 325 - 500 mg PO Q4HPRN Bisacodyl Supp [Dulcolax] 10 mg RECTALLY PRN PRN PRN Reason: Prn Orders Esomeprazole Magnesium [Nexium] 20 mg PO DAILY Docusate Sodium [Colace] 1 cap PO HS Midodrine [Proamatine] 5 mg PO BID Latanoprost 1 drop EACH EYE HS Sertraline [Zoloft] 50 mg PO DAILY Propylene Glycol [Systane Balance] 1 drop OP BID Cholecalciferol [Vit. D-3] 1,000 unit PO DAILY Aspirin [Adult Low Dose Aspirin EC] 81 mg PO DAILY Meloxicam 7.5 mg PO DAILY Polyethylene Glycol 3350 [Miralax] 17 gm PO DAILY PRN PRN Reason: Constipation Cetirizine [Zyrtec] 10 mg PO PRN PRN PRN Reason: Prn Orders Milk of Magnesia [Mom] 30 - 60 ml PO PRN PRN PRN Reason: Constipation Acetaminophen [Acetaminophen Extra Strength] 500 mg PO DAILY Ascorbic Acid [Vitamin C] 1,000 mg PO DAILY Changed Hydrocodone/Acetaminophen [Hydrocodon-Acetaminophen 5-325] 0.5 tab PO Q6HPRN PRN #5 tablet PRN Reason: Pain Discontinued Hydrocodone/Acetaminophen [Hydrocodon-Acetaminophen 5-325] 0.5 tab PO HS Discharge Instructions/Outpatient Orders: Final Provider Discharge Instructions Location: Determined By Patient
--- NOTE | 2016-12-23 10:18 | Discharge Instructions ---
Discharge Plan - Med Rec/Dispo Referrals/Follow Up: Nohemi Santana [Family Provider] - 1 Week (Dr. Alexandra Santana's office will call patient with date and time of Hosp. follow- up appt. . Patient will be seen on rounds at the facility for Mental Health follow-up. 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 IN CASE OF PSYCHIATRIC EMERGENCY, CONTACT [employer] STAFF AT [phone] ( available 24 hrs daily). The hospitalist service was consulted for medical management. Please follow up on the followin. She arrived with UTI, and culture grew out high-colony E. coli and E. faecalis. She received fosfomycin x1 in the ED, which should cover both organisms. Please recheck UA in outpatient setting. 2. She did not receive [place] during her short stay in [facility], but it was listed as a scheduled med at night as well as PRN. The HS dose was discontinued for now - please resume if it's helpful for her. 3. We increased her bowel regimen - stopped Colace and Started Senna Plus BID. Prescriptions: New Senna + Docusate [Senna Plus Tablet] 2 tab PO BID tablet Continue Ondansetron HCl 4 mg PO Q4HPRN PRN PRN Reason: Nausea guaiFENesin [Mucinex] 600 mg PO [id number] PRN PRN Reason: Prn Orders Mag Hydrox/Aluminum Hyd/Simeth [Maalox Advanced Suspension] 2 - 4 tsp PO Q8HPRN PRN PRN Reason: Prn Orders Bismuth Subsalicylate [Kaopectate] 262 mg PO Q6HPRN PRN PRN Reason: Prn Orders Acetaminophen 325 - 500 mg PO Q4HPRN Bisacodyl Supp [Dulcolax] 10 mg RECTALLY PRN PRN PRN Reason: Prn Orders Esomeprazole Magnesium [Nexium] 20 mg PO DAILY Midodrine [Proamatine] 5 mg PO BID Latanoprost 1 drop EACH EYE HS Sertraline [Zoloft] 50 mg PO DAILY Propylene Glycol [Systane Balance] 1 drop OP BID Cholecalciferol [Vit. D-3] 1,000 unit PO DAILY Aspirin [Adult Low Dose Aspirin EC] 81 mg PO DAILY Meloxicam 7.5 mg PO DAILY Polyethylene Glycol 3350 [Miralax] 17 gm PO DAILY PRN PRN Reason: Constipation Cetirizine [Zyrtec] 10 mg PO PRN PRN PRN Reason: Prn Orders Milk of Magnesia [Mom] 30 - 60 ml PO PRN PRN PRN Reason: Constipation Acetaminophen [Acetaminophen Extra Strength] 500 mg PO DAILY Ascorbic Acid [Vitamin C] 1,000 mg PO DAILY Changed Hydrocodone/Acetaminophen [Hydrocodon-Acetaminophen 5-325] 0.5 tab PO Q6HPRN PRN #5 tablet PRN Reason: Pain Discontinued Docusate Sodium [Colace] 1 cap PO HS Hydrocodone/Acetaminophen [Hydrocodon-Acetaminophen 5-325] 0.5 tab PO HS Discharge Instructions/Outpatient Orders: Final Provider Discharge Instructions Location: Determined By Patient
--- NOTE | 2016-12-29 17:50 | Neuropsychiatric Disch Summary ---
Discharge Information Date of admission: 12/20/16 12:37 Attending Physician: Daniela Condon MD Primary care physician: Nohemi Santana Consults: 12/20/16 12:39 Case Management Consult [CONS] Routine Reason For Exam: medical management Physician Consult [CONS] Routine Consulting Provider: Swetha Greer Reason For Exam: medical management Ordering Provider has Notified Grain Receiver: No - Discharge Diagnosis Discharge Diagnosis: Major neurocognitive Disorder with behavioral Disturbance Date of Admission: 12/20/16 12:37 History of Present Illness: HPI: 86 Y/O CF sent from [employer] in [facility] for behaviors, primarily smearing her feces on the wall. On face to face the pt states she has been dealing with constipation and feels she has to use her finger to remove it. She states she has poor vision and is trying to clean her finger and is not attempting to spread it. Pt is alert and oriented x 3. She voices no concerns at this time. STRESSORS: Constipation. According to MD staff she refuses laxatives. PSYCH ROS: Pt denies feeling depressed. She reports sleeping well and having a good appetite. Denies anxiety, edenilson or psychosis. PAST PSYCH: Pt states she saw a psychiatrist many years ago after having several deaths in her family. She denies ever trying to harm herself and has never been in a psychiatric hospital. She is currently on [facility] This is a general summary of the patient's hospital course. For more details refer to the complete medical record. 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 Given normal pulmonary exam and lack of clinical symptoms, suspect abnormal chest x-ray is related to mild pulmonary edema given patient has history of mild pulmonary hypertension. Will follow clinically. Work on bowel motivation. Goal will be to keep stools very soft for easy evacuation eliminating need for self disimpaction. Continue chronic medications for ongoing medical problems. Hospitalist team will follow patient's ongoing medical problems throughout her stay. 12/21/16 20:24 PT doing well. Continue current care 12/22/16 19:55 Plan D/C for tomorrow Discharge Plan - Med Rec/Dispo Referrals/Follow Up: Nohemi Santana [Family Provider] - 1 Week (Dr. Alexandra Santana's office will call patient with date and time of Hosp. follow- up appt. . Patient will be seen on rounds at the facility for Mental Health follow-up. 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 IN CASE OF PSYCHIATRIC EMERGENCY, CONTACT [employer] STAFF AT [phone] ( available 24 hrs daily). The hospitalist service was consulted for medical management. Please follow up on the followin. She arrived with UTI, and culture grew out high-colony E. coli and E. faecalis. She received fosfomycin x1 in the ED, which should cover both organisms. Please recheck UA in outpatient setting. 2. She did not receive [place] during her short stay in [facility], but it was listed as a scheduled med at night as well as PRN. The HS dose was discontinued for now - please resume if it's helpful for her. 3. We increased her bowel regimen - stopped Colace and Started Senna Plus BID. Prescriptions: New Senna + Docusate [Senna Plus Tablet] 2 tab PO BID tablet Continue Ondansetron HCl 4 mg PO Q4HPRN PRN PRN Reason: Nausea guaiFENesin [Mucinex] 600 mg PO [id number] PRN PRN Reason: Prn Orders Mag Hydrox/Aluminum Hyd/Simeth [Maalox Advanced Suspension] 2 - 4 tsp PO Q8HPRN PRN PRN Reason: Prn Orders Bismuth Subsalicylate [Kaopectate] 262 mg PO Q6HPRN PRN PRN Reason: Prn Orders Acetaminophen 325 - 500 mg PO Q4HPRN Bisacodyl Supp [Dulcolax] 10 mg RECTALLY PRN PRN PRN Reason: Prn Orders Esomeprazole Magnesium [Nexium] 20 mg PO DAILY Midodrine [Proamatine] 5 mg PO BID Latanoprost 1 drop EACH EYE HS Sertraline [Zoloft] 50 mg PO DAILY Propylene Glycol [Systane Balance] 1 drop OP BID Cholecalciferol [Vit. D-3] 1,000 unit PO DAILY Aspirin [Adult Low Dose Aspirin EC] 81 mg PO DAILY Meloxicam 7.5 mg PO DAILY Polyethylene Glycol 3350 [Miralax] 17 gm PO DAILY PRN PRN Reason: Constipation Cetirizine [Zyrtec] 10 mg PO PRN PRN PRN Reason: Prn Orders Milk of Magnesia [Mom] 30 - 60 ml PO PRN PRN PRN Reason: Constipation Acetaminophen [Acetaminophen Extra Strength] 500 mg PO DAILY Ascorbic Acid [Vitamin C] 1,000 mg PO DAILY Changed Hydrocodone/Acetaminophen [Hydrocodon-Acetaminophen 5-325] 0.5 tab PO Q6HPRN PRN #5 tablet PRN Reason: Pain Discontinued Docusate Sodium [Colace] 1 cap PO HS Hydrocodone/Acetaminophen [Hydrocodon-Acetaminophen 5-325] 0.5 tab PO HS Discharge Instructions/Outpatient Orders: Final Provider Discharge Instructions Location: Determined By Patient - Disposition 04 To [facility] Home/Facility
== END 2016-12-23 13:10 | DRG 57 ==
LOC: ED 10:37 → GEN 12:37
PROVIDERS: ADMIT Psychiatry & Neurology Psychiatry; ATTEND Psychiatry & Neurology Psychiatry